=== PATIENT | female | born 1940 | race Caucasian/White ===

== ENCOUNTER 2016-12-08 20:41 | Inpatient (IN) | payer OTHER ==
[~2016-12-08] VITALS: Ht 144.8 cm; Wt 112.5 kg
[~2016-12-08 20:41] MED LIST: ADALAT CC60 MG PO; AMOXICILLIN500 MG PO; BIAXIN500 MG PO; CATAPRES0.1 MG PO; DEXILANT60 MG PO; DIOVAN HCT 25 M1 TA1 PO; DOC-Q-LACE100 M1 PO; ECOTRIN81 MG PO; FENTANYL TP; GLUCOPHAGE500 MG PO; IMDUR30 MG PO; IMDUR60 M1 PO; K-DUR10 MEQ PO; LASIX20 MG PO; LYRICA150 MG PO; LYRICA50 MG PO; LYRICA75 MG PO; NITROSTAT0.4 M1 SL; NORCO 10/325 MG1 TAB PO; NORCO 325 MG-7.1 TAB PO; NUVIGIL150 MG PO; PROTONIX40 MG PO; RANEXA500 MG PO; ULTRAM50 MG PO; VALSARTAN AND H1 TA3 PO; ZANTAC150 MG PO; ZOCOR20 MG PO
--- NOTE | 2016-12-08 20:53 | NUR ---
PT AMBULATED TO BED 1 WITH A CANE
[2016-12-08] MEDS ORDERED: NITROGLYCERIN 2% 1 GM PKT TP ONE (20:55)
[2016-12-08] MEDS ORDERED: ASPIRIN 325 MG TAB PO ONE (20:55)
[2016-12-08] MEDS ORDERED: MORPHINE SULFATE 4 MG/ML SYR IVP ONE (20:55)
[2016-12-08 21:00] VITALS: BP 133/41
--- NOTE | 2016-12-08 21:05 | NUR ---
76Y F BIB SPOUSE C/O CHEST PAIN W/ SOB AND NAUSEA, DENIES VOMITTING AND DIARRHEA. PAIN DESCRIBED PRESSSURE 8/10 IN SCALE. HX OF DM, HTN, HEART MURMUR. ARTHRITIS. SKIN IS PINK/WARM/DRY; AAOX4 WITH EVEN AND STEADY GAIT; LUNGS CLEAR BL; HR EVEN AND REGULAR; PT DENIES ANY FEVER, CP, SOB, OR COUGH AT THIS TIME; PATIENT STATES PAIN OF /10 AT THIS TIME; VSS; PATIENT POSITIONED FOR COMFORT; HOB ELEVATED; BEDRAILS UP X2; BED DOWN. ER MD MADE AWARE OF PT STATUS.
--- NOTE | 2016-12-08 21:16 | NUR ---
Dr. Bee evaluating patient at bedside.
[2016-12-08] MEDS ORDERED: diphenhydrAMINE 50 MG/ML VIAL IVP ONE (21:20)
--- NOTE | 2016-12-08 21:21 | NUR ---
X-Ray at bedside.
--- NOTE | 2016-12-08 21:25 | NUR ---
PT STATES CHEST PAIN 5/10
--- NOTE | 2016-12-08 22:59 | NUR ---
PT STATES CHEST PAIN 0/10
--- NOTE | 2016-12-08 23:10 | NUR ---
ALL VITAL SIGNS ENTERED FROM MONITOR
[2016-12-08] MEDS ORDERED: NITROGLYCERIN 0.4 MG TAB SL PRN (23:40)
[2016-12-08] MEDS ORDERED: MORPHINE SULFATE 2 MG/ML SYR IVP PRN (23:45)
[2016-12-08] MEDS ORDERED: ALUMINUM HYD/MAG/SIMETHICONE 30 ML UDC PO PRN (23:45)
[2016-12-08] MEDS ORDERED: DEXTROSE 50% 50 ML SYR IVP PRN (23:45)
[2016-12-08] MEDS ORDERED: ZOLPIDEM 5 MG TAB PO PRN (23:45)
[2016-12-08] MEDS ORDERED: ACETAMINOPHEN 325 MG TAB PO PRN ×2 (23:45)
[2016-12-08] MEDS ORDERED: LORazepam 1 MG TAB PO PRN (23:45)
[2016-12-08] MEDS ORDERED: INSULIN LISPRO SLIDING SCALE 100 UNITS/ML VIAL SUBQ PRN (23:45)
[2016-12-08] MEDS ORDERED: RANITIDINE HYD150 M2 PO (23:52)
[2016-12-08] MEDS ORDERED: RANEXA500 M1 PO (23:52)
[2016-12-08] MEDS ORDERED: DIOVAN320 MG PO (23:52)
[2016-12-08] MEDS ORDERED: TOPCARE ASPIRIN81 MG PO (23:52)
[2016-12-08] MEDS ORDERED: SIMVASTATIN20 M1 PO (23:52)
[2016-12-08] MEDS ORDERED: CLONIDINE HCL0.2 M1 PO (23:52)
[2016-12-08] MEDS ORDERED: ONDANSETRON4 MG PO (23:52)
[2016-12-08] MEDS ORDERED: NUVIGIL150 MG PO (23:52)
[2016-12-08] MEDS ORDERED: ISOSORBIDE MONO60 M1 PO (23:52)
[2016-12-08] MEDS ORDERED: FUROSEMIDE20 M1 PO (23:52)
--- NOTE | 2016-12-09 00:15 | NUR ---
REPORT CALLED TO AZAEL DILL ON TELE UNIT
--- NOTE | 2016-12-09 00:19 | NUR ---
PT C/O CP 03/09. DR CORRAL NOTIFIED. NITRO PASTE REMOVED PER DR CORRAL.
[2016-12-09] MEDS ORDERED: MORPHINE SULFATE 4 MG/ML SYR IVP ONE (00:20)
--- NOTE | 2016-12-09 00:31 | NUR ---
MORPHINE GIVEN. PT STATES PAIN 12/07. NITRO PASTE REMOVED, BP IMPROVED. PT SLEEPING, NO DISTRESS NOTED AT THIS TIME.
[2016-12-09] MEDS ORDERED: METFORMIN HYDR500 MG PO (00:45)
[2016-12-09] MEDS ORDERED: LYRICA75 MG PO ×2 (00:45)
[2016-12-09] MEDS ORDERED: LORAZEPAM0.5 M1 PO (00:45)
[2016-12-09] MEDS ORDERED: HYDROCODONE BIT1 T45 PO (00:45)
[2016-12-09] MEDS: CLOPIDOGREL 75 MG TAB PO SCH (00:50)
[2016-12-09] MEDS ORDERED: CLOPIDOGREL 75 MG TAB ONE (00:50)
--- NOTE | 2016-12-09 00:51 | NUR ---
Patient will be admitted to care of DR GIRON. Admited to TELE. Will go to 122B. Belongings list completed. Report to AZAEL MATHUR.
--- NOTE | 2016-12-09 00:55 | NUR ---
PT ARRIVED ON UNIT IN STABLE CONDITION. NO SOB, NO SIGNS OF DISTRESS. PT IS AOX4, THAI SPEAKING AND AMBULATES WITH CANE ASSIST. PLACED PT ON FALL PRECAUTIONS. VS STABLE ON ROOM AIR. PT PROVIDED WITH 2L O2 NC FOR C/O SOB. IV TO LT WRIST 22G PATENT, ASYMPTOMATIC, INTACT, SALINE LOCKED. SKIN IS INTACT. ORIENTED PT TO ROOM AND UNIT. PLAN OF CARE DISCUSSED WITH PT. SAFETY MEASURES IN PLACE. CALL LIGHT WITHIN REACH. WILL CONTINUE TO MONITOR.
[2016-12-09 01:33] VITALS: BP 157/54
--- NOTE | 2016-12-09 03:40 | NUR ---
CALL FROM LAB, ULYSSES UNABLE TO DRAW PTS BLOOD, STATED MIMI WILL COME AND TRY WHEN SHE ARRIVES IN 2 HRS.
[2016-12-09 04:00] VITALS: BP 99/46
--- NOTE | 2016-12-09 04:16 | NUR ---
VS STABLE. PT ON 2L O2 NC. NO SOB, NO SIGNS OF DISTRESS. IV SITE ASYMPTOMATIC, INTACT, SALINE LOCKED. PT DENIES PAIN AT THIS TIME. PLAN OF CARE DISCUSSED WITH PT. SAFETY MEASURES IN PLACE. CALL LIGHT WITHIN REACH. WILL CONTINUE TO MONITOR.
[2016-12-09] MEDS: BLOOD GLUCOSE MONITORING 1 DEV DEV FS SCH ×4 (06:33→20:27)
--- NOTE | 2016-12-09 07:14 | NUR ---
ENDORSED PT IN STABLE CONDITION TO AZAEL LEW. ALL NEEDS HAVE BEEN MET AT THIS TIME.
--- NOTE | 2016-12-09 07:15 | NUR ---
RECEIVED REPORT FROM THE FINANCIAL FOUNDATIONS ASSOCIATE NURSE AT BEDSIDE. PT IS ALERT AND ORIENTED. I INTRODUCED MYSELF AND UPDATED THE BOARD. PT IS MAORI SPEAKING, VERY LITTLE KHMER. NO COMPLAINTS OF CHEST PAIN. NO SOB. NO NAUSEA. PT'S SKIN IS INTACT. SOME EDEMA IN BLE, PITTING +1. SHE IS WEARING HER NC O2 AT 2L. NOTED IV ON L WRIST 22G SL. INTACT AND DRY. ALL SAFETY MEASURES IN PLACE. WILL CONTINUE TO MONITOR PT.
[2016-12-09 08:00] VITALS: BP 102/43
[2016-12-09] MEDS: PREGABALIN 25 MG CAP PO SCH (08:57)
[2016-12-09] MEDS: ISOSORBIDE MONONITRATE 30 MG TABER PO SCH ×2 (08:57→20:27)
[2016-12-09] MEDS: metFORMIN 500 MG TAB PO SCH (08:57)
[2016-12-09] MEDS: POTASSIUM CHLORIDE 10 MEQ TABER PO SCH (08:57)
[2016-12-09] MEDS: HYDROCHLOROTHIAZIDE 25 MG TAB PO SCH (08:58)
[2016-12-09] MEDS: FAMOTIDINE 20 MG TAB PO SCH (08:59)
[2016-12-09] MEDS: ECOTRIN 81 MG TABEC PO SCH (08:59)
[2016-12-09] MEDS: DOCUSATE SODIUM 100 MG GELCAP PO SCH (08:59)
[2016-12-09] MEDS ORDERED: HYDROCHLOROTHIAZIDE PO SCH (09:00)
[2016-12-09] MEDS ORDERED: VALSARTAN PO SCH (09:00)
[2016-12-09] MEDS ORDERED: cloNIDine 0.1 MG TAB PO SCH (09:00)
[2016-12-09] MEDS: SIMVASTATIN 20 MG TAB PO SCH (09:00)
[2016-12-09] MEDS ORDERED: VALSARTAN 80 MG TAB PO SCH (09:00)
[2016-12-09] MEDS ORDERED: ARMODAFINIL 150 MG PO SCH (09:00)
[2016-12-09] MEDS ORDERED: NON-FORMULARY ITEM (Ranitidine Hcl* (Zantac*) 150 MG) PO SCH (09:00)
[2016-12-09] MEDS: FUROSEMIDE 20 MG TAB PO SCH (09:00)
--- NOTE | 2016-12-09 09:10 | NUR ---
ADMINISTERED MORNING MEDS. BP DECREASED SO, HELD BP MEDS. PT TOLERATED WELL. ATE MOST OF HER BREAKFAST. C/O OF FATIGUE, BEING VERY SLEEPY. NO THER COMPLAINTS OF PAIN OR DISCOMFORT. WILL CONTINUE TO MONITOR PT.
--- NOTE | 2016-12-09 11:00 | NUR ---
PT SLEEPING SOUNDLY. NO SIGNS OF DISTRESS WILL CONTINUE TO MONITOR PT.
[2016-12-09 12:00] VITALS: BP 149/66
--- NOTE | 2016-12-09 12:40 | NUR ---
PT C/O OF PRESSURE ON CHEST AND L ARM NUMBNESS. DR. JORDAN WAS JUST IN THE NURSING STATION SO I SPOKE TO HIM ABOUT HER SX. WANTED A STAT VS CHECK, AND STAT EKG. ORDERED. V/S WITHIN NORMAL RANGE. EKG NORMAL. MINISTERED MORPHINE 2MG ORDERED AND NITRO. WILL REASSESS PT IN 5 MIN.
--- NOTE | 2016-12-09 12:44 | NUR ---
PT NO LONGER HAS NUMBNESS OR CHEST PRESSURE. PT IS DOING BETTER. NO COMPLAINTS. WILL CONTINUE TO MONITOR PT.
[2016-12-09] MEDS ORDERED: METOCLOPRAMIDE 10 MG TAB PO PRN (12:55)
[2016-12-09] MEDS ORDERED: hydrALAZINE 20 MG/ML VIAL IVP PRN (12:55)
--- NOTE | 2016-12-09 12:55 | NUR ---
DR. JORDAN GAVE VERBAL ORDERS: D/C CATAPRES. IMDUR HOLD IS BP BELOW 110 DIOVAN CHANGE TO 80MG. HOLD IF SYSTOLIC BELOW 110 HYDRALAZINE 5MG IVP Q6H IF BP ABOVE 170 PROTONIX 40MG QD REGLAN 5MG TID TROPONIN 1 NOW AND 8 HRS LATER TSH AND LIPID PANEL FOR AM TOMORROW EKG TOMORROW AM ECHO TOMORROW AM LEXISCAN 2PM TOMORROW. NPO EXCEPT MEDS AFTER CLEAR LIQ BREAKFAST (AFTER 7AM). NO METFORMIN IN THE MORNING. ALL ORDERS INPUTTED.
--- NOTE | 2016-12-09 14:20 | NUR ---
PT VISITING WITH FAMILY. NO COMPLAINTS AT THIS TIME. NO SIGNS OF DISTRESS. WILL CONTINUE TO MONITOR PT.
[2016-12-09 16:00] VITALS: BP 114/50
[2016-12-09] MEDS: ONDANSETRON 4 MG/2 ML VIAL IVP PRN (16:43)
--- NOTE | 2016-12-09 16:45 | NUR ---
PT WAS VISITING WITH FAMILY. SHE WAS FEELING NAUSEATED. ADMINISTERED SOME ZOFRAN. PT TOLERATED WELL. NO SIGNS OF DISCOMFORT OR DISTRESS. DENIED CHEST PAINS. DENIED NUMBNESS IN THE ARM. WILL CONTINUE TO MONITOR.
--- NOTE | 2016-12-09 18:00 | NUR ---
RADIOLOGY IS THERE FOR US OF ABDOMEN.
--- NOTE | 2016-12-09 19:05 | NUR ---
RECEIVED PT IN STABLE CONDITION FROM AZAEL LEW. NO SOB, NO SIGNS OF DISTRESS. PT IS AOX4, NAURUAN SPEAKING AND AMBULATES WITH CANE ASSIST. VS STABLE. PT WITH 2L O2 NC. IV TO LT WRIST 22G PATENT, ASYMPTOMATIC, INTACT, SALINE LOCKED. SKIN IS INTACT. PT DENIES PAIN AT THIS TIME. PLAN OF CARE DISCUSSED WITH PT. SAFETY MEASURES IN PLACE. CALL LIGHT WITHIN REACH. WILL CONTINUE TO MONITOR
--- NOTE | 2016-12-09 19:12 | NUR ---
ENDORSED PT TO THE NURSE AIDE NURSE AT BEDSIDE FOR CONTINUITY OF CARE. PT IS IN STABLE CONDITION.
[2016-12-09 20:00] VITALS: BP 113/40
[2016-12-09] MEDS: PREGABALIN 50 MG CAP PO SCH (20:27)
[2016-12-09] MEDS: HYDROcodone/APAP 7.5/325 MG 1 TAB PO PRN (20:33)
--- NOTE | 2016-12-09 20:33 | NUR ---
PT TOLERATED DUE MEDS WELL. PT C/O GENERALIZED BODY ACHE. MEDICATED PT FOR PAIN PER MD ORDER. NO SOB, NO SIGNS OF DISTRESS. PT ON 2L O2 NC. IV SITE ASYMPTOMATIC, INTACT, SALINE LOCKED. PLAN OF CARE DISCUSSED WITH PT. SAFETY MEASURES IN PLACE. CALL LIGHT WITHIN REACH. WILL CONTINUE TO MONITOR.
--- NOTE | 2016-12-09 22:33 | NUR ---
PT ASLEEP IN BED. NO SOB, NO SIGNS OF DISTRESS. PT ON 2L O2 NC. IV SITE ASYMPTOMATIC, INTACT, SALINE LOCKED. SAFETY MEASURES IN PLACE. CALL LIGHT WITHIN REACH. WILL CONTINUE TO MONITOR.
[2016-12-10] VITALS (7 sets, daily range): BP systolic 128–150; BP diastolic 38–65
--- NOTE | 2016-12-10 04:32 | NUR ---
ENDORSED PT IN STABLE CONDITION TO RITA, PERSONAL INJURY LITIGATION PAR[place]GAL. ALL NEEDS HAVE BEEN MET AT THIS TIME.
--- NOTE | 2016-12-10 04:33 | NUR ---
PATIENT STABLE WANTS TO USE THE BATHROOM TO VOID SO I ASSISTED TO THE PATIENT TO THE BATHROOM AND THEN BACK TO BED,PT DENIES PAIN AND DISCOMFORT AT THIS TIME.NEEDS CONTINUE TO BE MET.CALL LIGHT WITHIN REACH WILL CONTINUE TO MONITOR.
--- NOTE | 2016-12-10 04:33 | NUR ---
VITAL SIGNS TAKEN, AND NEW BLOOD PRESSURE CUFF GIVEN TO THE PATIENT, PT TOLD ME THAT SHE FEELS UNCOMFORTABLE WHEN IT INFLATES PREVIOUS CUFF DISCARDED.
--- NOTE | 2016-12-10 06:29 | NUR ---
PATIENT IS CURRENTLY RESTING IN BED SLEEPING CONTINUES TO HAVE OXYGEN AT 2L VIA NASAL CANNULA.NO PAIN OR DISCOMFORT NOTED AT THIS TIME.NO COMPLAINS OF CHEST PAIN SINCE I HAVE RECEIVED THE PATIENT.PATIENT NEEDS CONTINUE TO BE MET.FALL PRECAUTIONS IMPLEMENTED CALL LIGHT WITHIN REACH.
[2016-12-10] MEDS: BLOOD GLUCOSE MONITORING 1 DEV DEV FS SCH ×4 (06:47→20:10)
--- NOTE | 2016-12-10 07:23 | NUR ---
PATIENT STABLE REPORT ENDORSED TO IZABELLA AT BEDSIDE SHE WILL RESUME CARE OF THE PATIENT.
--- NOTE | 2016-12-10 07:30 | NUR ---
RECEIVED PT FROM RITA . PT IS AWAKE, ALERT, AND ORIENTED. UGANDAN SPEAKING ONLY. NO S/S OF RESPIRATORY DISTRESS NOTED. PT ON O2 NC 2L/MIN, LUNG SOUNDS CLEAR. ABDOMEN SOFT, NONTENDER WITH ACTIVE BOWEL SOUND. SKIN INTACT, WARM AND DRY. +1 EDEMA TO BLE. IV #22 TO LEFT HAND , SALINE LOCKED. FREELY FLUSHED. PT DENIES PAIN AT THIS TIME. POC DISCUSSED WITH PT. SAFETY MEASURES IN PLACE, CALL LIGHT IN REACH, WILL CONTINUE TO MONITOR.
[2016-12-10] MEDS: SIMVASTATIN 20 MG TAB PO SCH (08:26)
[2016-12-10] MEDS: FAMOTIDINE 20 MG TAB PO SCH (08:26)
[2016-12-10] MEDS: PREGABALIN 25 MG CAP PO SCH (08:27)
[2016-12-10] MEDS: POTASSIUM CHLORIDE 10 MEQ TABER PO SCH (08:27)
[2016-12-10] MEDS: HYDROCHLOROTHIAZIDE 25 MG TAB PO SCH (08:28)
[2016-12-10] MEDS: CLOPIDOGREL 75 MG TAB PO SCH (08:28)
[2016-12-10] MEDS: ISOSORBIDE MONONITRATE 30 MG TABER PO SCH ×2 (08:28→20:27)
[2016-12-10] MEDS: DOCUSATE SODIUM 100 MG GELCAP PO SCH (08:30)
[2016-12-10] MEDS: ECOTRIN 81 MG TABEC PO SCH (08:31)
[2016-12-10] MEDS: FUROSEMIDE 20 MG TAB PO SCH (08:31)
[2016-12-10] MEDS ORDERED: DOBUTamine 250 MG/D5W PREMIX 250 ML IV SCH (08:49)
[2016-12-10] MEDS ORDERED: PANTOPRAZOLE 40 MG INJ VIAL IVP SCH (09:00)
[2016-12-10] MEDS ORDERED: ARMODAFINIL 150 MG TAB PO SCH (09:00)
[2016-12-10] MEDS ORDERED: REGADENOSON 0.4 MG/5 ML SYR IV SCH (09:00)
[2016-12-10] MEDS ORDERED: VALSARTAN 80 MG TAB PO SCH (09:00)
[2016-12-10] MEDS: metFORMIN 500 MG TAB PO SCH (09:00)
--- NOTE | 2016-12-10 09:16 | NUR ---
PATIENT HAS BEEN SCREENED AND CATEGORIZED MODERATE NUTRITION RISK. PATIENT WILL BE SEEN WITHIN 3-5 DAYS OF ADMISSION. 12/11/16-12/13/[address]
[2016-12-10] MEDS ORDERED: ATROPINE 1 MG/10 ML SYR IVP SCH (15:45)
--- NOTE | 2016-12-10 16:34 | NUR ---
PT BACK TO UNIT AFTER STRESS TEST. NO S/S OF RESPIRATORY DISTRESS NOTED AT THIS TIME.
[2016-12-10] MEDS: HYDROcodone/APAP 7.5/325 MG 1 TAB PO PRN (17:00)
--- NOTE | 2016-12-10 18:01 | NUR ---
PT COMPLAINED HEADACHE, CHECKED BP129/55. HR 74. O2 SAT 100%, ORAL TEMP 98.3. NOTIFIED DR. BURNHAM.Guy WHO IS IN THE UNIT AT THIS TIME, WILL FOLLOW UP.
[2016-12-10] MEDS ORDERED: LORATADINE 10 MG TAB PO SCH (18:30)
[2016-12-10] MEDS ORDERED: PLAVIX75 M1 PO (18:38)
[2016-12-10] MEDS ORDERED: CLARITIN10 M1 PO (18:38)
[2016-12-10] MEDS ORDERED: COLACE100 M1 PO (18:38)
[2016-12-10] MEDS ORDERED: SUDAFED30 M1 PO (18:38)
--- NOTE | 2016-12-10 19:15 | NUR ---
RECEIVED PT IN STABLE CONDITION FROM AZAEL PAREKH. NO SOB, NO SIGNS OF DISTRESS. PT IS AOX4, HUNGARIAN SPEAKING AND AMBULATES WITH CANE ASSIST. VS STABLE. PT WITH 2L O2 NC. IV TO RT HAND 22G PATENT, ASYMPTOMATIC, INTACT, SALINE LOCKED. SKIN IS INTACT. PT C/O HEADACHE, WILL MEDICATE PER MD ORDER. PLAN OF CARE DISCUSSED WITH PT. SAFETY MEASURES IN PLACE. CALL LIGHT WITHIN REACH. WILL CONTINUE TO MONITOR.
--- NOTE | 2016-12-10 19:42 | NUR ---
LETHA JORDAN TO MAKE AWARE OF STRESS TEST RESULTS AND TO OK DC BY CONSULT. WAITING FOR CALL BACK.
[2016-12-10] MEDS: PREGABALIN 50 MG CAP PO SCH (20:26)
--- NOTE | 2016-12-10 20:29 | NUR ---
PT TOLERATED DUE MEDS WELL. PT C/O HEADACHE. MEDICATED PT FOR PAIN PER MD ORDER. NO SOB, NO SIGNS OF DISTRESS. PT ON 2L O2 NC. IV SITE ASYMPTOMATIC, INTACT, SALINE LOCKED. PLAN OF CARE DISCUSSED WITH PT. SAFETY MEASURES IN PLACE. CALL LIGHT WITHIN REACH. WILL CONTINUE TO MONITOR.
--- NOTE | 2016-12-10 20:33 | NUR ---
LETHA HUTCHINSON JULIAN
--- NOTE | 2016-12-10 20:36 | NUR ---
SPOKE WITH MD JORDAN, MADE AWARE OF STRESS TEST RESULTS. STATED PT CAN BE DC AND TO F/U IN HIS OFFICE IN ONE WEEK AND TO BRING STRESS TEST RESULTS WITH HER TO APPOINTMENT.
[2016-12-10] MEDS ORDERED: PSEUDOEPHEDRINE 30 MG TAB PO SCH ×2 (21:00)
--- NOTE | 2016-12-10 21:00 | NUR ---
PT MADE AWARE THAT SHE WILL BE DC AT 0600 IN AM, PT STATED HER FAMILY WILL PICK HER UP AT THAT TIME.
[2016-12-11] VITALS: BP 126/47
[2016-12-11 02:54] VITALS: BP 151/57
--- NOTE | 2016-12-11 03:55 | NUR ---
VS STABLE. PT ON 2L O2 NC. NO SOB, NO SIGNS OF DISTRESS. IV SITE ASYMPTOMATIC, INTACT, SALINE LOCKED. PT DENIES PAIN AT THIS TIME, PT C/O NAUSEA. WILL MEDICATE PER MD ORDER. SAFETY MEASURES IN PLACE. CALL LIGHT WITHIN REACH. WILL CONTINUE TO MONITOR.
[2016-12-11 04:00] VITALS: BP 151/57
[2016-12-11] MEDS: ONDANSETRON 4 MG/2 ML VIAL IVP PRN (04:10)
[2016-12-11] MEDS: BLOOD GLUCOSE MONITORING 1 DEV DEV FS SCH (05:55)
--- NOTE | 2016-12-11 06:05 | NUR ---
PT DC IN STABLE CONDITION UNDER CARE OF SON. PATIENT TEACHING AND DISCHARGE INSTRUCTIONS GIVEN. PT ADVISED TO F/U WITH MD Claudia BURNHAM AND MD Igor JORDAN IN ONE WEEK. AL QUESTIONS ANSWERED.
[2016-12-11] MEDS ORDERED: PSEUDOEPHEDRINE 30 MG TAB PO SCH ×2 (09:00)
[2017-03-25] MEDS ORDERED: OMEPRAZOLE20 M3 PO (11:52)
[2017-04-23] MEDS ORDERED: CATAPRES0.2 MG PO (20:55)
[2017-04-23] MEDS ORDERED: APAP/HYDROCODON1 T30 PO (20:55)
== END 2016-12-11 06:05 | disposition home or self-care (01) | DRG 206 ==
LOC: MED 20:41 → MTU 22:56
PROVIDERS: ADMIT Preventive Medicine Preventive Medicine/Occupational Environmental Medicine; ATTEND Preventive Medicine Preventive Medicine/Occupational Environmental Medicine
DX: M94.0 Chondrocostal junction syndrome [Tietze] (principal); E87.0 Hyperosmolality and hypernatremia; Z68.43 Body mass index [BMI] 50.0-59.9, adult; D64.9 Anemia, unspecified; I50.9 Heart failure, unspecified; E11.65 Type 2 diabetes mellitus with hyperglycemia; K21.9 Gastro-esophageal reflux disease without esophagitis; K29.70 Gastritis, unspecified, without bleeding; E78.5 Hyperlipidemia, unspecified; E66.9 Obesity, unspecified; E83.52 Hypercalcemia; I11.0 Hypertensive heart disease with heart failure; I25.119 Atherosclerotic heart disease of native coronary artery with unspecified angina pectoris; Z79.899 Other long term (current) drug therapy; Z86.73 Personal history of transient ischemic attack (TIA), and cerebral infarction without residual deficits

== ENCOUNTER 2017-02-27 10:29 | Inpatient (IN) | payer OTHER ==
[~2017-02-27] VITALS: Ht 121.9 cm; Wt 117.9 kg
[~2017-02-27 10:29] MED LIST changes: +ACET-2863 PO; -ADALAT CC60 MG PO; -AMOXICILLIN500 MG PO; +ASPI-1081 PO; +ASPI-1093 PO; -BIAXIN500 MG PO; -CATAPRES0.1 MG PO; +CLON0.1T42 PO; +CLON0.2T15 PO; +CLOP75TA5 PO; -DEXILANT60 MG PO; -DIOVAN HCT 25 M1 TA1 PO; -DOC-Q-LACE100 M1 PO; +DOCU-67 PO; -ECOTRIN81 MG PO; -FENTANYL TP; +FURO-572 PO; +FURO20TA8 PO; -GLUCOPHAGE500 MG PO; +HYDR-318 PO; -IMDUR30 MG PO; -IMDUR60 M1 PO; +ISOS60TE PO; +ISOS60TE3 PO; -K-DUR10 MEQ PO; -LASIX20 MG PO; +LORA0.5T6 PO; +LORA10TA19 PO; +LYR75 PO; -LYRICA150 MG PO; -LYRICA50 MG PO; -LYRICA75 MG PO; +METF-335 PO; +METF500T PO; +NITR0.4T2 SL; -NITROSTAT0.4 M1 SL; -NORCO 10/325 MG1 TAB PO; -NORCO 325 MG-7.1 TAB PO; -NUVIGIL150 MG PO; +ONDA4TAB PO; +POTA10TA10 PO; +PREG150C PO; -PROTONIX40 MG PO; +RANEX500 PO; -RANEXA500 MG PO; +RANI-287 PO; +RANI150C PO; +SIMV20TA1 PO; +SIMV20TA6 PO; +SUD30 PO; -ULTRAM50 MG PO; +VALS320T2 PO; -VALSARTAN AND H1 TA3 PO; -ZANTAC150 MG PO; -ZOCOR20 MG PO; +[UNRECOGNIZED DRUG - CODE] PO; +[UNRECOGNIZED DRUG - CODE] PO
[2017-02-27 10:59] VITALS: BP 108/41
--- NOTE | 2017-02-27 11:06 | NUR ---
PT HR 48, SYMPTOMATIC. ER MD MADE AWARE.
--- NOTE | 2017-02-27 11:08 | NUR ---
Patient ambulated to bed 7. RN evaluating patient at bedside.
--- NOTE | 2017-02-27 11:09 | NUR ---
Note undone in EDM - 02/27/17 at 1349 by [email or web address] 76/F HERE FOR ABD PAIN X4 DAYS. C/O NAUSEA AND DIZZINESS WITH DECREASED PO. HX ASTHMA, HTN, RA, GASTRITIS. PT HR 48.NOTIFIED ER MD DR PAN. SKIN IS PINK/WARM/DRY; AAOX4 WITH EVEN AND STEADY GAIT; LUNGS CLEAR BL; HR EVEN AND REGULAR; PT DENIES ANY FEVER, CP, SOB, OR COUGH AT THIS TIME; PATIENT STATES PAIN OF 9/10 AT THIS TIME; VSS; PATIENT POSITIONED FOR COMFORT; HOB ELEVATED; BEDRAILS UP X2; BED DOWN. ER MD MADE AWARE OF PT STATUS.
--- NOTE | 2017-02-27 11:09 | NUR ---
76/F HERE FOR ABD PAIN X4 DAYS. C/O NAUSEA AND DIZZINESS WITH DECREASED PO. HX ASTHMA, HTN, RA, GASTRITIS. PT HR 48.NOTIFIED ER MD DR PAN. SKIN IS PINK/WARM/DRY; AAOX4 WITH EVEN AND UNSTEADY GAIT, AMBULATES W/ CANE; LUNGS CLEAR BL; HR EVEN AND REGULAR; PT DENIES ANY FEVER, CP, SOB, OR COUGH AT THIS TIME; PATIENT STATES PAIN OF 9/10 AT THIS TIME; VSS; PATIENT POSITIONED FOR COMFORT; HOB ELEVATED; BEDRAILS UP X2; BED DOWN. ER MD MADE AWARE OF PT STATUS.
[2017-02-27] MEDS ORDERED: ATROPINE 1 MG/10 ML SYR IVP ONE ×3 (11:10→11:40)
[2017-02-27 11:22] LABS: BASOPHILS # (AUTO) 0.5 K/uL (0.00-0.22); BASOPHILS % (AUTO) 4.4 % (0.0-2.0); EOSINOPHILS # (AUTO) 0.2 K/uL (0-0.4); HEMATOCRIT 37.2 % (36-48); HEMOGLOBIN 12.4 g/dL (12.0-16.0); LYMPHOCYTES # (AUTO) 2.2 K/uL (2.5-16.5); LYMPHOCYTES % (AUTO) 18.5 % (20.5-51.1); MEAN CORPUSCULAR HEMOGLOBIN 28 pg (27-31); MEAN CORPUSCULAR HGB CONC 33 g/dL (33-37); MEAN CORPUSCULAR VOLUME 85 fL (80-94); MONOCYTES # (AUTO) 0.8 K/uL (0.8-1.0); MONOCYTES % (AUTO) 6.3 % (1.7-9.3); NEUTROPHILS # (AUTO) 8.3 K/uL (1.8-7.7); NEUTROPHILS % (AUTO) 68.8 % (42.2-75.2); PLATELET COUNT (AUTO) 294 K/uL (140-450); RED BLOOD CELL COUNT(AUTO) 4.37 MIL/uL (4.20-5.40); RED CELL DISTRIBUTION WIDTH 13.7 % (11.6-13.7)
[2017-02-27 11:36] LABS: PARTIAL THROMBOPLASTIN TIME 27.2 secs (22-35.6); PROTHROMBIN TIME 9.8 secs (10.8-13.4)
[2017-02-27 11:38] LABS: ALANINE AMINOTRANSFERASE 14 U/L (12-78); ALBUMIN 3.6 g/dL (3.4-5.0); ALKALINE PHOSPHATASE 131 U/L (46-116); ANION GAP 11.9 (8-16); ASPARTATE AMINOTRANSFERASE 13 U/L (15-37); CALCIUM 9.4 mg/dL (8.5-10.1); CARBON DIOXIDE 31.8 mmol/L (21-32); CHLORIDE 100 mmol/L (98-107); CREATININE 0.9 mg/dL (0.6-1.3); GLUCOSE 114 mg/dL (74-106); POTASSIUM 4.7 mmol/L (3.5-5.1); SODIUM SERUM 139 mmol/L (136-145); TOTAL BILIRUBIN 0.3 mg/dL (0.0-1.0); TOTAL PROTEIN, SERUM 7.6 g/dL (6.4-8.2); UREA NITROGEN, BLOOD 13 mg/dL (7-18)
[2017-02-27] MEDS ORDERED: ALUMINUM HYD/MAG/SIMETHICONE 30 ML, DICYCLOMINE HCL LIQUID 20 MG, LIDOCAINE VISCOUS 2% ... PO ONE ×3 (12:35)
[2017-02-27] MEDS ORDERED: NITROGLYCERIN 0.4 MG TAB SL PRN (13:05)
[2017-02-27] MEDS ORDERED: ONDANSETRON 4 MG/2 ML VIAL IVP PRN (13:05)
[2017-02-27] MEDS ORDERED: HYDROCODONE PO SCH (13:05)
[2017-02-27] MEDS ORDERED: IBUPROFEN PO SCH (13:05)
[2017-02-27] MEDS ORDERED: ATROPINE 0.5 MG/5 ML SYR IVP ONE (13:15)
--- NOTE | 2017-02-27 13:25 | NUR ---
Patient will be admitted to care of DR Guy ROLAND. Admited to TELE . Will go to room 121 A . Belongings list completed. Report to AZAEL ROSE.
--- NOTE | 2017-02-27 14:30 | NUR ---
PT BROUGHT IN FROM ER IN [facility], PT AMBULATES FROM HALLWAY TO BED WITH STEADY GAIT, PT AWAKE ALERT, OX4, RESP LEONEL UNLABORED ON 2L NC, VITALS STABLE, HR 48-50, BP 121/48, O2SAT 100%, INITIAL ASSESSMENT COMPLETED, PLAN OF CARE DISCUSSED, PT HERE WITH DAUGHTER IN LAW WHO PT ALLOWS TO TRANSLATE, PT ORIENTED TO ROOM AND FLOOR, CALL GARCIA WITHIN REACH, SIDE RAILS UP X2, BED LOCKED IN LOW POSITION, WILL CONTINUE TO MONITOR.
[2017-02-27 14:45] VITALS: BP 121/48
[2017-02-27 16:00] VITALS: BP 106/49
[2017-02-27] MEDS: ONDANSETRON 4 MG TAB PO SCH (17:00)
[2017-02-27] MEDS: LORazepam 0.5 MG TAB PO SCH (17:00)
[2017-02-27] MEDS: metFORMIN 500 MG TAB PO SCH (17:58)
--- NOTE | 2017-02-27 18:15 | NUR ---
PT C/O CHEST DISCOMFORT/TIGHTNESS WITH DEEP BREATH, PT DENIES "CHEST PAIN", PT AAOX4, RESP EVEN UNLABORED SPEAKS CLEARLY WITHOUT PROBLEM, Guy LUND NOTIFIED ON THE PHONE, STAT EKG, IBUPROFEN 400MG X1 ORDERED AT THIS TIME, RT NOTIFIED OF STAT EKG.
[2017-02-27] MEDS ORDERED: IBUPROFEN 400 MG TAB PO SCH (18:20)
[2017-02-27] MEDS ORDERED: INSULIN LISPRO SLIDING SCALE 100 UNITS/ML VIAL SUBQ PRN (18:20)
[2017-02-27] MEDS ORDERED: DEXTROSE 50% 50 ML SYR IVP PRN (18:25)
--- NOTE | 2017-02-27 19:20 | NUR ---
RECD. RESTING IN BED, AWAKE, A/OX4. RESPIRATION EVEN AND UNLABORED. IV SALINE LOCK AT THE RIGHT FOREARM G 22, PATENT AND INTACT. CONVERSING WITH VISITOR AT THE BEDSIDE. DENIES CHEST PAIN 0/10 BUT STATED WITH HEAVINESS IN THE CHEST. PLAN OF CARE FOR THE SHIFT DISCUSSED. INSTRUCTED TO CALL NURSE WHENEVER GETTING OUT OF BED FOR ASSISTANCE. VERBALIZED UNDERSTANDING.
--- NOTE | 2017-02-27 19:31 | NUR ---
Patient's Plan of Care was discussed and reviewed with CHIEF HYDROELECTRIC STATION OPERATOR: ALYSHA Taylor
[2017-02-27 20:00] VITALS: BP 125/60
[2017-02-27 20:19] LABS: CREATINE KINASE MB 0.1 ng/mL (0-3.6)
[2017-02-27] MEDS: PSEUDOEPHEDRINE 30 MG TAB PO SCH (20:55)
[2017-02-27] MEDS: RANOLAZINE 500 MG TER PO SCH (20:55)
[2017-02-27] MEDS: PREGABALIN 50 MG CAP PO SCH (20:56)
[2017-02-27] MEDS: ISOSORBIDE MONONITRATE 30 MG TABER PO SCH (20:56)
--- NOTE | 2017-02-27 20:56 | NUR ---
DUE PO MEDICATIONS GIVEN, TOLERATED WELL.
[2017-02-27] MEDS ORDERED: NON-FORMULARY ITEM (Ranitidine HCl (Ranitidine Hydrochloride) 150 MG) PO SCH (21:00)
[2017-02-27] MEDS ORDERED: cloNIDine 0.1 MG TAB PO SCH (21:00)
[2017-02-27] MEDS: BLOOD GLUCOSE MONITORING 1 DEV DEV FS SCH (21:31)
[2017-02-28] VITALS: BP 118/60
--- NOTE | 2017-02-28 02:00 | NUR ---
SLEEPING COMFORTABLY IN BED.
--- NOTE | 2017-02-28 02:00 | NUR ---
TRANSFERRED TO ROOM 108-B.
[2017-02-28 04:00] VITALS: BP 102/63
--- NOTE | 2017-02-28 04:00 | NUR ---
STILL SB ON TELE MONITORING, HR - 52, ASYMPTOMATIC.
[2017-02-28] MEDS: BLOOD GLUCOSE MONITORING 1 DEV DEV FS SCH ×4 (05:51→21:28)
[2017-02-28 06:29] LABS: BASOPHILS # (AUTO) 0.1 K/uL (0.00-0.22); BASOPHILS % (AUTO) 1.2 % (0.0-2.0); EOSINOPHILS # (AUTO) 0.2 K/uL (0-0.4); EOSINOPHILS % (AUTO) 2.4 % (0.0-4.0); HEMATOCRIT 33.8 % (36-48); HEMOGLOBIN 10.9 g/dL (12.0-16.0); LYMPHOCYTES # (AUTO) 2.7 K/uL (2.5-16.5); LYMPHOCYTES % (AUTO) 30.6 % (20.5-51.1); MEAN CORPUSCULAR HEMOGLOBIN 28 pg (27-31); MEAN CORPUSCULAR HGB CONC 32 g/dL (33-37); MEAN CORPUSCULAR VOLUME 87 fL (80-94); MONOCYTES # (AUTO) 0.7 K/uL (0.8-1.0); MONOCYTES % (AUTO) 7.9 % (1.7-9.3); NEUTROPHILS # (AUTO) 5.3 K/uL (1.8-7.7); NEUTROPHILS % (AUTO) 57.9 % (42.2-75.2); PLATELET COUNT (AUTO) 267 K/uL (140-450); RED BLOOD CELL COUNT(AUTO) 3.87 MIL/uL (4.20-5.40); RED CELL DISTRIBUTION WIDTH 13.8 % (11.6-13.7)
--- NOTE | 2017-02-28 06:41 | NUR ---
CONDITION REMAIN STABLE. NO COMPLAINT OF CHEST PAIN DURING SHIFT. WILL ENDORSE TO AM NURSE FOR CONTINUITY OF CARE.
[2017-02-28 06:49] LABS: ANION GAP 11.1 (8-16); CARBON DIOXIDE 33.6 mmol/L (21-32); CHLORIDE 99 mmol/L (98-107); CREATININE 1.4 mg/dL (0.6-1.3); GLUCOSE 105 mg/dL (74-106); MAGNESIUM 2.3 mg/dL (1.8-2.4); PHOSPHORUS 5.4 mg/dL (2.5-4.9); POTASSIUM 4.7 mmol/L (3.5-5.1); SODIUM SERUM 139 mmol/L (136-145); UREA NITROGEN, BLOOD 24 mg/dL (7-18)
--- NOTE | 2017-02-28 07:15 | NUR ---
ENDORSED TO AZAEL KUMAR FOR CONTINUITY OF CARE.
--- NOTE | 2017-02-28 07:20 | NUR ---
REPORT RECEIVED FROM CONDITIONING ROOM WORKER, PT RESTING QUIETLY, RESP EVEN UNLABORED ON 2L NC, SPEAKING CLEARLY IN NAD, PT DENIES PAIN OR DISCOMFORT, PLAN OF CARE DISCUSSED, PT DENIES ANY IMMEDIATE NEEDS, CALL GARCIA WITHIN REACH, SIDE RAILS UP, BED LOCKED IN LOW POSITION, WILL CONTINUE TO MONITOR.
[2017-02-28 08:00] VITALS: BP 132/60
[2017-02-28] MEDS ORDERED: FAMOTIDINE 20 MG TAB PO SCH (08:00)
[2017-02-28] MEDS ORDERED: ARMODAFINIL PO SCH (09:00)
[2017-02-28] MEDS: LORazepam 0.5 MG TAB PO SCH ×4 (09:00→22:59)
[2017-02-28] MEDS: PSEUDOEPHEDRINE 30 MG TAB PO SCH ×2 (09:00→21:28)
[2017-02-28] MEDS: FUROSEMIDE 20 MG TAB PO SCH (09:01)
[2017-02-28] MEDS: ECOTRIN 81 MG TABEC PO SCH (09:01)
[2017-02-28] MEDS: DOCUSATE SODIUM 100 MG GELCAP PO SCH (09:01)
[2017-02-28] MEDS: metFORMIN 500 MG TAB PO SCH ×3 (09:01→17:54)
[2017-02-28] MEDS: CLOPIDOGREL 75 MG TAB PO SCH (09:02)
[2017-02-28] MEDS: LORATADINE 10 MG TAB PO SCH (09:02)
[2017-02-28] MEDS: RANOLAZINE 500 MG TER PO SCH ×2 (09:04→21:17)
[2017-02-28] MEDS: ISOSORBIDE MONONITRATE 30 MG TABER PO SCH ×2 (09:06→21:18)
--- NOTE | 2017-02-28 09:13 | NUR ---
PATIENT HAS BEEN SCREENED AND CATEGORIZED HIGH NUTRITION RISK. PATIENT WILL BE SEEN WITHIN 1-2 DAYS OF ADMISSION. 02/27/17-02/28/[address]
[2017-02-28] MEDS: PANTOPRAZOLE 40 MG TABEC PO SCH (09:14)
[2017-02-28] MEDS: PREGABALIN 25 MG CAP PO SCH (09:14)
[2017-02-28] MEDS: POTASSIUM CHLORIDE 10 MEQ TABER PO SCH (09:15)
[2017-02-28] MEDS: VALSARTAN 80 MG TAB PO SCH (09:15)
[2017-02-28] MEDS: ONDANSETRON 4 MG TAB PO SCH ×3 (09:15→17:55)
[2017-02-28] MEDS: SIMVASTATIN 20 MG TAB PO SCH (09:15)
[2017-02-28] MEDS: ACETAMINOPHEN 325 MG TAB PO PRN ×2 (11:40→21:37)
--- NOTE | 2017-02-28 11:40 | NUR ---
PT C/O BILAT KNEE PAIN AFTER PHYSICAL THERAPY, RATES 5/10, TYLENOL GIVEN PER PRN ORDER, PT WITH UNLABORED RESP, SKIN WARM DRY COLOR WNL, DENIES SOB OR DIFF BREATHING, CALL GARCIA WITHIN REACH, WILL CONTINUE TO MONITOR.
[2017-02-28 12:00] VITALS: BP 119/45
--- NOTE | 2017-02-28 13:46 | NUR ---
PT SITTING UP IN BED CHATTING SMILING WITH VISITOR, REP EVEN UNLABORED, SKIN WARM DRY COLOR WNL, PT DENIES SOB OR DIFFICULTY BREATHING, DENIES CHEST PAIN OR DISCOMFORT, DENIES ANY IMMEDIATE NEEDS, CALL GARCIA WITHIN REACH, SIDE RAILS UP, BED LOCKED IN LOW POSITION, WILL CONTINUE TO MONITOR.
--- NOTE | 2017-02-28 14:09 | NUR ---
02/28/17 RD INITIAL ASSESSMENT COMPLETED PLEASE REFER TO NUTRITION ASSESSMENT UNDER CARE ACTIVITY FOR ESTIMATED NUTRITIONAL NEEDS. 1. CONTINUE CARDIAC DIET 2. RD TO FOLLOW-UP 2-3 DAYS; HIGH RISK ION R[address]LAND RD
[2017-02-28 15:11] LABS: CREATINE KINASE MB 0.8 ng/mL (0-3.6)
[2017-02-28 16:00] VITALS: BP 130/59
--- NOTE | 2017-02-28 17:54 | NUR ---
DUE MEDS GIVEN, PT SITTING UP WATCHING TV, DENIES CHEST PAIN OR DISCOMFORT, DENIES SOB, PT DENIES ANY IMMEDIATE NEEDS, NO INSULIN COVERAGE FOR BLOOD GLUCOSE 93, PT REMAINS ON TAKE AWAY MAN, CALL GARCIA WITHIN REACH, SIDE RAILS UP, BED LOCKED IN LOW POSITION, WILL CONTINUE TO MONITOR
--- NOTE | 2017-02-28 19:34 | NUR ---
REPORT GIVEN TO BANKING MANAGER, PT IN STABLE CONDITION.
--- NOTE | 2017-02-28 19:35 | NUR ---
RECD. RESTING IN BED, AWAKE, A/OX4. RESPIRATION EVEN AND UNLABORED. IV SALINE LOCK AT THE RIGHT FOREARM G22, PATENT AND INTACT. WATCHING TV. PLAN OF CARE FOR THE SHIFT DISCUSSED. VERBALIZED UNDERSTANDING. DENIES PAIN 0/10.
[2017-02-28 20:00] VITALS: BP 108/50
--- NOTE | 2017-02-28 20:00 | NUR ---
Patient's Plan of Care was discussed and reviewed with OPTIONS ADVISOR: ALYSHA WHEATLEY
[2017-02-28] MEDS: PREGABALIN 50 MG CAP PO SCH (21:17)
--- NOTE | 2017-02-28 21:18 | NUR ---
DUE PO MEDICATIONS GIVEN. ATE 100% OF SNACK.
--- NOTE | 2017-02-28 22:59 | NUR ---
WITH ANXIETY, MEDICATED WITH ATIVAN 0.5 MG PO ORDERED.
--- NOTE | 2017-02-28 23:59 | NUR ---
NO ANXIETY NOTED, RESTING IN BED.
[2017-03-01] VITALS: BP 114/61
--- NOTE | 2017-03-01 | NUR ---
SLEEPING COMFORTABLY IN BED.
[2017-03-01 04:00] VITALS: BP 109/63
--- NOTE | 2017-03-01 04:00 | NUR ---
RESTING IN BED, NO COMPLAINT OF PAIN 0/10.
[2017-03-01] MEDS: BLOOD GLUCOSE MONITORING 1 DEV DEV FS SCH ×3 (06:17→11:59)
--- NOTE | 2017-03-01 06:38 | NUR ---
CONDITION REMAIN STABLE. WILL ENDORSED TO AM NURSE FOR CONTINUITY OF CARE.
[2017-03-01 06:50] LABS: BASOPHILS # (AUTO) 0.3 K/uL (0.00-0.22); BASOPHILS % (AUTO) 4.1 % (0.0-2.0); EOSINOPHILS # (AUTO) 0.3 K/uL (0-0.4); EOSINOPHILS % (AUTO) 3.4 % (0.0-4.0); HEMATOCRIT 34.9 % (36-48); HEMOGLOBIN 11.3 g/dL (12.0-16.0); LYMPHOCYTES # (AUTO) 2.2 K/uL (2.5-16.5); LYMPHOCYTES % (AUTO) 28.2 % (20.5-51.1); MEAN CORPUSCULAR HEMOGLOBIN 28 pg (27-31); MEAN CORPUSCULAR HGB CONC 32 g/dL (33-37); MEAN CORPUSCULAR VOLUME 86 fL (80-94); MONOCYTES # (AUTO) 0.6 K/uL (0.8-1.0); MONOCYTES % (AUTO) 7.2 % (1.7-9.3); NEUTROPHILS # (AUTO) 4.6 K/uL (1.8-7.7); NEUTROPHILS % (AUTO) 57.1 % (42.2-75.2); PLATELET COUNT (AUTO) 267 K/uL (140-450); RED BLOOD CELL COUNT(AUTO) 4.08 MIL/uL (4.20-5.40); RED CELL DISTRIBUTION WIDTH 13.6 % (11.6-13.7)
[2017-03-01 07:06] LABS: ANION GAP 9.7 (8-16); CALCIUM 8.7 mg/dL (8.5-10.1); CARBON DIOXIDE 33.4 mmol/L (21-32); CHLORIDE 98 mmol/L (98-107); CREATININE 1.3 mg/dL (0.6-1.3); GLUCOSE 94 mg/dL (74-106); POTASSIUM 5.1 mmol/L (3.5-5.1); SODIUM SERUM 136 mmol/L (136-145); UREA NITROGEN, BLOOD 26 mg/dL (7-18)
[2017-03-01 07:16] LABS: MAGNESIUM 2.3 mg/dL (1.8-2.4)
--- NOTE | 2017-03-01 07:40 | NUR ---
RECEIVED REPORT FROM AZAEL ENCARNACION. PT IS SLEEPING IN BED BUT EASILY AWAKEN, A/OX4, AMBULATES WITH A CAN, IV IS ON THE LT FA, SALINE LOCK, PATENT, INTACT, FLUSHING WELL, SKIN IS INTACT, NO S/S OF RESPIRATORY DISTRESS OR DISCOMFORT NOTED, SAFETY/FALL PRECAUTIONS ARE IN PLACE, DISCUSSED PLAN OF CARE WITH PT, PT VERBALIZED UNDERSTANDING, CALL LIGHT IS WITHIN REACH, WILL CONTINUE TO MONITOR.
[2017-03-01 08:00] VITALS: BP 111/50
[2017-03-01] MEDS: metFORMIN 500 MG TAB PO SCH (08:51)
[2017-03-01] MEDS: ONDANSETRON 4 MG TAB PO SCH (08:52)
[2017-03-01] MEDS: CLOPIDOGREL 75 MG TAB PO SCH (08:52)
[2017-03-01] MEDS: ECOTRIN 81 MG TABEC PO SCH (08:52)
[2017-03-01] MEDS: ISOSORBIDE MONONITRATE 30 MG TABER PO SCH (08:53)
[2017-03-01] MEDS: VALSARTAN 80 MG TAB PO SCH (08:53)
[2017-03-01] MEDS: PANTOPRAZOLE 40 MG TABEC PO SCH (08:54)
[2017-03-01] MEDS: PREGABALIN 25 MG CAP PO SCH (08:54)
[2017-03-01] MEDS: POTASSIUM CHLORIDE 10 MEQ TABER PO SCH (08:54)
[2017-03-01] MEDS: LORATADINE 10 MG TAB PO SCH (08:54)
[2017-03-01] MEDS: SIMVASTATIN 20 MG TAB PO SCH (08:54)
[2017-03-01] MEDS: FUROSEMIDE 20 MG TAB PO SCH (09:00)
--- NOTE | 2017-03-01 09:00 | NUR ---
DUE MEDICATIONS WERE GIVEN, PT TOLERATED WELL, WILL CONTINUE TO MONITOR.
--- NOTE | 2017-03-01 09:30 | NUR ---
CALLED TO [place] DR. GARSIA, I WAS TOLD DR. OROZCO WAS COVERING FOR HIM AND WOULD GO AHEAD AND NOTIFY DR. OROZCO.
[2017-03-01] MEDS: PSEUDOEPHEDRINE 30 MG TAB PO SCH (09:54)
[2017-03-01] MEDS: DOCUSATE SODIUM 100 MG GELCAP PO SCH (09:54)
[2017-03-01] MEDS: RANOLAZINE 500 MG TER PO SCH (10:01)
--- NOTE | 2017-03-01 11:00 | NUR ---
PT IS RESTING IN BED, FAMILY IS AT BEDSIDE.
[2017-03-01 12:00] VITALS: BP 116/42
[2017-03-01] MEDS ORDERED: hydrALAZINE 25 MG TAB PO PRN (12:00)
--- NOTE | 2017-03-01 13:15 | NUR ---
DISCHARGE INSTRUCTIONS GIVEN, ID WRIST BAND REMOVED, IV REMOVED CATHETER TIP INTACT, PT STABLE UPON DISCHARGE.
--- NOTE | 2017-03-01 14:00 | NUR ---
PT NOTES MEDICAL CHART REVIEWED AND ATTEMPT MADE AROUND 1350 FOR PHYSICAL THERAPY, BUT UNABLE TO SEE PATIENT D/T BEING D/C FROM [facility]. PVEx1 Addendum: 03/01/17 at 1611 by Sonja Gonzalez PT PHYSICAL THERAPY CO-SIGN The Physical Therapy Progress Notes documented by Foreign Languages Professor have been reviewed. Reviewed/Co-Signed by: Sonja Gonzalez PT Documentation Done by:GODWIN STILL PTA
== END 2017-03-01 13:15 | disposition home or self-care (01) | DRG 682 ==
LOC: MED 10:29 → MTU 13:06
PROVIDERS: ADMIT Preventive Medicine Preventive Medicine/Occupational Environmental Medicine; ATTEND Preventive Medicine Preventive Medicine/Occupational Environmental Medicine
DX: N17.9 Acute kidney failure, unspecified (principal); I50.33 Acute on chronic diastolic (congestive) heart failure; R00.1 Bradycardia, unspecified; I11.0 Hypertensive heart disease with heart failure; I25.10 Atherosclerotic heart disease of native coronary artery without angina pectoris; E11.21 Type 2 diabetes mellitus with diabetic nephropathy; E11.40 Type 2 diabetes mellitus with diabetic neuropathy, unspecified; K21.9 Gastro-esophageal reflux disease without esophagitis; E78.5 Hyperlipidemia, unspecified; D64.9 Anemia, unspecified; F41.9 Anxiety disorder, unspecified; E83.39 Other disorders of phosphorus metabolism; I27.2 Other secondary pulmonary hypertension; I08.0 Rheumatic disorders of both mitral and aortic valves; K29.70 Gastritis, unspecified, without bleeding; T46.5X5A Adverse effect of other antihypertensive drugs, initial encounter; Z96.653 Presence of artificial knee joint, bilateral; Z79.899 Other long term (current) drug therapy; Z86.73 Personal history of transient ischemic attack (TIA), and cerebral infarction without residual deficits; Y92.89 Other specified places as the place of occurrence of the external cause
CPT/HCPCS: 36415; 71010; 76770; 80048; 80053; 82550; 82553; 82948; 83735; 83880; 84100; 84484; 85025; 85610; 85730; 87081; 93005; 96374; 97110; 99291; J0461; J2405; Q0092; Q0162

== ENCOUNTER 2017-04-06 12:02 | Emergency (ER) | payer OTHER ==
[~2017-04-06] VITALS: Ht 144.8 cm; Wt 108.0 kg
[~2017-04-06 12:02] MED LIST changes: -ACET-2863 PO; +ALUMINUM HYD/MAG/SIMETHICONE 30 ML UDC PO ONE; -ASPI-1081 PO; -CLON0.1T42 PO; -CLON0.2T15 PO; -FURO20TA8 PO; -ISOS60TE3 PO; +LIDOCAINE VISCOUS 2% 20 ML UDC PO ONE; -METF500T PO; +OMEP20TC10 PO; -RANI-287 PO; -SIMV20TA6 PO; -[UNRECOGNIZED DRUG - CODE] PO
--- NOTE | 2017-04-06 12:13 | NUR ---
Patient taken from ED lobby to XRAY via wheelchair by tech.
[2017-04-06 12:28] VITALS: BP 149/59
--- NOTE | 2017-04-06 12:32 | NUR ---
LABS DRAWN IN TRIAGE
[2017-04-06 12:34] LABS: BASOPHILS # (AUTO) 0.2 K/uL (0.00-0.22); BASOPHILS % (AUTO) 2.7 % (0.0-2.0); EOSINOPHILS # (AUTO) 0.2 K/uL (0-0.4); EOSINOPHILS % (AUTO) 1.9 % (0.0-4.0); HEMATOCRIT 35.1 % (36-48); HEMOGLOBIN 11.3 g/dL (12.0-16.0); LYMPHOCYTES # (AUTO) 1.9 K/uL (2.5-16.5); LYMPHOCYTES % (AUTO) 21.8 % (20.5-51.1); MEAN CORPUSCULAR HEMOGLOBIN 27 pg (27-31); MEAN CORPUSCULAR HGB CONC 32 g/dL (33-37); MEAN CORPUSCULAR VOLUME 85 fL (80-94); MONOCYTES # (AUTO) 0.3 K/uL (0.8-1.0); MONOCYTES % (AUTO) 3.9 % (1.7-9.3); NEUTROPHILS % (AUTO) 69.7 % (42.2-75.2); PLATELET COUNT (AUTO) 292 K/uL (140-450); RED BLOOD CELL COUNT(AUTO) 4.14 MIL/uL (4.20-5.40); RED CELL DISTRIBUTION WIDTH 13.3 % (11.6-13.7); WHITE BLOOD COUNT (AUTO) 8.6 K/uL (4.8-10.8)
[2017-04-06] MEDS ORDERED: ASPIRIN 81 MG TAB.CHEW PO ONE (12:35)
--- NOTE | 2017-04-06 12:40 | NUR ---
PATIENT PRESENTS TO ED WITH C/O HEADACHE X 3 DAYS--CHEST PAIN LEFT SIDED RADIATING LEFT SHOULDER AND EPIGASTRIC PAIN X YESTERDAY WITH MILD SOB---NO PEDAL EDEMA NOTED HX----HTN, DM, CAD RX---- DENIES N/V/D; SKIN IS PINK/WARM/DRY; AAOX4 WITH EVEN AND STEADY GAIT; LUNGS CLEAR BL; HR EVEN AND REGULAR; PT DENIES ANY FEVER, CP, SOB, OR COUGH AT THIS TIME; PATIENT STATES PAIN OF 8/10 AT THIS TIME; VSS; PATIENT POSITIONED FOR COMFORT; HOB ELEVATED; BEDRAILS UP X2; BED DOWN. ER MD MADE AWARE OF PT STATUS.
[2017-04-06 12:56] LABS: ANION GAP 10.6 (8-16); CALCIUM 8.3 mg/dL (8.5-10.1); CARBON DIOXIDE 28.8 mmol/L (21-32); CHLORIDE 96 mmol/L (98-107); CREATININE 0.9 mg/dL (0.6-1.3); GLUCOSE 139 mg/dL (74-106); POTASSIUM 4.4 mmol/L (3.5-5.1); SODIUM SERUM 131 mmol/L (136-145); UREA NITROGEN, BLOOD 15 mg/dL (7-18)
[2017-04-06 12:59] LABS: PARTIAL THROMBOPLASTIN TIME 28.2 secs (22-35.6); PROTHROMBIN TIME 9.8 secs (10.8-13.4)
[2017-04-06 13:28] LABS: ALANINE AMINOTRANSFERASE 11 U/L (14-59); ALBUMIN 3.3 g/dL (3.4-5.0); ALKALINE PHOSPHATASE 122 U/L (46-116); ASPARTATE AMINOTRANSFERASE 14 U/L (15-37); TOTAL BILIRUBIN 0.3 mg/dL (0.0-1.0)
[2017-04-06 13:30] LABS: AMYLASE 26 U/L (25-115); LIPASE 73 U/L (73-393)
[2017-04-06] MEDS ORDERED: MORPHINE SULFATE 4 MG/ML SYR IVP ONE (13:30)
[2017-04-06 14:12] LABS: APPEARANCE,URINE CLEAR (CLEAR); BILIRUBIN,URINE NEGATIVE (NEGATIVE); BLOOD, URINE NEGATIVE (NEGATIVE); COLOR,URINE YELLOW (YELLOW); LEUKOCYTE ESTERASE ,URINE TRACE (NEGATIVE); NITRITE, URINE NEGATIVE (NEGATIVE); PROTEIN,URINE NEGATIVE (NEGATIVE); UGLUCOSE NEGATIVE (NEGATIVE); UROBILINOGEN,URINE 0.2 EU/dL (0.2 - 1)
[2017-04-06 14:25] LABS: BACTERIA,URINE 1-9 (FEW) /HPF (None Seen); SQUAMOUS EPITHELIAL CELL,UR FEW /LPF (0-3 (FEW))
--- NOTE | 2017-04-06 14:58 | NUR ---
PT RESTING COMFORTABLY, STILL C/O ABDOMINAL PAIN, DAUGHTER CASSANDRA AND DR ROSARIO NOTIFIED AT BEDSIDE, AWAITING ORDERS, WILL CONTINUE TO MONITOR
[2017-04-06] MEDS ORDERED: FAMOTIDINE 20 MG/2 ML VIAL IVP ONE (15:05)
[2017-04-06] MEDS ORDERED: DICYCLOMINE HCL LIQUID 10 MG/5 ML UDC PO ONE (16:45)
[2017-04-06] MEDS ORDERED: ALUMINUM HYD/MAG/SIMETHICONE 30 ML UDC ONE (16:55)
[2017-04-06 17:10] VITALS: BP 121/51
--- NOTE | 2017-04-06 17:10 | NUR ---
Patient discharged with v/s stable. Written and verbal after care instructions given and explained. Patient alert, oriented and verbalized understanding of instructions. Ambulatory with steady gait. All questions addressed prior to discharge. ID band removed. Patient advised to follow up with PMD. Rx of RANITIDINE, BENTYL given. Patient educated on indication of medication including possible reaction and side effects. Opportunity to ask questions provided and answered.
== END 2017-04-06 17:10 | disposition home or self-care (01) ==
LOC: MED 12:02
DX: K21.9 Gastro-esophageal reflux disease without esophagitis (principal); R51 Headache; I25.10 Atherosclerotic heart disease of native coronary artery without angina pectoris; M19.90 Unspecified osteoarthritis, unspecified site; I50.9 Heart failure, unspecified; E11.9 Type 2 diabetes mellitus without complications
CPT/HCPCS: 36415; 71010; 80053; 81001; 82150; 82553; 83690; 83880; 84484; 85025; 85610; 85730; 93005; 96374; 96375; 99285; J2270; J3490

== ENCOUNTER 2017-07-07 13:30 | Emergency (ER) | payer OTHER ==
[~2017-07-07] VITALS: Ht 143.5 cm; Wt 107.5 kg
[~2017-07-07 13:30] MED LIST changes: +ACET-9529 PO; -ALUMINUM HYD/MAG/SIMETHICONE 30 ML UDC PO ONE; +ARMO150T2 PO; +CLON0.2T43 PO; +CLOP75TA26 PO; -CLOP75TA5 PO; +DOCU-299 PO; -DOCU-67 PO; -LIDOCAINE VISCOUS 2% 20 ML UDC PO ONE; -ONDA4TAB PO; +ONDA4TAB40 PO; -POTA10TA10 PO; +POTA10TE30 PO; -[UNRECOGNIZED DRUG - CODE] PO
[2017-07-07 13:36] VITALS: BP 153/71
--- NOTE | 2017-07-07 14:31 | NUR ---
Patient ambulated to bed 5. RN evaluating patient at bedside.
--- NOTE | 2017-07-07 14:34 | NUR ---
76F BIB FAMILY C/O EPIGASTRIC PAIN YESTERDAY WITH HEADACHE X 1 WEEK. PAIN 8/10 ACHING NON-RADIATING. PT STATES SHE HAS HX: GASTRITIS, HTN, DM. AAOx4, PERRLA, BREATHING EVEN AND UNLABORED. ERMD NOTIFIED OF PATIENT STATUS.
--- NOTE | 2017-07-07 15:26 | NUR ---
Patient returned from CT scan. RN re-evaluating patient at bedside.
[2017-07-07] MEDS ORDERED: ALUMINUM HYD/MAG/SIMETHICONE 30 ML UDC PO ONE (15:50)
[2017-07-07] MEDS ORDERED: LIDOCAINE VISCOUS 2% 20 ML UDC PO ONE (15:50)
[2017-07-07] MEDS ORDERED: DICYCLOMINE HCL LIQUID 10 MG/5 ML UDC PO ONE (15:50)
[2017-07-07 15:53] LABS: BASOPHILS # (AUTO) 0.3 K/uL (0.00-0.22); BASOPHILS % (AUTO) 3.2 % (0.0-2.0); EOSINOPHILS # (AUTO) 0.1 K/uL (0-0.4); EOSINOPHILS % (AUTO) 0.6 % (0.0-4.0); HEMATOCRIT 36.2 % (36-48); HEMOGLOBIN 11.7 g/dL (12.0-16.0); LYMPHOCYTES % (AUTO) 9.8 % (20.5-51.1); MEAN CORPUSCULAR HEMOGLOBIN 27 pg (27-31); MEAN CORPUSCULAR HGB CONC 32 g/dL (33-37); MEAN CORPUSCULAR VOLUME 83 fL (80-94); MONOCYTES # (AUTO) 0.2 K/uL (0.8-1.0); MONOCYTES % (AUTO) 1.8 % (1.7-9.3); NEUTROPHILS # (AUTO) 8.8 K/uL (1.8-7.7); NEUTROPHILS % (AUTO) 84.6 % (42.2-75.2); PLATELET COUNT (AUTO) 331 K/uL (140-450); RED BLOOD CELL COUNT(AUTO) 4.35 MIL/uL (4.20-5.40); RED CELL DISTRIBUTION WIDTH 14.6 % (11.6-13.7); WHITE BLOOD COUNT (AUTO) 10.4 K/uL (4.8-10.8)
[2017-07-07 16:05] LABS: ANION GAP 10.8 (8-16); CHLORIDE 100 mmol/L (98-107); CREATININE 0.7 mg/dL (0.6-1.3); GLUCOSE 132 mg/dL (74-106); POTASSIUM 4.8 mmol/L (3.5-5.1); SODIUM SERUM 139 mmol/L (136-145); UREA NITROGEN, BLOOD 10 mg/dL (7-18)
[2017-07-07 16:12] LABS: ALBUMIN 3.5 g/dL (3.4-5.0); ASPARTATE AMINOTRANSFERASE 15 U/L (15-37); LIPASE 68 U/L (73-393); TOTAL BILIRUBIN 0.4 mg/dL (0.0-1.0)
--- NOTE | 2017-07-07 16:39 | NUR ---
PT RESTING; FAMILY AT BEDSIDE; VSS; PATIENT POSITIONED FOR COMFORT; HOB ELEVATED; BEDRAILS UP X2; BED DOWN. ER MD MADE AWARE OF PT STATUS.
[2017-07-07 17:06] VITALS: BP 132/78
--- NOTE | 2017-07-07 17:06 | NUR ---
Patient discharged with v/s stable. Written and verbal after care instructions given and explained. Patient alert, oriented and verbalized understanding of instructions. Ambulatory with steady gait. All questions addressed prior to discharge. ID band removed. Patient advised to follow up with PMD. Rx of ZOFRAN ODT 4MG given. Patient educated on indication of medication including possible reaction and side effects. Opportunity to ask questions provided and answered.
== END 2017-07-07 17:06 | disposition home or self-care (01) ==
LOC: MED 13:30
DX: K29.70 Gastritis, unspecified, without bleeding (principal); I11.0 Hypertensive heart disease with heart failure; I50.9 Heart failure, unspecified; E11.9 Type 2 diabetes mellitus without complications; K21.9 Gastro-esophageal reflux disease without esophagitis
CPT/HCPCS: 36415; 80053; 81002; 81025; 82948; 83690; 85025; 99285

== ENCOUNTER 2017-08-26 17:17 | Emergency (ER) | payer OTHER ==
[~2017-08-26] VITALS: Ht 147.3 cm; Wt 107.6 kg
[2017-08-26 17:56] VITALS: BP 156/71
--- NOTE | 2017-08-26 19:35 | NUR ---
PT TAKEN TO BED 2
--- NOTE | 2017-08-26 19:40 | NUR ---
PATIENT PRESENTS TO ED WITH C/O NAUSEA AND HEADACHE . PT STATES SKIN IS PINK/WARM/DRY; AAOX4 WITH EVEN AND STEADY GAIT; LUNGS CLEAR BL; HR EVEN AND REGULAR; PT DENIES ANY FEVER, CP, SOB, OR COUGH AT THIS TIME; PATIENT STATES PAIN OF 9/10 AT THIS TIME; VSS; PATIENT POSITIONED FOR COMFORT; HOB ELEVATED; BEDRAILS UP X2; BED DOWN. ER MD MADE AWARE OF PT STATUS.
[2017-08-26] MEDS: NACL 0.9% 1,000 ML IV ONE (20:08)
[2017-08-26] MEDS: KETOROLAC 30 MG/ML VIAL IVP ONE (20:09)
[2017-08-26] MEDS: PANTOPRAZOLE 40 MG INJ VIAL IVP ONE (20:09)
[2017-08-26] MEDS: ONDANSETRON 4 MG/2 ML VIAL IVP ONE (20:10)
[2017-08-26 20:20] LABS: BASOPHILS # (AUTO) 0.5 K/uL (0.00-0.22); EOSINOPHILS # (AUTO) 0.1 K/uL (0-0.4); HEMATOCRIT 35.5 % (36-48); HEMOGLOBIN 11.5 g/dL (12.0-16.0); LYMPHOCYTES # (AUTO) 2.4 K/uL (2.5-16.5); MEAN CORPUSCULAR HEMOGLOBIN 27 pg (27-31); MEAN CORPUSCULAR HGB CONC 32 g/dL (33-37); MEAN CORPUSCULAR VOLUME 83 fL (80-94); MONOCYTES # (AUTO) 0.7 K/uL (0.8-1.0); NEUTROPHILS # (AUTO) 8.2 K/uL (1.8-7.7); PLATELET COUNT (AUTO) 323 K/uL (140-450); RED CELL DISTRIBUTION WIDTH 14.6 % (11.6-13.7); WHITE BLOOD COUNT (AUTO) 11.9 K/uL (4.8-10.8)
[2017-08-26 20:39] LABS: PROTHROMBIN TIME 10.2 secs (10.8-13.4)
[2017-08-26 20:52] LABS: ANION GAP 10.2 (8-16); CHLORIDE 102 mmol/L (98-107); CREATININE 0.7 mg/dL (0.6-1.3); GLUCOSE 109 mg/dL (74-106); POTASSIUM 4.2 mmol/L (3.5-5.1); SODIUM SERUM 139 mmol/L (136-145); TOTAL BILIRUBIN 0.4 mg/dL (0.0-1.0); UREA NITROGEN, BLOOD 10 mg/dL (7-18)
[2017-08-26 20:53] LABS: ALBUMIN 3.2 g/dL (3.4-5.0); ASPARTATE AMINOTRANSFERASE 14 U/L (15-37)
[2017-08-26] MEDS: DICYCLOMINE HCL LIQUID 10 MG/5 ML UDC PO ONE (22:04)
[2017-08-26] MEDS: ALUMINUM HYD/MAG/SIMETHICONE 30 ML UDC PO ONE (22:04)
[2017-08-26] MEDS: LIDOCAINE VISCOUS 2% 20 ML UDC PO ONE (22:05)
[2017-08-26 22:15] VITALS: BP 152/71
--- NOTE | 2017-08-26 22:16 | NUR ---
Patient discharged with v/s stable. Written and verbal after care instructions given and explained. Patient verbalized understanding. Ambulatory with steady gait. All questions addressed prior to discharge. Advised to follow up with PMD.
== END 2017-08-26 22:16 | disposition home or self-care (01) ==
LOC: MED 17:17
DX: K29.70 Gastritis, unspecified, without bleeding (principal); K21.9 Gastro-esophageal reflux disease without esophagitis; I11.0 Hypertensive heart disease with heart failure
CPT/HCPCS: 36415; 71010; 80053; 84484; 85025; 85610; 85730; 93005; 96361; 96374; 96375; 99285; C9113; J1885; J2405; J7030; Q0092

== ENCOUNTER 2017-11-12 12:29 | Inpatient (IN) | payer OTHER ==
[~2017-11-12] VITALS: Ht 147.3 cm; Wt 110.3 kg
[2017-11-12 12:30] VITALS: BP 154/65
[2017-11-12] MEDS ORDERED: NITROGLYCERIN 2% 1 GM PKT TP ONE (13:15)
[2017-11-12] MEDS ORDERED: MORPHINE SULFATE 4 MG/ML SYR IVP ONE (13:15)
[2017-11-12] MEDS ORDERED: ASPIRIN 81 MG TAB.CHEW PO ONE (13:15)
[2017-11-12 13:55] LABS: HEMATOCRIT 31.1 % (36-48); HEMOGLOBIN 10.2 g/dL (12.0-16.0); MEAN CORPUSCULAR HEMOGLOBIN 27 pg (27-31); MEAN CORPUSCULAR HGB CONC 33 g/dL (33-37); MEAN CORPUSCULAR VOLUME 81 fL (80-94); PLATELET COUNT (AUTO) 295 K/uL (140-450); RED BLOOD CELL COUNT(AUTO) 3.84 MIL/uL (4.20-5.40); WHITE BLOOD COUNT (AUTO) 9.8 K/uL (4.8-10.8)
[2017-11-12 14:09] LABS: ANION GAP 11.5 (8-16); CARBON DIOXIDE 30.1 mmol/L (21-32); CHLORIDE 99 mmol/L (98-107); CREATININE 0.7 mg/dL (0.6-1.3); GLUCOSE 129 mg/dL (74-106); POTASSIUM 4.6 mmol/L (3.5-5.1); SODIUM SERUM 136 mmol/L (136-145); UREA NITROGEN, BLOOD 13 mg/dL (7-18)
[2017-11-12 14:16] LABS: ALBUMIN 3.2 g/dL (3.4-5.0); ASPARTATE AMINOTRANSFERASE 12 U/L (15-37); CHOL/HDL RATIO 1.8 (1-4.5); TOTAL BILIRUBIN 0.4 mg/dL (0.0-1.0)
[2017-11-12 14:17] LABS: LYMPHOCYTES % (MANUAL) 13 % (20-46); MONOCYTES % (MANUAL) 4 % (5-12)
[2017-11-12 14:32] LABS: CREATINE KINASE MB 0.6 ng/mL (0-3.6)
[2017-11-12] MEDS ORDERED: HYDROcodone/APAP 7.5/325 MG 1 TAB PO PRN (15:50)
[2017-11-12] MEDS ORDERED: ACETAMINOPHEN 325 MG TAB PO PRN (15:50)
[2017-11-12 16:40] LABS: CHOL/HDL RATIO 1.8 (1-4.5); FREE T4 (FREE THYROXINE) 1.06 ng/dL (0.76-1.46); MAGNESIUM 2.1 mg/dL (1.8-2.4); PHOSPHORUS 2.9 mg/dL (2.5-4.9); THYROID STIMULATING HORMONE 0.52 uIU/mL (0.34-3.74)
[2017-11-12 17:29] VITALS: BP 147/47
[2017-11-12] MEDS ORDERED: DOL10 PO (18:18)
[2017-11-12] MEDS ORDERED: ATOR40TA40 PO (18:18)
[2017-11-12] MEDS ORDERED: ACET-787 PO (18:18)
[2017-11-12] MEDS ORDERED: PAX20 PO (18:18)
[2017-11-12] MEDS ORDERED: AMLO10TA2 PO (18:18)
[2017-11-12] MEDS ORDERED: OMEP20TC12 PO (18:18)
[2017-11-12] MEDS ORDERED: PREG100C PO ×2 (18:28)
[2017-11-12] MEDS ORDERED: ISOS20TA13 PO (18:28)
[2017-11-12] MEDS ORDERED: NITROGLYCERIN 0.4 MG TAB SL PRN (18:30)
[2017-11-12] MEDS: NACL 0.9% 1,000 ML IV SCH (18:59)
[2017-11-12 20:00] VITALS: BP 151/48
[2017-11-12] MEDS ORDERED: NON-FORMULARY ITEM (Omeprazole (Omeprazole) 40 MG) PO SCH (21:00)
[2017-11-12 21:41] LABS: PROTHROMBIN TIME 9.7 secs (10.8-13.4)
[2017-11-12] MEDS: DOCUSATE SODIUM 100 MG GELCAP PO SCH (21:41)
[2017-11-12] MEDS: METHADONE 10 MG TAB PO SCH (21:42)
[2017-11-12] MEDS: METOPROLOL 25 MG TAB PO SCH (21:43)
[2017-11-12] MEDS: ISOSORBIDE DINITRATE 20 MG TAB PO SCH (21:43)
[2017-11-12] MEDS ORDERED: INSULIN LISPRO SLIDING SCALE 100 UNITS/ML VIAL SUBQ PRN (22:00)
[2017-11-12] MEDS ORDERED: DEXTROSE 50% 50 ML SYR IVP PRN (22:00)
[2017-11-12] MEDS: HYDROcodone/APAP 10/325 MG 1 TAB TAB PO PRN (22:48)
[2017-11-13] VITALS: BP 108/45
[2017-11-13 04:00] VITALS: BP 147/54
[2017-11-13] MEDS: ONDANSETRON 4 MG/2 ML VIAL IVP PRN ×2 (05:03→09:16)
[2017-11-13 06:30] LABS: WHITE BLOOD COUNT (AUTO) 7.8 K/uL (4.8-10.8)
[2017-11-13] MEDS: BLOOD GLUCOSE MONITORING 1 DEV DEV FS SCH ×4 (06:30→21:09)
[2017-11-13 06:31] LABS: HEMATOCRIT 29.8 % (36-48); HEMOGLOBIN 9.5 g/dL (12.0-16.0); MEAN CORPUSCULAR HEMOGLOBIN 26 pg (27-31); MEAN CORPUSCULAR HGB CONC 32 g/dL (33-37); MEAN CORPUSCULAR VOLUME 81 fL (80-94); PLATELET COUNT (AUTO) 271 K/uL (140-450); RED BLOOD CELL COUNT(AUTO) 3.68 MIL/uL (4.20-5.40); RED CELL DISTRIBUTION WIDTH 15.5 % (11.6-13.7)
[2017-11-13] MEDS: PANTOPRAZOLE 40 MG TABEC PO SCH (06:31)
[2017-11-13 06:32] LABS: BASOPHILS % (AUTO) 0.5 % (0.0-2.0); EOSINOPHILS # (AUTO) 0.1 K/uL (0-0.4); EOSINOPHILS % (AUTO) 1.8 % (0.0-4.0); LYMPHOCYTES # (AUTO) 2.3 K/uL (2.5-16.5); LYMPHOCYTES % (AUTO) 28.7 % (20.5-51.1); MONOCYTES # (AUTO) 0.7 K/uL (0.8-1.0); MONOCYTES % (AUTO) 8.4 % (1.7-9.3); NEUTROPHILS # (AUTO) 4.8 K/uL (1.8-7.7); NEUTROPHILS % (AUTO) 60.6 % (42.2-75.2)
[2017-11-13 06:50] LABS: MAGNESIUM 2.1 mg/dL (1.8-2.4); PHOSPHORUS 3.2 mg/dL (2.5-4.9)
[2017-11-13 07:23] LABS: ANION GAP 11.8 (8-16); CARBON DIOXIDE 29.2 mmol/L (21-32); CHLORIDE 103 mmol/L (98-107); CREATININE 0.7 mg/dL (0.6-1.3); GLUCOSE 120 mg/dL (74-106); SODIUM SERUM 140 mmol/L (136-145); UREA NITROGEN, BLOOD 10 mg/dL (7-18)
[2017-11-13 08:00] VITALS: BP 163/56
[2017-11-13] MEDS: metFORMIN 500 MG TAB PO SCH ×3 (08:00→17:00)
[2017-11-13] MEDS ORDERED: NON-FORMULARY ITEM (Amlodipine Besylate 10 MG) PO SCH (09:00)
[2017-11-13] MEDS ORDERED: NON-FORMULARY ITEM (Atorvastatin Calcium 40 MG) PO SCH (09:00)
[2017-11-13] MEDS: METHADONE 10 MG TAB PO SCH ×2 (09:19→21:11)
[2017-11-13] MEDS: LORazepam 0.5 MG TAB PO SCH ×3 (09:19→17:54)
[2017-11-13] MEDS: LISINOPRIL 5 MG TAB PO SCH (09:19)
[2017-11-13] MEDS: PREGABALIN 50 MG CAP PO SCH (09:20)
[2017-11-13] MEDS: ATORVASTATIN 20 MG TAB PO SCH (09:20)
[2017-11-13] MEDS: ECOTRIN 81 MG TABEC PO SCH (09:20)
[2017-11-13] MEDS: DOCUSATE SODIUM 100 MG GELCAP PO SCH ×2 (09:20→21:10)
[2017-11-13] MEDS: PARoxetine 20 MG TAB PO SCH (09:20)
[2017-11-13] MEDS: amLODIPine 5 MG TAB PO SCH (09:21)
[2017-11-13] MEDS: FUROSEMIDE 20 MG TAB PO SCH (09:21)
[2017-11-13] MEDS: POTASSIUM CHLORIDE 10 MEQ TABER PO SCH (09:21)
[2017-11-13] MEDS: ISOSORBIDE DINITRATE 20 MG TAB PO SCH ×2 (09:22→21:11)
[2017-11-13] MEDS: METOPROLOL 25 MG TAB PO SCH ×3 (09:22→21:10)
[2017-11-13] MEDS: VALSARTAN 80 MG TAB PO SCH (09:25)
[2017-11-13] MEDS ORDERED: DICYCLOMINE HCL LIQUID 10 MG/5 ML UDC PO SCH (09:30)
[2017-11-13] MEDS ORDERED: ALUMINUM HYD/MAG/SIMETHICONE 30 ML UDC PO SCH (09:30)
[2017-11-13] MEDS ORDERED: LIDOCAINE VISCOUS 2% 20 ML UDC PO SCH (09:30)
[2017-11-13] MEDS: HYDROcodone/APAP 10/325 MG 1 TAB TAB PO PRN (10:08)
[2017-11-13 12:00] VITALS: BP 134/48
[2017-11-13] MEDS ORDERED: METHOCARBAMOL 500 MG TAB PO SCH (15:00)
[2017-11-13 16:00] VITALS: BP 130/42
[2017-11-13] MEDS ORDERED: PREGABALIN 50 MG CAP PO SCH (17:00)
[2017-11-13] MEDS: NACL 0.9% 1,000 ML IV SCH (17:02)
[2017-11-13] MEDS: METHOCARBAMOL 500 MG TAB PO SCH ×2 (17:54→21:10)
[2017-11-13 20:00] VITALS: BP 132/84
[2017-11-14] VITALS: BP 134/45
[2017-11-14 04:00] VITALS: BP 141/53
[2017-11-14] MEDS: PANTOPRAZOLE 40 MG TABEC PO SCH (05:39)
[2017-11-14 06:16] LABS: BASOPHILS # (AUTO) 0.3 K/uL (0.00-0.22); BASOPHILS % (AUTO) 3.1 % (0.0-2.0); EOSINOPHILS # (AUTO) 0.3 K/uL (0-0.4); EOSINOPHILS % (AUTO) 3.7 % (0.0-4.0); HEMATOCRIT 29.5 % (36-48); HEMOGLOBIN 9.3 g/dL (12.0-16.0); LYMPHOCYTES # (AUTO) 3.1 K/uL (2.5-16.5); LYMPHOCYTES % (AUTO) 37.2 % (20.5-51.1); MEAN CORPUSCULAR HEMOGLOBIN 26 pg (27-31); MEAN CORPUSCULAR HGB CONC 32 g/dL (33-37); MEAN CORPUSCULAR VOLUME 82 fL (80-94); MONOCYTES # (AUTO) 0.7 K/uL (0.8-1.0); MONOCYTES % (AUTO) 8.6 % (1.7-9.3); NEUTROPHILS % (AUTO) 47.4 % (42.2-75.2); PLATELET COUNT (AUTO) 291 K/uL (140-450); RED CELL DISTRIBUTION WIDTH 14.6 % (11.6-13.7); WHITE BLOOD COUNT (AUTO) 8.4 K/uL (4.8-10.8)
[2017-11-14 06:30] LABS: ANION GAP 10.2 (8-16); CHLORIDE 102 mmol/L (98-107); CREATININE 0.8 mg/dL (0.6-1.3); GLUCOSE 89 mg/dL (74-106); POTASSIUM 4.2 mmol/L (3.5-5.1); SODIUM SERUM 137 mmol/L (136-145); UREA NITROGEN, BLOOD 13 mg/dL (7-18)
[2017-11-14] MEDS: BLOOD GLUCOSE MONITORING 1 DEV DEV FS SCH ×2 (06:30→11:30)
[2017-11-14 06:35] LABS: MAGNESIUM 2.1 mg/dL (1.8-2.4); PHOSPHORUS 4.1 mg/dL (2.5-4.9)
[2017-11-14] MEDS: NACL 0.9% 1,000 ML IV SCH (07:15)
[2017-11-14 08:00] VITALS: BP 159/56
[2017-11-14] MEDS: metFORMIN 500 MG TAB PO SCH ×2 (08:00→12:00)
[2017-11-14] MEDS ORDERED: PANT40EC28 PO (08:44)
[2017-11-14] MEDS: METOPROLOL 25 MG TAB PO SCH (09:00)
[2017-11-14] MEDS: ISOSORBIDE DINITRATE 20 MG TAB PO SCH (09:00)
[2017-11-14] MEDS: DOCUSATE SODIUM 100 MG GELCAP PO SCH (09:25)
[2017-11-14] MEDS: PARoxetine 20 MG TAB PO SCH (09:26)
[2017-11-14] MEDS: amLODIPine 5 MG TAB PO SCH (09:27)
[2017-11-14] MEDS: ATORVASTATIN 20 MG TAB PO SCH (09:28)
[2017-11-14] MEDS: ECOTRIN 81 MG TABEC PO SCH (09:28)
[2017-11-14] MEDS: LISINOPRIL 5 MG TAB PO SCH (09:28)
[2017-11-14] MEDS: POTASSIUM CHLORIDE 10 MEQ TABER PO SCH (09:29)
[2017-11-14] MEDS: PREGABALIN 50 MG CAP PO SCH (09:29)
[2017-11-14] MEDS: METHADONE 10 MG TAB PO SCH (09:30)
[2017-11-14] MEDS: METHOCARBAMOL 500 MG TAB PO SCH ×2 (09:31→12:54)
[2017-11-14] MEDS: LORazepam 0.5 MG TAB PO SCH ×2 (09:31→12:54)
[2017-11-14] MEDS: VALSARTAN 80 MG TAB PO SCH (09:31)
[2017-11-14] MEDS: FUROSEMIDE 20 MG TAB PO SCH (09:32)
[2017-11-14] MEDS: HYDROcodone/APAP 10/325 MG 1 TAB TAB PO PRN (09:38)
[2017-11-14 12:00] VITALS: BP 155/45
[2017-11-14] MEDS ORDERED: METH500T18 PO (14:07)
== END 2017-11-14 16:15 | disposition home or self-care (01) | DRG 391 ==
LOC: MED 12:29 → MTU 15:51
PROVIDERS: ADMIT Family Medicine; ATTEND Family Medicine
DX: K21.9 Gastro-esophageal reflux disease without esophagitis (principal); E43 Unspecified severe protein-calorie malnutrition; D68.59 Other primary thrombophilia; E11.51 Type 2 diabetes mellitus with diabetic peripheral angiopathy without gangrene; I24.9 Acute ischemic heart disease, unspecified; E66.01 Morbid (severe) obesity due to excess calories; I50.9 Heart failure, unspecified; I11.0 Hypertensive heart disease with heart failure; Z68.41 Body mass index [BMI] 40.0-44.9, adult; Z99.81 Dependence on supplemental oxygen; F32.9 Major depressive disorder, single episode, unspecified; I25.10 Atherosclerotic heart disease of native coronary artery without angina pectoris; M19.90 Unspecified osteoarthritis, unspecified site; Z98.84 Bariatric surgery status; Z89.512 Acquired absence of left leg below knee; Z84.89 Family history of other specified conditions; Z89.511 Acquired absence of right leg below knee; Z90.49 Acquired absence of other specified parts of digestive tract; Z90.710 Acquired absence of both cervix and uterus; Z82.49 Family history of ischemic heart disease and other diseases of the circulatory system; Z95.5 Presence of coronary angioplasty implant and graft
CPT/HCPCS: 36415; 71045; 80048; 80053; 82150; 82550; 82553; 82948; 83036; 83690; 83735; 83880; 84100; 84439; 84443; 84484; 85025; 85610; 85730; 87081; 93005; 93925; 93970; 96374; 99285; J1815; J2270; J2405; J7030; Q0092

== ENCOUNTER 2017-12-05 10:13 | Emergency (ER) | payer OTHER ==
[~2017-12-05] VITALS: Ht 144.8 cm; Wt 108.5 kg
[~2017-12-05 10:13] MED LIST changes: +ACET-787 PO; -ACET-9529 PO; +AMLO10TA2 PO; -ARMO150T2 PO; +ATOR40TA40 PO; -CLON0.2T43 PO; -CLOP75TA26 PO; -DOCU-299 PO; +DOL10 PO; -HYDR-318 PO; +ISOS20TA13 PO; -ISOS60TE PO; -LORA10TA19 PO; -LYR75 PO; +METH500T18 PO; -OMEP20TC10 PO; -ONDA4TAB40 PO; +PANT40EC28 PO; +PAX20 PO; +PREG100C PO; -PREG150C PO; -RANEX500 PO; -RANI150C PO; -SIMV20TA1 PO; -SUD30 PO
[2017-12-05 10:17] VITALS: BP 149/66
--- NOTE | 2017-12-05 10:27 | NUR ---
PT AMBULATED TO BED 3
--- NOTE | 2017-12-05 10:39 | NUR ---
DR LEY EVALUATING AT BEDSIDE
[2017-12-05] MEDS ORDERED: DICYCLOMINE HCL LIQUID 20 MG, ALUMINUM HYD/MAG/SIMETHICONE 30 ML, LIDOCAINE VISCOUS 2% ... PO ONE ×3 (10:45)
[2017-12-05] MEDS ORDERED: ONDANSETRON 4 MG ODT PO ONE (10:45)
[2017-12-05] MEDS ORDERED: PANTOPRAZOLE 40 MG TABEC PO ONE (10:45)
--- NOTE | 2017-12-05 10:53 | NUR ---
77F BIB FAMILY C/O EPIGASTRIC PAIN X 3 DAYS. PT SITTING UP IN BED, REPORTS BURNING SENSATION TO EPIGATRIC AREA AND GERD AFTER EATING SPICY FOOD. DENIES ANY NEW MEDS/RXS. ABD LARGE, SOFT. VERBALIZES NAUSEA AND VOMITTING X2 LAST NIGHT. PT DENIES SOB OR CP. DEBIES FEVERS/DYSURIA/DIARRHEA. HX: GASTRITIS, HTN, DM, ARTHRITIS
[2017-12-05 11:13] LABS: HEMATOCRIT 33.3 % (36-48); HEMOGLOBIN 10.7 g/dL (12.0-16.0); MEAN CORPUSCULAR HEMOGLOBIN 26 pg (27-31); MEAN CORPUSCULAR HGB CONC 32 g/dL (33-37); MEAN CORPUSCULAR VOLUME 80 fL (80-94); PLATELET COUNT (AUTO) 307 K/uL (140-450); RED BLOOD CELL COUNT(AUTO) 4.15 MIL/uL (4.20-5.40); RED CELL DISTRIBUTION WIDTH 15.8 % (11.6-13.7); WHITE BLOOD COUNT (AUTO) 8.2 K/uL (4.8-10.8)
[2017-12-05 11:23] LABS: LYMPHOCYTES % (MANUAL) 20 % (20-46); MONOCYTES % (MANUAL) 5 % (5-12)
[2017-12-05 11:25] LABS: ANION GAP 10.7 (8-16); CARBON DIOXIDE 30.6 mmol/L (21-32); CHLORIDE 102 mmol/L (98-107); CREATININE 0.7 mg/dL (0.6-1.3); GLUCOSE 147 mg/dL (74-106); POTASSIUM 4.3 mmol/L (3.5-5.1); SODIUM SERUM 139 mmol/L (136-145); UREA NITROGEN, BLOOD 9 mg/dL (7-18)
[2017-12-05 11:30] LABS: ALBUMIN 3.3 g/dL (3.4-5.0); ASPARTATE AMINOTRANSFERASE 13 U/L (15-37); LIPASE 59 U/L (73-393); TOTAL BILIRUBIN 0.3 mg/dL (0.0-1.0)
--- NOTE | 2017-12-05 11:59 | NUR ---
Patient discharged with v/s stable. Written and verbal after care instructions given and explained. Patient verbalized understanding. Ambulatory with by caregiver. All questions addressed prior to discharge. Advised to follow up with PMD.
--- NOTE | 2017-12-05 12:15 | NUR ---
LATE ENTRY PER DR LEY , OK TO DISCHARGE WITH BP 148/50.PT ASYMPTOMATIC, DENIES DIZZINESS. STABLE GAIT NOTED WITH CANE, LEFT WITH DTR.
[2017-12-05 12:28] VITALS: BP 148/50
== END 2017-12-05 11:59 | disposition home or self-care (01) ==
LOC: MED 10:13
DX: K21.9 Gastro-esophageal reflux disease without esophagitis (principal); E11.9 Type 2 diabetes mellitus without complications; I10 Essential (primary) hypertension; Z90.49 Acquired absence of other specified parts of digestive tract
CPT/HCPCS: 36415; 80053; 82948; 83690; 84484; 85025; 99284; S0119

== ENCOUNTER 2017-12-06 09:43 | Emergency (ER) | payer OTHER ==
[~2017-12-06] VITALS: Ht 147.3 cm; Wt 108.6 kg
[2017-12-06 09:48] VITALS: BP 147/61
--- NOTE | 2017-12-06 09:54 | NUR ---
PT AMBULATED TO BED 10
--- NOTE | 2017-12-06 10:00 | NUR ---
C/O EPIGASTRIC BURNING PAIN RADIATING UP ESOPHAGUS X 4 DAYS---WORSE AT NIGHT WORSE WITH PO INTAKE---SEVERE NAUSEA W EMESIS 2 DAYS AGO ---WAS SEEN YESTERDAY IN OUR ER HX---CHF, HTN, ARTHRITIS, DM, CAD. SKIN IS PINK/WARM/DRY; AAOX4 WITH EVEN AND STEADY GAIT; LUNGS CLEAR BL; HR EVEN AND REGULAR; PT DENIES ANY FEVER, CP, SOB, OR COUGH AT THIS TIME; PATIENT STATES PAIN OF 10/10 AT THIS TIME; VSS; PATIENT POSITIONED FOR COMFORT; HOB ELEVATED; BEDRAILS UP X2; BED DOWN. ER MD MADE AWARE OF PT STATUS.
--- NOTE | 2017-12-06 10:08 | NUR ---
BEDSIDE MONITOR SHOWS SB 53, BP 151/47, ON ROOM AIR, O2 SAT 98%, RR 15.
[2017-12-06] MEDS ORDERED: LIDOCAINE VISCOUS 2% 20 ML UDC PO ONE (10:25)
[2017-12-06] MEDS ORDERED: DICYCLOMINE HCL LIQUID 10 MG/5 ML UDC PO ONE (10:25)
[2017-12-06] MEDS ORDERED: ALUMINUM HYD/MAG/SIMETHICONE 30 ML UDC PO ONE (10:25)
--- NOTE | 2017-12-06 10:27 | NUR ---
requested gi cocktail from ---verbal order given
[2017-12-06] MEDS ORDERED: NACL 0.9% 1,000 ML IV SCH (10:47)
[2017-12-06] MEDS ORDERED: PANTOPRAZOLE 40 MG INJ VIAL IVP ONE (10:50)
[2017-12-06] MEDS ORDERED: MORPHINE SULFATE 4 MG/ML SYR IVP ONE (10:50)
[2017-12-06] MEDS ORDERED: ONDANSETRON 4 MG/2 ML VIAL IVP ONE (10:50)
[2017-12-06 11:30] LABS: WHITE BLOOD COUNT (AUTO) 8.6 K/uL (4.8-10.8)
[2017-12-06 11:31] LABS: EOSINOPHILS % (AUTO) 1.5 % (0.0-4.0); HEMATOCRIT 32.8 % (36-48); HEMOGLOBIN 10.6 g/dL (12.0-16.0); LYMPHOCYTES % (AUTO) 22.3 % (20.5-51.1); MEAN CORPUSCULAR HEMOGLOBIN 26 pg (27-31); MEAN CORPUSCULAR HGB CONC 32 g/dL (33-37); MEAN CORPUSCULAR VOLUME 80 fL (80-94); MONOCYTES % (AUTO) 7.9 % (1.7-9.3); NEUTROPHILS % (AUTO) 67.7 % (42.2-75.2); PLATELET COUNT (AUTO) 295 K/uL (140-450); RED BLOOD CELL COUNT(AUTO) 4.12 MIL/uL (4.20-5.40); RED CELL DISTRIBUTION WIDTH 16.5 % (11.6-13.7)
[2017-12-06 11:32] LABS: BASOPHILS % (AUTO) 0.6 % (0.0-2.0); EOSINOPHILS # (AUTO) 0.1 K/uL (0-0.4); LYMPHOCYTES # (AUTO) 1.9 K/uL (2.5-16.5); MONOCYTES # (AUTO) 0.7 K/uL (0.8-1.0); NEUTROPHILS # (AUTO) 5.9 K/uL (1.8-7.7)
[2017-12-06 11:35] LABS: ANION GAP 14.1 (8-16); CARBON DIOXIDE 29.5 mmol/L (21-32); CHLORIDE 102 mmol/L (98-107); CREATININE 0.8 mg/dL (0.6-1.3); GLUCOSE 136 mg/dL (74-106); POTASSIUM 4.6 mmol/L (3.5-5.1); SODIUM SERUM 141 mmol/L (136-145); UREA NITROGEN, BLOOD 11 mg/dL (7-18)
[2017-12-06 11:40] LABS: ALBUMIN 3.1 g/dL (3.4-5.0); ASPARTATE AMINOTRANSFERASE 22 U/L (15-37); LIPASE 61 U/L (73-393); TOTAL BILIRUBIN 0.3 mg/dL (0.0-1.0)
--- NOTE | 2017-12-06 12:00 | NUR ---
PT STARTED TO DRINK ORAL CONTRAST FOR CT.
[2017-12-06] MEDS ORDERED: MORPHINE SULFATE 2 MG/ML SYR IVP ONE (13:20)
--- NOTE | 2017-12-06 13:30 | NUR ---
RUSTY ARIAS DONE, NOTIFIED CT DEPARTMENT. Addendum: 12/06/17 at 1330 by RODNEY ORAL CONTRAST
[2017-12-06] MEDS ORDERED: diphenhydrAMINE 50 MG/ML VIAL IVP ONE (13:35)
[2017-12-06 13:46] LABS: APPEARANCE,URINE CLEAR (CLEAR); BILIRUBIN,URINE NEGATIVE (NEGATIVE); BLOOD, URINE NEGATIVE (NEGATIVE); COLOR,URINE YELLOW (YELLOW); LEUKOCYTE ESTERASE ,URINE NEGATIVE (NEGATIVE); NITRITE, URINE NEGATIVE (NEGATIVE); PH,URINE 7.5 (5.0-9.0); UGLUCOSE NEGATIVE (NEGATIVE)
--- NOTE | 2017-12-06 14:13 | NUR ---
PT LEFT FOR CT VIA WHEELCHAIR PER TECH.
--- NOTE | 2017-12-06 15:15 | NUR ---
PT STAYING IN BED, NO S/S OF RESPIRATORY OR DISCOMFORT NOTED. SON AT BEDSIDE. PT STATED NO PAIN AT THIS TIME.
[2017-12-06 16:35] VITALS: BP 157/45
--- NOTE | 2017-12-06 16:35 | NUR ---
Patient discharged with v/s stable. Written and verbal after care instructions given and explained. Patient alert, oriented and verbalized understanding of instructions. Ambulatory with steady gait. All questions addressed prior to discharge. ID band removed. Patient advised to follow up with PMD. Rx of REGLAN, NEXIUM, AND PEPCID given. Patient educated on indication of medication including possible reaction and side effects. Opportunity to ask questions provided and answered. PT SON AT BEDSIDE, VERBALIZED UNDERSTANDING.
== END 2017-12-06 16:35 | disposition home or self-care (01) ==
LOC: MED 09:43
DX: R10.13 Epigastric pain (principal); R11.0 Nausea; I11.0 Hypertensive heart disease with heart failure; I50.9 Heart failure, unspecified; E11.9 Type 2 diabetes mellitus without complications; K21.9 Gastro-esophageal reflux disease without esophagitis; Z90.49 Acquired absence of other specified parts of digestive tract
CPT/HCPCS: 36415; 74177; 80053; 81003; 83690; 85025; 93005; 96361; 96374; 96375; 99285; C9113; J1200; J2270; J2405; Q9967

== ENCOUNTER 2017-12-19 23:48 | Inpatient (IN) | payer OTHER ==
[~2017-12-19] VITALS: Ht 144.8 cm; Wt 107.5 kg
[2017-12-19 23:54] VITALS: BP 152/76
--- NOTE | 2017-12-19 23:54 | NUR ---
PT.AMBULATED TO ER BED 2
--- NOTE | 2017-12-20 00:11 | NUR ---
77Y/F PT. BIB FAMILY TO ED WITH C/O UPPER ABSDOMINAL PAIN X3 DAYS. HX. GASTRITIS, ON OMEPRAZOLE. AAO X4, AMBULATORY WITH STEDAY GAIT. RESPIRATIONS ROOM AIR, EVEN AND UNLABORED. ABDOMEN, SOFT, NON TENDER, ACTIVE BS X4. C/O PAIN 9/, VSS, ER MD MADE AWARE OF PT. STATUS.
[2017-12-20] MEDS ORDERED: MORPHINE SULFATE 4 MG/ML SYR IVP ONE (00:15)
[2017-12-20 00:34] LABS: BASOPHILS # (AUTO) 1.7 K/uL (0.00-0.22); EOSINOPHILS # (AUTO) 0.2 K/uL (0-0.4); EOSINOPHILS % (AUTO) 1.8 % (0.0-4.0); LYMPHOCYTES # (AUTO) 2.4 K/uL (2.5-16.5); LYMPHOCYTES % (AUTO) 17.7 % (20.5-51.1); MEAN CORPUSCULAR HEMOGLOBIN 25 pg (27-31); MEAN CORPUSCULAR HGB CONC 31 g/dL (33-37); MEAN CORPUSCULAR VOLUME 79.8 fL (80-94); MONOCYTES # (AUTO) 0.7 K/uL (0.8-1.0); MONOCYTES % (AUTO) 5.2 % (1.7-9.3); NEUTROPHILS # (AUTO) 8.8 K/uL (1.8-7.7); PLATELET COUNT (AUTO) 275 K/uL (140-450); RED BLOOD CELL COUNT(AUTO) 4.39 MIL/uL (4.20-5.40); RED CELL DISTRIBUTION WIDTH 15.5 % (11.6-13.7); WHITE BLOOD COUNT (AUTO) 13.8 K/uL (4.8-10.8)
[2017-12-20 00:40] LABS: NEUTROPHILS % (AUTO) 75.6 % (42.2-75.2)
[2017-12-20 00:43] LABS: ANION GAP 11.9 (8-16); CARBON DIOXIDE 29.3 mmol/L (21-32); CHLORIDE 100 mmol/L (98-107); CREATININE 0.8 mg/dL (0.6-1.3); GLUCOSE 121 mg/dL (74-106); POTASSIUM 5.2 mmol/L (3.5-5.1); SODIUM SERUM 136 mmol/L (136-145); UREA NITROGEN, BLOOD 14 mg/dL (7-18)
[2017-12-20] MEDS ORDERED: diphenhydrAMINE 50 MG/ML VIAL IVP ONE (00:45)
--- NOTE | 2017-12-20 00:45 | NUR ---
LT.ARM RASH AND ITCHING AFTER GIVEN MORPHINE, NOTIFIED . NEW ORDER RECIEVED, WILL CONTINUE TO MONITOR
--- NOTE | 2017-12-20 00:46 | NUR ---
PT.TAKEN TO CT
[2017-12-20 00:49] LABS: APPEARANCE,URINE CLEAR (CLEAR); BILIRUBIN,URINE NEGATIVE (NEGATIVE); BLOOD, URINE TRACE-L (NEGATIVE); COLOR,URINE YELLOW (YELLOW); LEUKOCYTE ESTERASE ,URINE TRACE (NEGATIVE); NITRITE, URINE NEGATIVE (NEGATIVE); UGLUCOSE NEGATIVE (NEGATIVE)
[2017-12-20 00:50] LABS: ALBUMIN 3.1 g/dL (3.4-5.0); ASPARTATE AMINOTRANSFERASE 27 U/L (15-37); TOTAL BILIRUBIN 0.4 mg/dL (0.0-1.0)
[2017-12-20 00:56] LABS: RBC,URINE 0-5 (RARE) /HPF (0-5); WBC,URINE 0-5 (RARE) /HPF (0-5)
--- NOTE | 2017-12-20 01:00 | NUR ---
PT.BACK FROM CT
--- NOTE | 2017-12-20 02:18 | NUR ---
Patient appears to be resting comfortably in bed. Vital Signs within normal limits. Respirations even and unlabored.
[2017-12-20] MEDS ORDERED: PIPERACILLIN/TAZOBACTAM 3.375 GM in DEXTROSE 5% 50 ML IV ONE (02:35)
[2017-12-20] MEDS ORDERED: PIPERACILLIN/TAZOBACTAM 3.375 GM VIAL IV ONE (02:38)
[2017-12-20] MEDS ORDERED: DOCUSATE SODIUM 100 MG GELCAP PO PRN (02:55)
[2017-12-20] MEDS ORDERED: MORPHINE SULFATE 4 MG/ML SYR IVP PRN (02:55)
[2017-12-20] MEDS ORDERED: KETOROLAC 15 MG/ML VIAL IVP PRN (02:55)
[2017-12-20] MEDS ORDERED: HYDROcodone/APAP 7.5/325 MG 1 TAB PO PRN (02:55)
--- NOTE | 2017-12-20 03:15 | NUR ---
Patient will be admitted to care of . Admited to TELEMETRY. Will go to room 121B. Belongings list completed. Report to AZAEL KUMAR.
[2017-12-20] MEDS ORDERED: DEXTROSE 50% 50 ML SYR IVP PRN (03:20)
[2017-12-20] MEDS ORDERED: INSULIN LISPRO SLIDING SCALE 100 UNITS/ML VIAL SUBQ PRN (03:20)
[2017-12-20] MEDS ORDERED: ALUMINUM HYD/MAG/SIMETHICONE 30 ML UDC PO PRN ×2 (03:30→03:50)
--- NOTE | 2017-12-20 03:45 | NUR ---
Admitted from ER , with chief complaint of ABDOMINAL PAIN , 77 y/o ,Female, Appropriate, AAOX4, NO S/S OF ACUTE DISTRESS. PT STATES 8/10 PAIN TO ABDOMEN. IV SITE PATENT AND INTACT. DAUGHTER IN LAW AT BEDSIDE. PT oriented to call light, bed, phone,television, bathroom, smoking policy,visiting hours, procedures, ID bracelet on. Belongings list checked. CALL LIGHT WITHIN REACH. SAFETY MEASURES ENSURED. WILL CONTINUE TO MONITOR.
[2017-12-20 03:57] LABS: PROTHROMBIN TIME 10.9 secs (10.8-13.4)
[2017-12-20 03:59] VITALS: BP 167/39
[2017-12-20] MEDS ORDERED: LIDOCAINE VISCOUS 2% 20 ML UDC PO SCH (04:00)
[2017-12-20] MEDS ORDERED: DICYCLOMINE HCL LIQUID 10 MG/5 ML UDC PO SCH (04:00)
[2017-12-20] MEDS ORDERED: SODIUM POLYSTYRENE 15 GM/60 ML UDBTL PO SCH (04:00)
[2017-12-20 04:15] LABS: CHOL/HDL RATIO 3.3 (1-4.5); MAGNESIUM 1.8 mg/dL (1.8-2.4); PHOSPHORUS 4.4 mg/dL (2.5-4.9); THYROID STIMULATING HORMONE 1.6 uIU/mL (0.34-3.74)
--- NOTE | 2017-12-20 04:30 | NUR ---
PER DR. LOIS LUCAS TO HOLD 0400 AM MEDS UNTIL PT WAKES UP.
[2017-12-20] MEDS: NACL 0.9% 1,000 ML IV SCH ×2 (05:57→10:36)
[2017-12-20] MEDS: BLOOD GLUCOSE MONITORING 1 DEV DEV FS SCH ×4 (06:29→20:05)
[2017-12-20] MEDS ORDERED: PANTOPRAZOLE 40 MG TABEC PO SCH (06:30)
[2017-12-20] MEDS: metFORMIN 500 MG TAB PO SCH ×2 (06:33→11:30)
--- NOTE | 2017-12-20 07:18 | NUR ---
ENDORSED PLAN OF CARE TO DAY RN. PT REMAINS STABLE
--- NOTE | 2017-12-20 07:19 | NUR ---
RECEIVED REPORT FROM CRUDE OIL TREATER NURSE AT BEDSIDE FOR CONTINUITY OF CARE. PATEINT RESTING IN BED WITH EYES CLOSED. RESP EVEN AND UNLABORED.PT WITH RAC 20G WITH NS RUNNING @130ML/HR.
[2017-12-20 08:00] VITALS: BP 137/47
--- NOTE | 2017-12-20 08:05 | NUR ---
INITIAL ASSESSMENT PERFORMED. VSS.PT IN BED WITH EYES CLOSED EASILY WOKEN. RESPONDS TO QUESTIONS APPROPRIATELY. NO ACUTE DISTRESS NOTED. LUNG SOUNDS CLEAR X ALL LOBES. NO SOB NOTED. BOWEL SOUNDS ACTIVE X4 LOBES. IV SITE TO RAC 20G. PATENT AND INTACT. NS @60ML/HR. SKIN INTACT. PATIENT VERBALIZED MUSCULAR PAIN WELL ABDOMINAL PAIN 03/09. WILL MEDICATE PATIENT. PATIENT VERBALIZED LBM 12/19/17 DISCUSSED PLAN OF CARE WITH PT, STATED UNDERSTANDING AND AGREEMENT. BED IN LOW POSITION. CALL LIGHT WITHIN REACH. WILL CONT TO MONITOR.
[2017-12-20] MEDS: LACTOBACILLUS RHAMNOSUS GG 1 EACH CAP PO SCH (08:51)
[2017-12-20] MEDS: PREGABALIN 50 MG CAP PO SCH (08:51)
[2017-12-20] MEDS: VALSARTAN 80 MG TAB PO SCH (08:58)
[2017-12-20] MEDS ORDERED: FLUoxetine 20 MG CAP PO SCH (09:00)
[2017-12-20] MEDS: ISOSORBIDE DINITRATE 20 MG TAB PO SCH ×2 (09:00→20:13)
[2017-12-20] MEDS ORDERED: METHOCARBAMOL 500 MG TAB PO SCH (09:00)
[2017-12-20] MEDS ORDERED: PARoxetine 20 MG TAB PO SCH (09:00)
[2017-12-20] MEDS ORDERED: amLODIPine 5 MG TAB PO SCH (09:00)
[2017-12-20] MEDS ORDERED: FUROSEMIDE 20 MG TAB PO SCH (09:00)
[2017-12-20] MEDS: DOCUSATE SODIUM 250 MG GELCAP PO SCH ×2 (09:00→20:05)
[2017-12-20] MEDS ORDERED: ASPIRIN 81 MG TAB.CHEW PO SCH (09:00)
[2017-12-20] MEDS ORDERED: METHADONE 10 MG TAB PO SCH (09:00)
--- NOTE | 2017-12-20 09:00 | NUR ---
ADMINISTERED SCHEDULED MEDICATIONS ORDERED WITH TORADOL PATIENT C/O MUSCULAR AND ABD PAIN 03/09 .CALL LIGHT WITHIN REACH. WILL CONT TO MONITOR PT.
--- NOTE | 2017-12-20 10:27 | NUR ---
PATIENT HAS BEEN SCREENED AND CATEGORIZED HIGH NUTRITION RISK. PATIENT WILL BE SEEN WITHIN 1-2 DAYS OF ADMISSION. 12/20/17-12/21/[address]
[2017-12-20] MEDS: ALUMINUM HYD/MAG/SIMETHICONE 30 ML UDC PO PRN (10:39)
--- NOTE | 2017-12-20 10:40 | NUR ---
ADMINISTERED MAALOX AND MORPHINE ORDERED. PATIENT CONT TO C/O 05/09 PAIN ABDOMINALLY. HR 55, PER PT BASELINE HR BELOW 60. CALL LIGHT WITHIN REACH. WILL CONT TO MONITOR PT.
[2017-12-20] MEDS ORDERED: NITROGLYCERIN 0.4 MG TAB SL PRN (10:50)
[2017-12-20] MEDS ORDERED: ATORVASTATIN 20 MG TAB PO SCH (11:09)
[2017-12-20 12:00] VITALS: BP 149/43
[2017-12-20] MEDS ORDERED: PIPER/TAZO 2.25GM/D5W PREMIX 50 ML IV SCH (12:00)
[2017-12-20] MEDS ORDERED: LISINOPRIL 5 MG TAB PO SCH (12:00)
[2017-12-20] MEDS ORDERED: METOPROLOL 25 MG TAB PO SCH ×2 (12:00→21:00)
[2017-12-20] MEDS ORDERED: PANTOPRAZOLE 40 MG INJ VIAL IVP SCH ×2 (13:00)
[2017-12-20] MEDS ORDERED: SUCRALFATE 1 GM TAB PO SCH (13:00)
--- NOTE | 2017-12-20 13:37 | NUR ---
PATIENT RECEIVED SCHEDULED MEDS ORDERED. TOLERATED WELL. PATIENT RESTING COMFORTABLY.
--- NOTE | 2017-12-20 15:00 | NUR ---
WITNESSED CONSENT BEING SIGN FOR CT SCAN OF ABD AND PELVIS WITH CONTRAST. PATIENT VERBALIZED UNDERSTANDING AND AGREEMENT TO PROCEDURE. PATIENT ALERT AND ABLE TO VERBALIZE NEEDS. NO ACUTE DISTRESS NOTED. PATIENT VERBALIZED PAIN 4/10 AND TOLERABLE. RESTING COMFORTABLY.WILL CONT TO MONITOR PT.
[2017-12-20 16:00] VITALS: BP 126/26
--- NOTE | 2017-12-20 17:00 | NUR ---
REPORTED TO DR DRAKE PATIENT WITH BP126/26 AND RECHECKED BP WITH BP 117/35. DR DRAKE IN TO ASSESS PT. RECHECKED BP 150/38. MD TO FOLLOW UP WITH ORDERS IF NEEDED.
--- NOTE | 2017-12-20 19:20 | NUR ---
ENDORSED REPORT TO DB2 SYSTEMS PROGRAMMER NURSE AT BEDSIDE FOR CONTINUITY OF CARE. PATIENT STABLE
--- NOTE | 2017-12-20 19:21 | NUR ---
PATIENT REPORT RECEIVED FROM MORNING NURSE AT BEDSIDE. PATIENT IS AWAKE AND ALERT. NO SIGNS AND SYMPTOMS OF DISTRESS NOTED. NO COMPLAINTS OF PAIN AT THIS TIME. PLAN OF CARE DISCUSSED WITH PATIENT. PATIENT VERBALIZED UNDERSTANDING. BED IN LOWEST POSITION, SIDE RAILS UP AND CALL LIGHT WITHIN REACH. WILL CONTINUE TO MONITOR.
--- NOTE | 2017-12-20 19:31 | NUR ---
PATIENT PICKED UP PY RADIOLOGY TO GET CT DONE.
[2017-12-20 20:00] VITALS: BP 150/44
[2017-12-20] MEDS: SUCRALFATE 1 GM TAB PO SCH (20:17)
--- NOTE | 2017-12-20 21:00 | NUR ---
ISORDIL AND METOPROLOL HELD DUE TO DECREASED HEAR RATE OF 50. DR. ABREU NOTIFIED.
--- NOTE | 2017-12-20 21:00 | NUR ---
COLACE HELD DUE TO PATIENT HAVING SEVERAL BOWEL MOVEMENTS DURING PREVIOUS SHIFT
--- NOTE | 2017-12-20 22:59 | NUR ---
CHECKED ON PATIENT. PATIENT IS ASLEEP. NO SIGNS AND SYMPTOMS OF DISTRESS NOTED. BREATHING EVEN AND UNLABORED. WILL CONTINUE TO MONITOR.
[2017-12-20] MEDS: ACETAMINOPHEN 325 MG TAB PO PRN (23:34)
[2017-12-21] VITALS: BP 153/43
--- NOTE | 2017-12-21 02:00 | NUR ---
CHECKED ON PATIENT. PATIENT IS ASLEEP. NO SIGNS AND SYMPTOMS OF DISTRESS NOTED. BREATHING EVEN AND UNLABORED. WILL CONTINUE TO MONITOR.
[2017-12-21] MEDS ORDERED: NACL 0.9% 1,000 ML IV SCH (02:54)
[2017-12-21 04:00] VITALS: BP 148/40
--- NOTE | 2017-12-21 05:30 | NUR ---
PATIENT COMPLAINED OF NAUSEA. WILL MEDICATE ORDERED.
[2017-12-21] MEDS: ACETAMINOPHEN 325 MG TAB PO PRN ×4 (05:50→20:17)
[2017-12-21] MEDS: ONDANSETRON 4 MG/2 ML VIAL IM/IVP PRN ×2 (05:52→12:20)
[2017-12-21] MEDS: BLOOD GLUCOSE MONITORING 1 DEV DEV FS SCH ×4 (06:33→21:01)
--- NOTE | 2017-12-21 07:18 | NUR ---
PATIENT REPORT GIVEN TO MORNING NURSE AT BEDSIDE FOR CONTINUITY OF CARE. PATIENT IS IN STABLE CONDITION.
--- NOTE | 2017-12-21 07:19 | NUR ---
RECEIVED REPORT FROM NETWORK SECURITY ANALYST NURSE CARLOS AT BEDSIDE FOR CONTINUITY OF CARE. PT IS AWAKE AND ORIENTED. INTRODUCED SELF AND UPDATED BOARD. PT WAS COMPLAINING OF HEADACHE. WILL RETURN WITH PAIN MEDS. PT GOT UP TO USE RESTROOM. UP WITH STEADY GAIT. SITTING UP IN BED. NO SOB. ON RA O2 SAT 98%. SITTING UP IN BED NOW EATING BREAKFAST. CALL LIGHT WITHIN REACH. WILL CONTINUE TO MONITOR.
[2017-12-21 07:25] LABS: ANION GAP 10.4 (8-16); CARBON DIOXIDE 30.5 mmol/L (21-32); CHLORIDE 103 mmol/L (98-107); CREATININE 0.8 mg/dL (0.6-1.3); GLUCOSE 105 mg/dL (74-106); POTASSIUM 3.9 mmol/L (3.5-5.1); SODIUM SERUM 140 mmol/L (136-145); UREA NITROGEN, BLOOD 12 mg/dL (7-18)
[2017-12-21 07:31] LABS: BASOPHILS # (AUTO) 0.3 K/uL (0.00-0.22); BASOPHILS % (AUTO) 3.9 % (0.0-2.0); EOSINOPHILS # (AUTO) 0.3 K/uL (0-0.4); EOSINOPHILS % (AUTO) 3.7 % (0.0-4.0); HEMATOCRIT 31.6 % (36-48); HEMOGLOBIN 10.5 g/dL (12.0-16.0); LYMPHOCYTES # (AUTO) 2.6 K/uL (2.5-16.5); LYMPHOCYTES % (AUTO) 31.3 % (20.5-51.1); MEAN CORPUSCULAR HEMOGLOBIN 26 pg (27-31); MEAN CORPUSCULAR HGB CONC 33 g/dL (33-37); MEAN CORPUSCULAR VOLUME 79.2 fL (80-94); MONOCYTES # (AUTO) 0.7 K/uL (0.8-1.0); MONOCYTES % (AUTO) 7.9 % (1.7-9.3); NEUTROPHILS # (AUTO) 4.5 K/uL (1.8-7.7); NEUTROPHILS % (AUTO) 53.2 % (42.2-75.2); PLATELET COUNT (AUTO) 268 K/uL (140-450); RED BLOOD CELL COUNT(AUTO) 3.99 MIL/uL (4.20-5.40); RED CELL DISTRIBUTION WIDTH 15.9 % (11.6-13.7); WHITE BLOOD COUNT (AUTO) 8.4 K/uL (4.8-10.8)
[2017-12-21 08:00] VITALS: BP 151/46
[2017-12-21] MEDS: VALSARTAN 80 MG TAB PO SCH (08:53)
[2017-12-21] MEDS: LACTOBACILLUS RHAMNOSUS GG 1 EACH CAP PO SCH (08:54)
[2017-12-21] MEDS: SUCRALFATE 1 GM TAB PO SCH ×2 (08:54→20:17)
[2017-12-21] MEDS: ISOSORBIDE DINITRATE 20 MG TAB PO SCH ×2 (08:54→20:17)
[2017-12-21] MEDS: PREGABALIN 50 MG CAP PO SCH (08:55)
[2017-12-21] MEDS: amLODIPine 5 MG TAB PO SCH (08:55)
[2017-12-21] MEDS: PANTOPRAZOLE 40 MG INJ VIAL IVP SCH (08:55)
[2017-12-21] MEDS: DOCUSATE SODIUM 250 MG GELCAP PO SCH ×2 (08:56→20:16)
[2017-12-21] MEDS ORDERED: ATORVASTATIN 20 MG TAB PO SCH (09:00)
[2017-12-21] MEDS ORDERED: LISINOPRIL 5 MG TAB PO SCH (09:00)
[2017-12-21] MEDS ORDERED: PANTOPRAZOLE 40 MG INJ VIAL IVP SCH (09:00)
[2017-12-21 09:12] LABS: T4 (THYROXINE) 7.9 ug/dL (4.5-12.0)
--- NOTE | 2017-12-21 11:29 | NUR ---
STARTED IV TO R AC 20G. PT TOLERATED WELL. D/C OTHER IV TO R AC 20G. IV CATHETER TIP INTACT. APPLIED DRESSING AND PRESSURE TO SITE. NO BLEEDING NOTED. PT HAS FAMILY MEMBERS AT BEDSIDE. NO SIGNS OF DISTRESS. CALL LIGHT WITHIN REACH. WILL CONTINUE TO MONITOR.
[2017-12-21 12:00] VITALS: BP 158/45
--- NOTE | 2017-12-21 12:20 | NUR ---
PT WAS COMPLAINING OF NAUSEA AND HEADACHE. ADMINISTERED ZOFRAN IVP. PT TOLERATED WELL. EXPLAINED TO PT THAT IT IS TOO SOON TO GIVE TYLENOL. PT VERBALIZED UNDERSTANDING. FAMILY AT BEDSIDE. PT SITTING UP IN BED. NO OTHER COMPLAINTS AT THIS TIME. WILL CONTINUE TO MONITOR.
--- NOTE | 2017-12-21 12:31 | NUR ---
12/21/17 RD INITIAL ASSESSMENT COMPLETED PLEASE REFER TO NUTRITION ASSESSMENT UNDER CARE ACTIVITY FOR ESTIMATED NEEDS. RECOMMENDATIONS: 1. Continue current diet as tolerated. 2. Encourage PO intakes. 3. Appreciate food preferences. 3. RD will follow up in 3-5 days; Moderate risk. Omaira Colung[address] RD, [facility]
[2017-12-21 16:00] VITALS: BP 152/47
[2017-12-21] MEDS ORDERED: hydrALAZINE 10 MG TAB PO SCH (17:20)
[2017-12-21] MEDS ORDERED: MAGNESIUM CITRATE 300 ML BTL PO SCH (18:00)
[2017-12-21] MEDS ORDERED: BISACODYL 5 MG TABEC PO SCH (18:00)
--- NOTE | 2017-12-21 18:26 | NUR ---
ADMINISTERED DULCOLAX 20MG PO AND MAG CITRATE FOLLOWED BY 1L WATER ORDERED BY DR JOLLEY
--- NOTE | 2017-12-21 19:20 | NUR ---
ENDORSED PT TO PAPER GOODS MACHINE OPERATOR NURSE KELLY AT BEDSIDE FOR CONTINUITY OF CARE. PT IN STABLE CONDITION.
--- NOTE | 2017-12-21 19:21 | NUR ---
RECEIVED BEDSIDE REPORT FROM DAY SHIFT NURSE JAYNA RN, PT STABLE, NO DISTRESS NOTED, IV TO R AC 20G SL, PATENT, INTACT, INITIAL ASSESSMENT DONE, ALL SAFETY PRECAUTION MET, WILL CONTINUE TO MONITOR.
[2017-12-21 20:00] VITALS: BP 175/49
--- NOTE | 2017-12-21 20:17 | NUR ---
CHECKED ON PT, PT BP: 175/49, HR 60, INFORMED DR. FORREST DR. STATED TO JUST GIVE PT THE ISODRIL SCHEDULED, MEDICATION SCHEDULED ADMINISTERED, PT TOLERATED WELL, NO DISTRESS NOTED, CALL LIGHT WITHIN REACH, WILL CONTINUE TO MONITOR.
--- NOTE | 2017-12-21 21:11 | NUR ---
FLEET ENEMA GIVEN, PT TOLERATED WELL, STABLE, NO DISTRESS NOTED, CALL LIGHT WITHIN REACH, WILL CONTINUE TO MONITOR.
--- NOTE | 2017-12-21 21:17 | NUR ---
RECHECKED PT BP, 149/48, HR 62 PT STABLE, NO DISTRESS NOTED, PT STATED HEADACHE STILL NOT SUBSIDE CURRENTLY AT 04/08, NOTIFIED DR. FORREST DR STATED UNDERSTANDING AND WILL ORDER PAIN MEDICATION. WILL CONTINUE WITH ORDERS.
[2017-12-21] MEDS ORDERED: SODIUM PHOSPHATE 118 ML ENEM RC SCH (22:00)
[2017-12-21] MEDS: HYDROcodone/APAP 5/325 MG 1 TAB TAB PO PRN (22:35)
--- NOTE | 2017-12-21 22:35 | NUR ---
PT STILL C/O PAIN 7/10 ON THE HEAD THAT RADIATES BACK TO HER NECK, PAIN MEDICATION GIVEN, PT TOLERATED WELL, NO DISTRESS NOTED, CALL LIGHT WITHIN REACH, WILL CONTINUE TO MONITOR.
--- NOTE | 2017-12-21 23:51 | NUR ---
CHECKED ON PT, PT STABLE, NO DISTRESS NOTED, CALL LIGHT WITHIN REACH, WILL CONTINUE TO MONITOR.
[2017-12-22] VITALS: BP 151/49
[2017-12-22] MEDS ORDERED: BISACODYL 5 MG TABEC PO SCH
[2017-12-22] MEDS ORDERED: MAGNESIUM CITRATE 300 ML BTL PO SCH
[2017-12-22] MEDS ORDERED: BISACODYL 5 MG TABEC ONE (01:27)
--- NOTE | 2017-12-22 01:36 | NUR ---
ORDERED MEDICATION GIVEN, PT TOLERATED WELL, PT STABLE, NO DISTRESS NOTED, CALL LIGHT WITHIN REACH, WILL CONTINUE TO MONITOR.
[2017-12-22 04:00] VITALS: BP 144/39
--- NOTE | 2017-12-22 04:11 | NUR ---
CHECKED ON PT, PT SLEEPING, NO DISTRESS NOTED, CALL LIGHT WITHIN REACH, WILL CONTINUE TO MONITOR
--- NOTE | 2017-12-22 06:27 | NUR ---
FLEET ENEMA ADMINISTERED, PT TOLERATED WELL, NO DISTRESS NOTED, CALL LIGHT WITHIN REACH, WILL CONTINUE TO MONITOR.
[2017-12-22] MEDS: BLOOD GLUCOSE MONITORING 1 DEV DEV FS SCH ×4 (06:28→20:51)
[2017-12-22] MEDS ORDERED: SODIUM PHOSPHATE 118 ML ENEM RC SCH (07:00)
--- NOTE | 2017-12-22 07:25 | NUR ---
ENDORSED PLAN OF CARE TO DAY SHIFT NURSE JAYNA ADDISON, FOR CONTINUOUS OF CARE, PT STABLE, NO DISTRESS NOTED, CALL LIGHT WITHIN REACH.
--- NOTE | 2017-12-22 07:26 | NUR ---
RECEIVED REPORT FROM BSW NURSE KELLY AT BEDSIDE FOR CONTINUITY OF CARE. PT IS AWAKE AND ORIENTED. INTRODUCED SELF AND UPDATED BOARD. PT WAS COMPLAINING OF ABD PAIN AND NAUSEA. WILL RETURN WITH MEDICATIONS FOR PAIN AND NAUSEA. PT GOT UP TO USE RESTROOM WITH STEADY GAIT. STATED SHE HAD ANOTHER BM POST BOWEL PREP. AWARE FOR EGD AND COLONOSCOPY TODAY. NO SOB. ON RA O2 SAT 99%. IV TO L AC 20G INTACT. SL. NO OTHER SIGNS OF DISTRESS. BED IN LOW POSITION, WHEELS LOCKED, CALL LIGHT WITHIN REACH. WILL CONTINUE TO MONITOR.
[2017-12-22 07:29] LABS: CARBON DIOXIDE 29.8 mmol/L (21-32); CHLORIDE 105 mmol/L (98-107); CREATININE 0.8 mg/dL (0.6-1.3); GLUCOSE 116 mg/dL (74-106); POTASSIUM 3.8 mmol/L (3.5-5.1); SODIUM SERUM 142 mmol/L (136-145); UREA NITROGEN, BLOOD 7 mg/dL (7-18)
[2017-12-22] MEDS: HYDROcodone/APAP 5/325 MG 1 TAB TAB PO PRN ×3 (07:35→21:01)
[2017-12-22] MEDS: ONDANSETRON 4 MG/2 ML VIAL IM/IVP PRN ×2 (07:35→19:20)
[2017-12-22 07:57] LABS: HEMATOCRIT 32.2 % (36-48); MEAN CORPUSCULAR HEMOGLOBIN 25 pg (27-31); MEAN CORPUSCULAR HGB CONC 31 g/dL (33-37); MEAN CORPUSCULAR VOLUME 80.7 fL (80-94); PLATELET COUNT (AUTO) 260 K/uL (140-450); RED BLOOD CELL COUNT(AUTO) 3.99 MIL/uL (4.20-5.40); RED CELL DISTRIBUTION WIDTH 15.8 % (11.6-13.7); WHITE BLOOD COUNT (AUTO) 9.6 K/uL (4.8-10.8)
[2017-12-22 08:00] VITALS: BP 126/63
[2017-12-22] MEDS: amLODIPine 5 MG TAB PO SCH (09:00)
[2017-12-22] MEDS: SUCRALFATE 1 GM TAB PO SCH ×2 (09:00→20:48)
[2017-12-22] MEDS: VALSARTAN 80 MG TAB PO SCH (09:00)
[2017-12-22] MEDS: LACTOBACILLUS RHAMNOSUS GG 1 EACH CAP PO SCH (09:00)
[2017-12-22] MEDS: hydrALAZINE 10 MG TAB PO SCH ×3 (09:00→16:40)
[2017-12-22] MEDS: PANTOPRAZOLE 40 MG INJ VIAL IVP SCH (09:00)
[2017-12-22] MEDS: PREGABALIN 50 MG CAP PO SCH (09:00)
[2017-12-22] MEDS: DOCUSATE SODIUM 250 MG GELCAP PO SCH ×2 (09:00→20:48)
[2017-12-22] MEDS: ISOSORBIDE DINITRATE 20 MG TAB PO SCH ×2 (09:00→20:48)
--- NOTE | 2017-12-22 10:00 | NUR ---
PT INFORMED OF CHANGED DIRECTOR NEW PRODUCT TIME TO 1100, PT VERBALIZE UNDERSTANDING, FAMILY AT BEDSIDE.
[2017-12-22] MEDS ORDERED: diphenhydrAMINE 50 MG/ML VIAL ONE (11:05)
[2017-12-22] MEDS ORDERED: MIDAZOLAM 2 MG/2 ML VIAL ONE (11:05)
[2017-12-22] MEDS ORDERED: fentaNYL 0.05 MG/ML VIAL ONE (11:05)
--- NOTE | 2017-12-22 11:07 | NUR ---
PT LEFT OFF THE FLOOR FOR EGD AND COLONOSCOPY.
[2017-12-22] MEDS: MIDAZOLAM 2 MG/2 ML VIAL IV SCH ×2 (11:30→12:49)
[2017-12-22] MEDS: fentaNYL 0.05 MG/ML VIAL IVP ONE ×2 (11:31→12:15)
--- NOTE | 2017-12-22 12:23 | NUR ---
PT RETURNED FROM OR, REPORT RECEIVED FROM OR NURSE. VITAL SIGNS CHECKED. T: 98.0 P:76 RR:16 BP: 129/50 O2 SAT: 93% PAIN 0/10.
[2017-12-22 12:25] VITALS: BP 129/50
[2017-12-22 12:52] LABS: EOSINOPHILS % (MANUAL) 3 % (0-4); LYMPHOCYTES % (MANUAL) 43 % (20-46); MONOCYTES % (MANUAL) 7 % (5-12)
[2017-12-22 16:00] VITALS: BP 162/68
--- NOTE | 2017-12-22 16:30 | NUR ---
PT STATED PAIN LOWER AND UPPER ABD QUADRANTS 7/10 MEDICATED WITH NORCO
--- NOTE | 2017-12-22 19:06 | NUR ---
GAVE REPORT TO NIGHTSHIFT NURSE TO KELLY AT BEDSIDE FOR CONTINUITY OF CARE PT IN STABLE CONDITION.
--- NOTE | 2017-12-22 19:07 | NUR ---
RECEIVED BEDSIDE REPORT FROM DAY SHIFT NURSE JAYNA RN, PT STABLE, NO DISTRESS NOTED, IV TO R AC 20G SL, INTACT AND PATENT, PT ON ROOM AIR NO SOB, INITIAL ASSESSMENT DONE, ALL SAFETY PRECAUTION MET, WILL CONTINUE TO MONITOR.
--- NOTE | 2017-12-22 19:20 | NUR ---
PT STATED THAT SHE IS FEELING NAUSEOUS, ZOFRAN GIVEN, PT TOLERATED WELL, NO DISTRESS NOTED, CALL LIGHT WITHIN REACH, WILL CONTINUE TO MONITOR.
[2017-12-22 20:00] VITALS: BP 140/46
--- NOTE | 2017-12-22 21:01 | NUR ---
PT C/O PAIN 04/08, GENERALIZED THROUGHOUT THE BODY, STATED THAT HER PAIN IS ARTHRITIC PAIN,PAIN MEDICATION IS NOT DUE,LAST PAIN MEDICATION WAS GIVEN AT 1630, DR. CLAYTON NOTIFIED, DRKermit STATED TO GIVE THE PRESCRIBED NORCO NOW, GAVE PT NORCO NOW, PT TOLERATED WELL, NO DISTRESS NOTED, CALL LIGHT WITHIN REACH, WILL CONTINUE TO MONITOR.
--- NOTE | 2017-12-22 22:30 | NUR ---
IV LEAKING, NEW IV 24G ON THE R HAND INSERTED, PT TOLERATED WELL, OLD IV TAKEN OUT CATH INTACT, WILL CONTINUE TO MONITOR.
[2017-12-22] MEDS: ALUMINUM HYD/MAG/SIMETHICONE 30 ML UDC PO PRN (22:54)
--- NOTE | 2017-12-22 22:54 | NUR ---
PT STATED HAVING BURNING SENSATION ON THE STOMACH, PRESCRIBED MEDICATION MAALOX GIVEN, PT TOLERATED WELL, NO DISTRESS NOTED, CALL LIGHT WITHIN REACH, WILL CONTINUE TO MONITOR.
--- NOTE | 2017-12-22 23:54 | NUR ---
CHECKED ON PT, PT SLEEPING, NO DISTRESS NOTED, CALL LIGHT WITHIN REACH, WILL CONTINUE TO MONITOR.
[2017-12-23] VITALS: BP 127/49
--- NOTE | 2017-12-23 02:18 | NUR ---
CHECKED ON PT, PT SLEEPING, NO DISTRESS NOTED, CALL LIGHT WITHIN REACH, WILL CONTINUE TO MONITOR.
[2017-12-23] MEDS: HYDROcodone/APAP 5/325 MG 1 TAB TAB PO PRN ×2 (02:52→08:56)
--- NOTE | 2017-12-23 02:52 | NUR ---
PT C/O HEADACHE 05/09, STATED THAT SHE FEELS THAT HER BP IS HIGH, CHECKED ON BP, BP OF 156/49 HR 62, PT STABLE, NO DISTRESS NOTED, PAIN MEDICATION PRESCRIBED GIVEN, PT TOLERATED WELL, CALL LIGHT WITHIN REACH, WILL CONTINUE TO MONITOR.
[2017-12-23 04:00] VITALS: BP 158/60
--- NOTE | 2017-12-23 05:21 | NUR ---
PT SLEEPING, NO DISTRESS NOTED, CALL LIGHT WITHIN REACH, WILL CONTINUE TO MONITOR.
[2017-12-23] MEDS: BLOOD GLUCOSE MONITORING 1 DEV DEV FS SCH ×2 (06:35→11:26)
--- NOTE | 2017-12-23 07:30 | NUR ---
ENDORSED PLAN OF CARE TO DAY SHIFT NURSE, PT STABLE, NO DISTRESS NOTED, CALL LIGHT WITHIN REACH, WILL CONTINUE TO MONITOR.
[2017-12-23 08:00] VITALS: BP 157/55
[2017-12-23] MEDS: ISOSORBIDE DINITRATE 20 MG TAB PO SCH (08:47)
[2017-12-23] MEDS: SUCRALFATE 1 GM TAB PO SCH (08:47)
[2017-12-23] MEDS: LACTOBACILLUS RHAMNOSUS GG 1 EACH CAP PO SCH (08:47)
[2017-12-23] MEDS: PANTOPRAZOLE 40 MG INJ VIAL IVP SCH (08:47)
[2017-12-23] MEDS: PREGABALIN 50 MG CAP PO SCH (08:48)
[2017-12-23] MEDS: amLODIPine 5 MG TAB PO SCH (08:48)
[2017-12-23] MEDS: VALSARTAN 80 MG TAB PO SCH (08:48)
[2017-12-23] MEDS: hydrALAZINE 10 MG TAB PO SCH (08:49)
[2017-12-23] MEDS: DOCUSATE SODIUM 250 MG GELCAP PO SCH (08:49)
--- NOTE | 2017-12-23 08:50 | NUR ---
ADMINISTERED SCHEDULED MEDICATIONS. PATIENT TOLERATED WELL, NO DIFFICULTY SWALLOWING. PATIENT DID C/O JOINT PAIN AND WAS GIVEN PRN PAIN MEDICATION, ALL NEEDS MET AT THIS TIME.
--- NOTE | 2017-12-23 11:27 | NUR ---
PATIENT BS IS 114. NO INSULIN COVERAGE INDICATED. PATIENT SHOWS NO S/S OF ACUTE DISTRESS, ALL NEEDS MET AT THIS TIME.
[2017-12-23] MEDS ORDERED: NITR100C7 PO (12:04)
[2017-12-23] MEDS ORDERED: LACT10CA PO (12:04)
[2017-12-23] MEDS ORDERED: APR10 PO (12:04)
[2017-12-23] MEDS ORDERED: PANT40EC PO (12:04)
[2017-12-23] MEDS ORDERED: DOCU-463 PO (12:04)
[2017-12-23] MEDS ORDERED: SUCR1TAB56 PO (12:04)
[2017-12-23 12:14] VITALS: BP 161/50
--- NOTE | 2017-12-23 13:10 | NUR ---
PATIENT HAS BEEN DISCHARGED, ALL PAPERWORK SIGNED, ALL QUESTIONS ANSWERED, PATIENT VERBALIZED UNDERSTANDING OF CONTINUITY OF CARE. ALL BELONGINGS AND PRESCRIPTIONS IN PATIENT'S POSSESSION, IV DISCONTINUED WITH CANNULA INTACT, TELE BOX REMOVED, WRISTBANDS REMOVED. PATIENT LEFT UNIT IN WHEELCHAIR, PATIENT IN STABLE CONDITION.
== END 2017-12-23 13:10 | disposition home or self-care (01) | DRG 392 ==
LOC: MED 23:48 → MTU 12-20 02:58
PROVIDERS: ADMIT Student in an Organized Health Care Education/Training Program; ATTEND Student in an Organized Health Care Education/Training Program
PROC: 0DB68ZX Excision of Stomach, Via Natural or Artificial Opening Endoscopic, Diagnostic (ICD-10-PCS; principal; 2017-12-20)
PROC: 0DBM8ZZ Excision of Descending Colon, Via Natural or Artificial Opening Endoscopic (ICD-10-PCS; 2017-12-20)
PROC: 0DB78ZX Excision of Stomach, Pylorus, Via Natural or Artificial Opening Endoscopic, Diagnostic (ICD-10-PCS; 2017-12-20)
PROC: 0DDK8ZX Extraction of Ascending Colon, Via Natural or Artificial Opening Endoscopic, Diagnostic (ICD-10-PCS; 2017-12-20)
PROC: 0DBK8ZX Excision of Ascending Colon, Via Natural or Artificial Opening Endoscopic, Diagnostic (ICD-10-PCS; 2017-12-22 09:15)
DX: K29.70 Gastritis, unspecified, without bleeding (principal); E44.0 Moderate protein-calorie malnutrition; D68.59 Other primary thrombophilia; E66.01 Morbid (severe) obesity due to excess calories; E87.5 Hyperkalemia; E11.51 Type 2 diabetes mellitus with diabetic peripheral angiopathy without gangrene; Z68.43 Body mass index [BMI] 50.0-59.9, adult; N39.0 Urinary tract infection, site not specified; K21.0 Gastro-esophageal reflux disease with esophagitis; F32.9 Major depressive disorder, single episode, unspecified; D12.4 Benign neoplasm of descending colon; I25.10 Atherosclerotic heart disease of native coronary artery without angina pectoris; I11.0 Hypertensive heart disease with heart failure; I50.9 Heart failure, unspecified; K52.9 Noninfective gastroenteritis and colitis, unspecified; I70.209 Unspecified atherosclerosis of native arteries of extremities, unspecified extremity; K57.30 Diverticulosis of large intestine without perforation or abscess without bleeding; M19.90 Unspecified osteoarthritis, unspecified site; Z96.653 Presence of artificial knee joint, bilateral; D50.9 Iron deficiency anemia, unspecified; G47.30 Sleep apnea, unspecified; K63.5 Polyp of colon; Z90.710 Acquired absence of both cervix and uterus; Z90.49 Acquired absence of other specified parts of digestive tract; Z95.5 Presence of coronary angioplasty implant and graft; Z82.61 Family history of arthritis; Z82.49 Family history of ischemic heart disease and other diseases of the circulatory system
CPT/HCPCS: 36415; 71045; 80048; 80053; 81001; 82948; 83036; 83605; 83690; 83735; 83880; 84100; 84436; 84443; 84479; 84484; 85025; 85610; 85730; 87081; 93005; 93970; 96365; 96375; 99285; C9113; J0696; J1200; J1815; J1885; J2250; J2270; J2405; J2543; J3010; J7030; J7060; Q0092; Q9967

== ENCOUNTER 2018-03-08 16:16 | Emergency (ER) | payer OTHER ==
[~2018-03-08] VITALS: Ht 142.2 cm; Wt 108.9 kg
[~2018-03-08 16:16] MED LIST changes: -ACET-787 PO; +APR10 PO; -ASPI-1093 PO; +LACT10CA PO; -LORA0.5T6 PO; +NITR100C7 PO; +SUCR1TAB56 PO
[2018-03-08 16:21] VITALS: BP 154/62
[2018-03-08] MEDS ORDERED: CLON0.2T43 PO (16:34)
[2018-03-08] MEDS ORDERED: OMEP20TC12 PO (16:34)
[2018-03-08] MEDS ORDERED: FAMO-90 PO (16:34)
[2018-03-08] MEDS ORDERED: ATI.5 PO (16:34)
[2018-03-08] MEDS ORDERED: SUCR1SUS7 PO (16:34)
[2018-03-08] MEDS ORDERED: ACET-787 PO (16:34)
[2018-03-08] MEDS ORDERED: METO5SOL19 PO (16:34)
--- NOTE | 2018-03-08 16:37 | NUR ---
PT PLACED IN W/C AND PLACED IN LOBBY TO WAIT FOR NEXT AVAILABLE BED.
--- NOTE | 2018-03-08 16:54 | NUR ---
Patient transferred to bed 1 via wheelchair by tech. RN evaluating patient at bedside.
--- NOTE | 2018-03-08 16:55 | NUR ---
PT W/C ASSISTED TO BED 1.
--- NOTE | 2018-03-08 17:00 | NUR ---
PATIENT PRESENTS TO ED WITH COMPLAINTS OF EPIGASTRIC PAIN. PATIENT STATES IT STARTED 1 WEEK AGO WORSENING TODAY. DENIES V/D; SKIN IS PINK/WARM/DRY; AAOX4 WITH EVEN AND STEADY GAIT; LUNGS CLEAR BL; HR EVEN AND REGULAR; PT DENIES ANY FEVER, CP, SOB, OR COUGH AT THIS TIME; PATIENT STATES PAIN OF 7/10 AT THIS TIME; VSS; PATIENT POSITIONED FOR COMFORT; HOB ELEVATED; BEDRAILS UP X2; BED DOWN. ER MD MADE AWARE OF PT STATUS.
[2018-03-08] MEDS ORDERED: NACL 0.9% 1,000 ML IV ONE (17:52)
[2018-03-08] MEDS ORDERED: ONDANSETRON 4 MG/2 ML VIAL IVP ONE (17:55)
[2018-03-08] MEDS ORDERED: FAMOTIDINE 20 MG/2 ML VIAL IVP ONE (17:55)
[2018-03-08] MEDS ORDERED: MORPHINE SULFATE 2 MG/ML SYR IVP ONE (17:55)
[2018-03-08] MEDS ORDERED: ALUMINUM HYD/MAG/SIMETHICONE 30 ML, DICYCLOMINE HCL LIQUID 20 MG, LIDOCAINE VISCOUS 2% ... PO ONE ×3 (17:55)
[2018-03-08] MEDS ORDERED: METOCLOPRAMIDE 10 MG/2 ML INJ VIAL IVP ONE (17:55)
[2018-03-08 18:37] LABS: BASOPHILS % (AUTO) 0.5 % (0.0-2.0); EOSINOPHILS # (AUTO) 0.2 K/uL (0-0.4); EOSINOPHILS % (AUTO) 2.4 % (0.0-4.0); HEMATOCRIT 31.9 % (36-48); HEMOGLOBIN 10.1 g/dL (12.0-16.0); LYMPHOCYTES # (AUTO) 2.3 K/uL (2.5-16.5); LYMPHOCYTES % (AUTO) 31.4 % (20.5-51.1); MEAN CORPUSCULAR HEMOGLOBIN 25 pg (27-31); MEAN CORPUSCULAR HGB CONC 32 g/dL (33-37); MEAN CORPUSCULAR VOLUME 79.9 fL (80-94); MONOCYTES # (AUTO) 0.7 K/uL (0.8-1.0); MONOCYTES % (AUTO) 9.2 % (1.7-9.3); NEUTROPHILS # (AUTO) 4.2 K/uL (1.8-7.7); NEUTROPHILS % (AUTO) 56.5 % (42.2-75.2); PLATELET COUNT (AUTO) 234 K/uL (140-450); RED BLOOD CELL COUNT(AUTO) 3.99 MIL/uL (4.20-5.40); RED CELL DISTRIBUTION WIDTH 18.2 % (11.6-13.7); WHITE BLOOD COUNT (AUTO) 7.4 K/uL (4.8-10.8)
[2018-03-08 18:43] LABS: APPEARANCE,URINE CLEAR (CLEAR); BILIRUBIN,URINE NEGATIVE (NEGATIVE); BLOOD, URINE NEGATIVE (NEGATIVE); COLOR,URINE YELLOW (YELLOW); LEUKOCYTE ESTERASE ,URINE NEGATIVE (NEGATIVE); NITRITE, URINE NEGATIVE (NEGATIVE); UGLUCOSE NEGATIVE (NEGATIVE)
[2018-03-08 18:51] LABS: ANION GAP 7.7 (8-16); CARBON DIOXIDE 31.9 mmol/L (21-32); CHLORIDE 104 mmol/L (98-107); CREATININE 0.7 mg/dL (0.6-1.3); GLUCOSE 114 mg/dL (74-106); POTASSIUM 4.6 mmol/L (3.5-5.1); SODIUM SERUM 139 mmol/L (136-145); UREA NITROGEN, BLOOD 15 mg/dL (7-18)
[2018-03-08 18:57] LABS: AMYLASE 16 U/L (25-115); ASPARTATE AMINOTRANSFERASE 8 U/L (15-37); LIPASE 58 U/L (73-393); TOTAL BILIRUBIN 0.3 mg/dL (0.0-1.0)
--- NOTE | 2018-03-08 19:10 | NUR ---
Patient discharged with v/s stable. Written and verbal after care instructions given and explained. Patient alert, oriented and verbalized understanding of instructions. Ambulatory with steady gait. All questions addressed prior to discharge. ID band removed. Patient advised to follow up with PMD. Rx of REGLAN given. Patient educated on indication of medication including possible reaction and side effects. Opportunity to ask questions provided and answered.
[2018-03-08 19:23] VITALS: BP 170/49
== END 2018-03-08 19:10 | disposition home or self-care (01) ==
LOC: MED 16:16
DX: K21.9 Gastro-esophageal reflux disease without esophagitis (principal); K31.84 Gastroparesis; I50.9 Heart failure, unspecified; E11.9 Type 2 diabetes mellitus without complications; I10 Essential (primary) hypertension; Z79.899 Other long term (current) drug therapy
CPT/HCPCS: 36415; 80053; 81003; 82150; 83690; 85025; 93005; 96361; 96374; 96375; 99285; J2270; J2405; J2765; J3490; J7030

== ENCOUNTER 2018-05-04 07:20 | Emergency (ER) | payer OTHER ==
[~2018-05-04] VITALS: Ht 144.8 cm; Wt 113.4 kg
[~2018-05-04 07:20] MED LIST changes: +ACET-787 PO; -APR10 PO; +ATI.5 PO; -ATOR40TA40 PO; +CLON0.2T43 PO; +FAMO-90 PO; -FURO-572 PO; -ISOS20TA13 PO; -LACT10CA PO; -METH500T18 PO; +METO5SOL19 PO; -NITR100C7 PO; +OMEP20TC12 PO; -PANT40EC28 PO; -PREG100C PO; +SUCR1SUS7 PO; -SUCR1TAB56 PO
--- NOTE | 2018-05-04 07:29 | NUR ---
PT AMBULATES TO BED 11
--- NOTE | 2018-05-04 07:30 | NUR ---
PT PRESENTS TO ED WITH COMPLAINTS OF GASTRITIS AND DIARRHEA X 3 DAYS. PT HAS HX OF GASTRITIS AND STATES THIS IS A FLARE UP OF THAT. PATIENT REPORTS V/N/D, DENIES FEVER. PATIENT ASSISTED TO A BED, INTO A GOWN, AND PLACED ON THE MONITOR. SKIN IS PINK/WARM/DRY; AAOX4 WITH EVEN AND STEADY GAIT; PATIENT STATES PAIN OF 9/10 AT THIS TIME; VSS; PATIENT POSITIONED FOR COMFORT; HOB ELEVATED; BEDRAILS UP X1; BED DOWN. ER MD MADE AWARE OF PT STATUS.
[2018-05-04 07:34] VITALS: BP 169/66
[2018-05-04] MEDS ORDERED: LOPERAMIDE 2 MG CAP PO ONE (08:10)
[2018-05-04] MEDS ORDERED: MORPHINE SULFATE 4 MG/ML SYR IVP ONE (08:10)
[2018-05-04] MEDS ORDERED: ONDANSETRON 4 MG/2 ML VIAL IVP ONE (08:10)
[2018-05-04] MEDS ORDERED: NACL 0.9% 500 ML IV ONE (08:10)
--- NOTE | 2018-05-04 08:10 | NUR ---
Patient being evaluated by physician at bedside.
[2018-05-04 09:10] LABS: BASOPHILS % (AUTO) 0.1 % (0.0-2.0); EOSINOPHILS % (AUTO) 0.6 % (0.0-4.0); HEMATOCRIT 33.5 % (36-48); HEMOGLOBIN 10.7 g/dL (12.0-16.0); LYMPHOCYTES # (AUTO) 1.1 K/uL (2.5-16.5); LYMPHOCYTES % (AUTO) 14.3 % (20.5-51.1); MEAN CORPUSCULAR HEMOGLOBIN 26 pg (27-31); MEAN CORPUSCULAR HGB CONC 32 g/dL (33-37); MEAN CORPUSCULAR VOLUME 80.1 fL (80-94); MONOCYTES # (AUTO) 0.3 K/uL (0.8-1.0); MONOCYTES % (AUTO) 4.2 % (1.7-9.3); NEUTROPHILS # (AUTO) 6.4 K/uL (1.8-7.7); NEUTROPHILS % (AUTO) 80.8 % (42.2-75.2); PLATELET COUNT (AUTO) 244 K/uL (140-450); RED BLOOD CELL COUNT(AUTO) 4.18 MIL/uL (4.20-5.40); RED CELL DISTRIBUTION WIDTH 16.3 % (11.6-13.7)
[2018-05-04 09:53] LABS: BILIRUBIN,URINE NEGATIVE (NEGATIVE); BLOOD, URINE TRACE-L (NEGATIVE); COLOR,URINE YELLOW (YELLOW); LEUKOCYTE ESTERASE ,URINE NEGATIVE (NEGATIVE); NITRITE, URINE NEGATIVE (NEGATIVE); PH,URINE 6.5 (5.0-9.0); UGLUCOSE NEGATIVE (NEGATIVE)
[2018-05-04 09:54] LABS: APPEARANCE,URINE SLIGHTLY HAZY (CLEAR)
[2018-05-04 10:03] LABS: ANION GAP 11.6 (8-16); CARBON DIOXIDE 29.6 mmol/L (21-32); CHLORIDE 105 mmol/L (98-107); CREATININE 0.7 mg/dL (0.6-1.3); GLUCOSE 139 mg/dL (74-106); POTASSIUM 4.2 mmol/L (3.5-5.1); SODIUM SERUM 142 mmol/L (136-145); UREA NITROGEN, BLOOD 12 mg/dL (7-18)
[2018-05-04 10:07] LABS: RBC,URINE 0-5 (RARE) /HPF (0-5); WBC,URINE NONE SEEN /HPF (0-5)
[2018-05-04 10:18] LABS: ALBUMIN 3.3 g/dL (3.4-5.0); ASPARTATE AMINOTRANSFERASE 10 U/L (15-37); LIPASE 68 U/L (73-393); TOTAL BILIRUBIN 0.2 mg/dL (0.0-1.0)
[2018-05-04] MEDS ORDERED: ALUMINUM HYD/MAG/SIMETHICONE 30 ML UDC PO ONE (10:50)
[2018-05-04] MEDS ORDERED: LIDOCAINE VISCOUS 2% 20 ML UDC PO ONE (10:50)
[2018-05-04] MEDS ORDERED: DICYCLOMINE HCL LIQUID 10 MG/5 ML UDC PO ONE (10:50)
[2018-05-04 12:15] VITALS: BP 127/37
--- NOTE | 2018-05-04 12:15 | NUR ---
Patient discharged with v/s stable. Written and verbal after care instructions given and explained. Patient alert, oriented and verbalized understanding of instructions. Carried with steady gait. All questions addressed prior to discharge. ID band removed. Patient advised to follow up with PMD. Rx of zofran, cipro, flagyl, tramadol, omeprazole, imodium a-d given. Patient educated on indication of medication including possible reaction and side effects. Opportunity to ask questions provided and answered.
== END 2018-05-04 12:15 | disposition home or self-care (01) ==
LOC: MED 07:20
DX: K29.70 Gastritis, unspecified, without bleeding (principal); I50.9 Heart failure, unspecified; E11.9 Type 2 diabetes mellitus without complications; K21.9 Gastro-esophageal reflux disease without esophagitis; I11.0 Hypertensive heart disease with heart failure; Z79.899 Other long term (current) drug therapy; Z79.84 Long term (current) use of oral hypoglycemic drugs; Z90.49 Acquired absence of other specified parts of digestive tract
CPT/HCPCS: 36415; 80053; 81001; 82948; 83690; 84484; 85025; 93005; 96361; 96374; 96375; 99285; J2270; J2405; J7030; 99284

== ENCOUNTER 2018-06-25 21:23 | Emergency (ER) | payer OTHER ==
[~2018-06-25] VITALS: Ht 147.3 cm; Wt 108.9 kg
[2018-06-25 21:24] VITALS: BP 181/73
--- NOTE | 2018-06-25 21:32 | NUR ---
PT TAKEN TO BED 11
[2018-06-25] MEDS ORDERED: NACL 0.9% 1,000 ML IV ONE (21:40)
[2018-06-25] MEDS ORDERED: KETOROLAC 30 MG/ML VIAL IVP ONE (21:40)
--- NOTE | 2018-06-25 21:43 | NUR ---
PT TAKEN TO CT VIA NETO
--- NOTE | 2018-06-25 21:53 | NUR ---
PT RETURN FROM CT
--- NOTE | 2018-06-25 22:06 | NUR ---
Dr. Hughes evaluating patient at bedside.
--- NOTE | 2018-06-25 22:08 | NUR ---
PT PRESENTS TO ED WITH C/O JORDAN AND HTN X 3 DAYS. PT REPORTS HX OF HTN, DM, AND ARTHRITIS. PT REPORTS DIZZIES WITH NAUSEA X 3 DAYS. PT DENIES CHEST PAIN, SOB. PT CURRENTLY RESTING IN BED. ALL MONITORS PLACED. MD AT BEDSIDE FOR EXAM.
[2018-06-25] MEDS ORDERED: MECLIZINE 25 MG TAB PO ONE (22:10)
[2018-06-25 22:34] LABS: BASOPHILS % (AUTO) 0.3 % (0.0-2.0); EOSINOPHILS # (AUTO) 0.2 K/uL (0-0.4); EOSINOPHILS % (AUTO) 1.7 % (0.0-4.0); LYMPHOCYTES # (AUTO) 3.3 K/uL (2.5-16.5); LYMPHOCYTES % (AUTO) 33.9 % (20.5-51.1); MEAN CORPUSCULAR HEMOGLOBIN 25 pg (27-31); MEAN CORPUSCULAR HGB CONC 30 g/dL (33-37); MEAN CORPUSCULAR VOLUME 80.8 fL (80-94); MONOCYTES # (AUTO) 0.8 K/uL (0.8-1.0); MONOCYTES % (AUTO) 7.9 % (1.7-9.3); NEUTROPHILS # (AUTO) 5.5 K/uL (1.8-7.7); NEUTROPHILS % (AUTO) 56.2 % (42.2-75.2); RED BLOOD CELL COUNT(AUTO) 4.48 MIL/uL (4.20-5.40); RED CELL DISTRIBUTION WIDTH 16.9 % (11.6-13.7); WHITE BLOOD COUNT (AUTO) 9.9 K/uL (4.8-10.8)
[2018-06-25 22:49] LABS: ANION GAP 10.2 (8-16); CARBON DIOXIDE 30.5 mmol/L (21-32); CHLORIDE 101 mmol/L (98-107); GLUCOSE 138 mg/dL (74-106); POTASSIUM 4.7 mmol/L (3.5-5.1); SODIUM SERUM 137 mmol/L (136-145)
[2018-06-25 22:50] LABS: CREATININE 0.8 mg/dL (0.6-1.3); UREA NITROGEN, BLOOD 12 mg/dL (7-18)
[2018-06-25 22:51] LABS: PROTHROMBIN TIME 9.5 secs (10.8-13.4)
[2018-06-25 22:55] LABS: ASPARTATE AMINOTRANSFERASE 11 U/L (15-37); TOTAL BILIRUBIN 0.2 mg/dL (0.0-1.0)
[2018-06-25 22:56] LABS: ALBUMIN 3.3 g/dL (3.4-5.0)
[2018-06-25 22:57] LABS: PLATELET COUNT (AUTO) 81 K/uL (140-450)
[2018-06-26 00:08] VITALS: BP 201/49
--- NOTE | 2018-06-26 00:09 | NUR ---
Patient discharged with v/s stable. Written and verbal after care instructions given and explained. Patient alert, oriented and verbalized understanding of instructions. Ambulatory with steady gait. All questions addressed prior to discharge. ID band removed. Patient advised to follow up with PMD. Rx of MECLIZINE given. Patient educated on indication of medication including possible reaction and side effects. Opportunity to ask questions provided and answered.
== END 2018-06-26 00:09 | disposition home or self-care (01) ==
LOC: MED 21:23
DX: R42 Dizziness and giddiness (principal); R51 Headache; I10 Essential (primary) hypertension; K21.9 Gastro-esophageal reflux disease without esophagitis; I11.0 Hypertensive heart disease with heart failure; I50.9 Heart failure, unspecified; E11.9 Type 2 diabetes mellitus without complications; Z79.899 Other long term (current) drug therapy
CPT/HCPCS: 36415; 70450; 80053; 85025; 85610; 85730; 96361; 96374; 99285; J1885; J7030; J8597

== ENCOUNTER 2018-08-04 09:26 | Emergency (ER) | payer OTHER ==
[~2018-08-04] VITALS: Ht 144.8 cm; Wt 106.6 kg
[2018-08-04 09:35] VITALS: BP 143/56
[2018-08-04] MEDS ORDERED: BACITRACIN OINT 500 UNITS/GM PKT TP ONE (10:38)
[2018-08-04 10:41] VITALS: BP 143/56
== END 2018-08-04 10:42 | disposition home or self-care (01) ==
LOC: MED 09:26
DX: T24.111A Burn of first degree of right thigh, initial encounter (principal); E11.9 Type 2 diabetes mellitus without complications; K21.9 Gastro-esophageal reflux disease without esophagitis; I10 Essential (primary) hypertension; Z79.899 Other long term (current) drug therapy; Z79.84 Long term (current) use of oral hypoglycemic drugs; X12.XXXA Contact with other hot fluids, initial encounter; Y93.89 Activity, other specified; Y92.89 Other specified places as the place of occurrence of the external cause; Y99.8 Other external cause status
CPT/HCPCS: 16020; 99284

== ENCOUNTER 2018-08-13 22:42 | Emergency (ER) | payer OTHER ==
[~2018-08-13] VITALS: Ht 144.8 cm; Wt 110.7 kg
[2018-08-13 22:49] VITALS: BP 195/76
[2018-08-13] MEDS ORDERED: ONDANSETRON 4 MG ODT PO ONE (22:55)
[2018-08-13] MEDS ORDERED: MORPHINE SULFATE 4 MG/ML SYR IVP ONE (23:15)
[2018-08-13 23:38] LABS: BASOPHILS # (AUTO) 0.1 K/uL (0.00-0.22); BASOPHILS % (AUTO) 0.6 % (0.0-2.0); EOSINOPHILS # (AUTO) 0.2 K/uL (0-0.4); HEMOGLOBIN 9.9 g/dL (12.0-16.0); LYMPHOCYTES # (AUTO) 2.7 K/uL (2.5-16.5); LYMPHOCYTES % (AUTO) 27.3 % (20.5-51.1); MEAN CORPUSCULAR HEMOGLOBIN 26 pg (27-31); MEAN CORPUSCULAR HGB CONC 32 g/dL (33-37); MEAN CORPUSCULAR VOLUME 81.8 fL (80-94); MONOCYTES # (AUTO) 0.7 K/uL (0.8-1.0); MONOCYTES % (AUTO) 6.9 % (1.7-9.3); NEUTROPHILS # (AUTO) 6.3 K/uL (1.8-7.7); NEUTROPHILS % (AUTO) 63.2 % (42.2-75.2); PLATELET COUNT (AUTO) 264 K/uL (140-450); RED BLOOD CELL COUNT(AUTO) 3.79 MIL/uL (4.20-5.40); RED CELL DISTRIBUTION WIDTH 18.8 % (11.6-13.7); WHITE BLOOD COUNT (AUTO) 9.9 K/uL (4.8-10.8)
[2018-08-13 23:51] LABS: ANION GAP 8.5 (8-16); CHLORIDE 100 mmol/L (98-107); CREATININE 0.9 mg/dL (0.6-1.3); GLUCOSE 115 mg/dL (74-106); POTASSIUM 4.5 mmol/L (3.5-5.1); SODIUM SERUM 136 mmol/L (136-145); UREA NITROGEN, BLOOD 12 mg/dL (7-18)
[2018-08-13 23:55] LABS: PROTHROMBIN TIME 10.4 secs (10.8-13.4)
[2018-08-13 23:57] LABS: ASPARTATE AMINOTRANSFERASE 16 U/L (15-37); TOTAL BILIRUBIN 0.3 mg/dL (0.0-1.0)
[2018-08-14 00:10] LABS: APPEARANCE,URINE CLEAR (CLEAR); BILIRUBIN,URINE NEGATIVE (NEGATIVE); BLOOD, URINE NEGATIVE (NEGATIVE); COLOR,URINE STRAW (YELLOW); PH,URINE 6.5 (5.0-9.0); UGLUCOSE NEGATIVE (NEGATIVE)
[2018-08-14 00:11] LABS: LEUKOCYTE ESTERASE ,URINE NEGATIVE (NEGATIVE); NITRITE, URINE NEGATIVE (NEGATIVE)
[2018-08-14 00:35] VITALS: BP 142/35
== END 2018-08-14 00:35 | disposition home or self-care (01) ==
LOC: MED 22:42
DX: R51 Headache (principal); R11.0 Nausea; R07.9 Chest pain, unspecified; R07.89 Other chest pain; M54.2 Cervicalgia; I50.9 Heart failure, unspecified; I11.0 Hypertensive heart disease with heart failure; E11.9 Type 2 diabetes mellitus without complications; Z90.49 Acquired absence of other specified parts of digestive tract; Z90.710 Acquired absence of both cervix and uterus; Z79.84 Long term (current) use of oral hypoglycemic drugs; Z79.899 Other long term (current) drug therapy
CPT/HCPCS: 36415; 70450; 71045; 80053; 81003; 81025; 82948; 83880; 84484; 85025; 85610; 85730; 93005; 96374; 99285; J2270; Q0162

== ENCOUNTER 2019-01-27 09:39 | Emergency (ER) | payer OTHER ==
[~2019-01-27] VITALS: Ht 144.8 cm; Wt 110.7 kg
[~2019-01-27 09:39] MED LIST changes: -ACET-787 PO; -AMLO10TA2 PO; +AMLO10TA87 PO; -METO5SOL19 PO
[2019-01-27 09:58] VITALS: BP 143/93
--- NOTE | 2019-01-27 10:05 | NUR ---
PT AMBULATED TO BED 11
--- NOTE | 2019-01-27 10:10 | NUR ---
78 Y FEMALE BIB FAMILY C/O SUDDEN ONSET EPIGASTRIC ABDOMINAL PAIN 10/10, +NAUSEA, AND SOB X 5 DAYS. SOB EXACERBATED BY CHANGES IN POSITION AND EXERTION. LUNG SOUNDS CLEAR BILAT. DENIES DIARRHEA OR CONSTIPATION. ABDOMEN ROUND AND SOFT, BOWEL SOUNDS ACTIVE IN ALL 4 QUADRANTS. NO CHEST PAIN. NO URINARY COMPLAINTS. ACCUCHECK: 132. PT HR AT 42. AA0X4. BED IS DOWN, LOCKED, BED RAILX 1, ERMD TO SEE PT. HX: DIABETES, HEART MURMUR, HTN, ARTHRITIS, ANXIETY, DEPRESSION RX: VITAMIN D3, CLONIDINE, OMEPRAZOLE, CARAFATE, METFORMIN, LORAZEPAM, AMLODIPINE, NORCO, HYDRALAZINE, NITROGLYCERIN, ISOSORBIDE DINITRATE, ZOFRAN, PAROXETINE, OYSTER SHELL, POTASSIUM CHLORIDE,FUROSEMIDE, MECLIZINE, ASA
--- NOTE | 2019-01-27 10:12 | NUR ---
DR JUDD AT BEDSIDE
[2019-01-27] MEDS ORDERED: NACL 0.9% 1,000 ML IV SCH (10:17)
[2019-01-27] MEDS ORDERED: MORPHINE SULFATE 2 MG/ML SYR IVP ONE (10:20)
[2019-01-27] MEDS ORDERED: PANTOPRAZOLE 40 MG INJ VIAL IVP ONE (10:20)
[2019-01-27] MEDS ORDERED: ONDANSETRON 4 MG/2 ML VIAL IVP ONE (10:20)
[2019-01-27 10:35] LABS: BASOPHILS # (AUTO) 0.1 K/uL (0.00-0.22); BASOPHILS % (AUTO) 0.8 % (0.0-2.0); EOSINOPHILS # (AUTO) 0.1 K/uL (0-0.4); HEMOGLOBIN 10.8 g/dL (12.0-16.0); LYMPHOCYTES # (AUTO) 2.2 K/uL (2.5-16.5); LYMPHOCYTES % (AUTO) 29.5 % (20.5-51.1); MEAN CORPUSCULAR HEMOGLOBIN 27 pg (27-31); MEAN CORPUSCULAR HGB CONC 32 g/dL (33-37); MEAN CORPUSCULAR VOLUME 84.2 fL (80-94); MONOCYTES # (AUTO) 0.6 K/uL (0.8-1.0); MONOCYTES % (AUTO) 8.2 % (1.7-9.3); NEUTROPHILS # (AUTO) 4.4 K/uL (1.8-7.7); NEUTROPHILS % (AUTO) 59.5 % (42.2-75.2); PLATELET COUNT (AUTO) 300 K/uL (140-450); RED BLOOD CELL COUNT(AUTO) 4.03 MIL/uL (4.20-5.40); RED CELL DISTRIBUTION WIDTH 16.5 % (11.6-13.7); WHITE BLOOD COUNT (AUTO) 7.4 K/uL (4.8-10.8)
[2019-01-27 10:42] LABS: ANION GAP 6.9 (8-16); CARBON DIOXIDE 32.5 mmol/L (21-32); CHLORIDE 103 mmol/L (98-107); CREATININE 0.7 mg/dL (0.6-1.3); GLUCOSE 113 mg/dL (74-106); POTASSIUM 4.4 mmol/L (3.5-5.1); SODIUM SERUM 138 mmol/L (136-145); UREA NITROGEN, BLOOD 14 mg/dL (7-18)
[2019-01-27 10:47] LABS: ASPARTATE AMINOTRANSFERASE 16 U/L (15-37); LIPASE 76 U/L (73-393); TOTAL BILIRUBIN 0.3 mg/dL (0.0-1.0)
[2019-01-27] MEDS ORDERED: ALUMINUM HYD/MAG/SIMETHICONE 30 ML UDC PO ONE (11:25)
[2019-01-27] MEDS ORDERED: LIDOCAINE VISCOUS 2% 20 ML UDC PO ONE (11:25)
--- NOTE | 2019-01-27 11:40 | NUR ---
HR AT 53
[2019-01-27] MEDS ORDERED: MECL-272 PO (11:42)
[2019-01-27] MEDS ORDERED: FURO-572 PO (11:42)
[2019-01-27] MEDS ORDERED: ASPI-1718 PO (11:42)
[2019-01-27] MEDS ORDERED: LASIX PO (11:42)
[2019-01-27] MEDS ORDERED: HYDR-5092 PO (12:00)
[2019-01-27] MEDS ORDERED: ONDA4TAB PO (12:00)
[2019-01-27] MEDS ORDERED: ISOS20TA13 PO (12:00)
[2019-01-27] MEDS ORDERED: CALC500T37 PO (12:00)
[2019-01-27] MEDS ORDERED: AMLO10TA PO (12:00)
[2019-01-27] MEDS ORDERED: [UNRECOGNIZED DRUG - CODE] PO (12:00)
[2019-01-27] MEDS ORDERED: PREG100C PO (12:00)
[2019-01-27 12:11] VITALS: BP 142/93
== END 2019-01-27 12:11 | disposition home or self-care (01) ==
LOC: MED 09:39
DX: K29.70 Gastritis, unspecified, without bleeding (principal); I11.0 Hypertensive heart disease with heart failure; I50.9 Heart failure, unspecified; E11.9 Type 2 diabetes mellitus without complications; K21.9 Gastro-esophageal reflux disease without esophagitis; F41.9 Anxiety disorder, unspecified; Z79.82 Long term (current) use of aspirin; Z79.899 Other long term (current) drug therapy; Z79.84 Long term (current) use of oral hypoglycemic drugs; Z90.49 Acquired absence of other specified parts of digestive tract
CPT/HCPCS: 36415; 80053; 81002; 83690; 85025; 93005; 96361; 96374; 96375; 99283; C9113; J2270; J2405; J7030

== ENCOUNTER 2019-02-03 10:18 | Emergency (ER) | payer OTHER ==
[~2019-02-03] VITALS: Ht 144.8 cm; Wt 106.2 kg
[~2019-02-03 10:18] MED LIST changes: +AMLO10TA PO; +ASPI-1718 PO; +CALC500T37 PO; +FURO-572 PO; +HYDR-5092 PO; +ISOS20TA13 PO; +MECL-272 PO; +ONDA4TAB PO; +PREG100C PO; +[UNRECOGNIZED DRUG - CODE] PO
[2019-02-03 10:19] VITALS: BP 136/85
--- NOTE | 2019-02-03 10:25 | NUR ---
PT AMB WITH CANE TO BED 11.
--- NOTE | 2019-02-03 10:38 | NUR ---
PATIENT PRESENTS TO ED WITH accompanied by family c/o epigastric burning pain non radiating--provoked after eating heavy/fatty foods severe nausea--- pt states it feels exactly as before when relieved by gi cocktail bloated sensation DENIES N/V/D; SKIN IS PINK/WARM/DRY; AAOX4 WITH EVEN AND STEADY GAIT; LUNGS CLEAR BL; HR EVEN AND REGULAR; PT DENIES ANY FEVER, CP, SOB, OR COUGH AT THIS TIME; PATIENT STATES PAIN OF 10/10 AT THIS TIME; VSS; PATIENT POSITIONED FOR COMFORT; HOB ELEVATED; BEDRAILS UP X2; BED DOWN. ER MD MADE AWARE OF PT STATUS.
[2019-02-03] MEDS ORDERED: PANTOPRAZOLE 40 MG TABEC PO ONE (11:00)
[2019-02-03] MEDS ORDERED: LIDOCAINE VISCOUS 2% 20 ML UDC PO ONE (11:00)
[2019-02-03] MEDS ORDERED: ONDANSETRON 4 MG ODT PO ONE (11:00)
[2019-02-03] MEDS ORDERED: ALUMINUM HYD/MAG/SIMETHICONE 30 ML UDC PO ONE (11:00)
--- NOTE | 2019-02-03 12:02 | NUR ---
md at bedside; pt admits feeling better
[2019-02-03 12:13] VITALS: BP 138/52
== END 2019-02-03 12:14 | disposition home or self-care (01) ==
LOC: MED 10:18
DX: K29.70 Gastritis, unspecified, without bleeding (principal); R51 Headache; R06.02 Shortness of breath; I11.0 Hypertensive heart disease with heart failure; I50.9 Heart failure, unspecified; E11.9 Type 2 diabetes mellitus without complications; Z79.82 Long term (current) use of aspirin; Z79.84 Long term (current) use of oral hypoglycemic drugs; Z79.899 Other long term (current) drug therapy; Z79.891 Long term (current) use of opiate analgesic; Z90.49 Acquired absence of other specified parts of digestive tract; Z90.710 Acquired absence of both cervix and uterus; Z96.653 Presence of artificial knee joint, bilateral
CPT/HCPCS: 81002; 93005; 99284; Q0162

== ENCOUNTER 2019-04-26 09:11 | Emergency (ER) | payer OTHER ==
[~2019-04-26] VITALS: Ht 144.8 cm; Wt 108.9 kg
[2019-04-26 09:14] VITALS: BP 176/74
--- NOTE | 2019-04-26 09:20 | NUR ---
PATIENT AMBULATED TO ER BED 11.
--- NOTE | 2019-04-26 09:25 | NUR ---
PT BIB DAUGHTER TO ED, C/O EPIGASTRIC PAIN THAT DOES NOT RADIATE 07/09 X1DAY, C/O NAUSEA, NO V/D OR CONSTIPATION. LAST BOWEL MOVEMENT THIS AM. AAOX4, RR EVEN AND UNLABORED, ABD ROUND, SOFT TO TOUCH, IN NO DISTRESS, ED MD DR HUDSON MADE AWARE, WILL CONTINUE TO MONITOR CLOSELY, BED IN LOWEST POSITION. HX: HTN, DM.
[2019-04-26] MEDS ORDERED: RIVA20TA PO (09:34)
[2019-04-26] MEDS ORDERED: METO25TA PO (09:34)
[2019-04-26] MEDS ORDERED: VITD1000 PO (09:34)
[2019-04-26] MEDS ORDERED: CALC-575 PO (09:34)
[2019-04-26] MEDS ORDERED: LISI-420 PO (09:34)
[2019-04-26] MEDS ORDERED: ONDA4TAB PO (09:34)
[2019-04-26] MEDS ORDERED: MECL-272 PO (09:34)
[2019-04-26] MEDS ORDERED: HYDR100T79 PO (09:34)
[2019-04-26] MEDS ORDERED: GABA-636 PO (09:34)
[2019-04-26] MEDS ORDERED: FURO-570 PO (09:34)
[2019-04-26] MEDS ORDERED: NACL 0.9% 500 ML IV SCH (09:36)
[2019-04-26] MEDS ORDERED: ONDANSETRON 4 MG/2 ML VIAL IVP ONE (09:40)
[2019-04-26] MEDS ORDERED: PANTOPRAZOLE 40 MG INJ VIAL IVP ONE (09:40)
--- NOTE | 2019-04-26 09:45 | NUR ---
XRAY AT BEDSIDE.
--- NOTE | 2019-04-26 10:15 | NUR ---
PT TAKEN TO CT BY ACTIVITY MANAGER VIA NETO AT THIS TIME.
[2019-04-26 10:54] LABS: BASOPHILS % (AUTO) 0.6 % (0.0-2.0); EOSINOPHILS # (AUTO) 0.1 K/uL (0-0.4); EOSINOPHILS % (AUTO) 1.7 % (0.0-4.0); HEMATOCRIT 31.1 % (36-48); HEMOGLOBIN 9.8 g/dL (12.0-16.0); LYMPHOCYTES # (AUTO) 1.6 K/uL (2.5-16.5); LYMPHOCYTES % (AUTO) 20.7 % (20.5-51.1); MEAN CORPUSCULAR HEMOGLOBIN 25 pg (27-31); MEAN CORPUSCULAR HGB CONC 31 g/dL (33-37); MEAN CORPUSCULAR VOLUME 79.3 fL (80-94); MONOCYTES # (AUTO) 0.6 K/uL (0.8-1.0); MONOCYTES % (AUTO) 7.3 % (1.7-9.3); NEUTROPHILS # (AUTO) 5.5 K/uL (1.8-7.7); NEUTROPHILS % (AUTO) 69.7 % (42.2-75.2); PLATELET COUNT (AUTO) 295 K/uL (140-450); RED BLOOD CELL COUNT(AUTO) 3.92 MIL/uL (4.20-5.40); RED CELL DISTRIBUTION WIDTH 17.3 % (11.6-13.7)
[2019-04-26] MEDS ORDERED: ALUMINUM HYD/MAG/SIMETHICONE 30 ML UDC PO ONE (11:05)
[2019-04-26] MEDS ORDERED: LIDOCAINE VISCOUS 2% 20 ML UDC PO ONE (11:05)
[2019-04-26] MEDS ORDERED: DICYCLOMINE HCL LIQUID 10 MG/5 ML UDC PO ONE (11:05)
[2019-04-26 11:19] LABS: ALBUMIN 2.9 g/dL (3.4-5.0); ANION GAP 9.5 (8-16); ASPARTATE AMINOTRANSFERASE 17 U/L (15-37); CARBON DIOXIDE 33.1 mmol/L (21-32); CHLORIDE 103 mmol/L (98-107); CREATININE 0.8 mg/dL (0.6-1.3); GLUCOSE 113 mg/dL (74-106); POTASSIUM 4.6 mmol/L (3.5-5.1); SODIUM SERUM 141 mmol/L (136-145); TOTAL BILIRUBIN 0.2 mg/dL (0.0-1.0); UREA NITROGEN, BLOOD 21 mg/dL (7-18)
[2019-04-26 11:21] LABS: PROTHROMBIN TIME 9.7 secs (10.8-13.4)
[2019-04-26 11:35] LABS: APPEARANCE,URINE CLEAR (CLEAR); BILIRUBIN,URINE NEGATIVE (NEGATIVE); BLOOD, URINE NEGATIVE (NEGATIVE); COLOR,URINE YELLOW (YELLOW); LEUKOCYTE ESTERASE ,URINE TRACE (NEGATIVE); NITRITE, URINE NEGATIVE (NEGATIVE); UGLUCOSE NEGATIVE (NEGATIVE)
--- NOTE | 2019-04-26 11:40 | NUR ---
PT IN BED RESTING COMFORTABLY, IN NO ACUTE DISTRESS. WILL CONTINUE TO MONITOR CLOSELY.
[2019-04-26 11:46] LABS: RBC,URINE 0-5 /HPF (0-5); WBC,URINE 0-5 /HPF (0-5)
[2019-04-26 12:12] VITALS: BP 155/78
--- NOTE | 2019-04-26 12:12 | NUR ---
Patient discharged with v/s stable. Written and verbal after care instructions given and explained. Patient alert, oriented and verbalized understanding of instructions. Ambulatory with steady gait. All questions addressed prior to discharge. ID band removed. Patient advised to follow up with PMD. Rx of OMEPRAZOLE 40MG given. Patient educated on indication of medication including possible reaction and side effects. Opportunity to ask questions provided and answered.
== END 2019-04-26 12:12 | disposition home or self-care (01) ==
LOC: MED 09:11
DX: K29.70 Gastritis, unspecified, without bleeding (principal); K59.00 Constipation, unspecified; I11.0 Hypertensive heart disease with heart failure; E11.9 Type 2 diabetes mellitus without complications; I50.9 Heart failure, unspecified; Z79.899 Other long term (current) drug therapy; Z79.1 Long term (current) use of non-steroidal anti-inflammatories (NSAID); Z79.84 Long term (current) use of oral hypoglycemic drugs; Z79.891 Long term (current) use of opiate analgesic; K21.9 Gastro-esophageal reflux disease without esophagitis
CPT/HCPCS: 36415; 71045; 74176; 80053; 81001; 82948; 83605; 83880; 84484; 85025; 85610; 85730; 87040; 87086; 93005; 96374; 96375; 99284; C9113; J2405; J7030; Q0092

== ENCOUNTER 2019-07-19 20:33 | Inpatient (IN) | payer OTHER ==
[~2019-07-19] VITALS: Ht 144.8 cm; Wt 112.0 kg
[~2019-07-19 20:33] MED LIST changes: -AMLO10TA PO; -ASPI-1718 PO; +CALC-575 PO; -CALC500T37 PO; +FURO-570 PO; -FURO-572 PO; +GABA-636 PO; +HYDR100T79 PO; +LISI-420 PO; +METO25TA PO; +RIVA20TA PO; +VITD1000 PO
[2019-07-19 20:40] VITALS: BP 175/67
--- NOTE | 2019-07-19 20:52 | NUR ---
PT AMBULATED TO LOBBY ACCOMPANIED BY MOTHER IN LAW.
--- NOTE | 2019-07-19 22:00 | NUR ---
PT TAKEN TO BED 7
--- NOTE | 2019-07-19 22:41 | NUR ---
Dr. Hughes examining patient.
[2019-07-19] MEDS ORDERED: NACL 0.9% 500 ML IV SCH (22:55)
--- NOTE | 2019-07-19 23:15 | NUR ---
PT BIB DAUGHTER IN LAW FOR GEN. PAIN, AND HIGH BLOOD PRESSURE. PER PT SHE HAS HAD GEN. PAIN INCREASED FOR THE PAST WEEK. PT HAS HX OF ARTHRITIS. PT STATES SHE TOOK B/P AT HOME AND IT WAS HIGH. PT STATES SHE IS COMPLIANT WITH MEDICATIONS. PT AWAKE AND ALERT. PT NORMALLY HAS GEN. WEAKNESS.
--- NOTE | 2019-07-19 23:15 | NUR ---
LAB AT BEDSIDE.
--- NOTE | 2019-07-19 23:18 | NUR ---
EKG PERFORMED AT BEDSIDE
--- NOTE | 2019-07-19 23:20 | NUR ---
EMT AT BEDSIDE FOR EKG.
--- NOTE | 2019-07-19 23:24 | NUR ---
PT TO CT SCAN.
[2019-07-19 23:25] LABS: BASOPHILS % (AUTO) 0.2 % (0.0-2.0); EOSINOPHILS % (AUTO) 0.4 % (0.0-4.0); HEMATOCRIT 36.8 % (36-48); HEMOGLOBIN 11.9 g/dL (12.0-16.0); LYMPHOCYTES # (AUTO) 1.5 K/uL (2.5-16.5); LYMPHOCYTES % (AUTO) 14.3 % (20.5-51.1); MEAN CORPUSCULAR HEMOGLOBIN 27 pg (27-31); MEAN CORPUSCULAR HGB CONC 32 g/dL (33-37); MEAN CORPUSCULAR VOLUME 84.4 fL (80-94); MONOCYTES # (AUTO) 0.6 K/uL (0.8-1.0); NEUTROPHILS # (AUTO) 8.1 K/uL (1.8-7.7); NEUTROPHILS % (AUTO) 79.1 % (42.2-75.2); PLATELET COUNT (AUTO) 235 K/uL (140-450); RED BLOOD CELL COUNT(AUTO) 4.36 MIL/uL (4.20-5.40); WHITE BLOOD COUNT (AUTO) 10.3 K/uL (4.8-10.8)
--- NOTE | 2019-07-19 23:43 | NUR ---
PT RETURN FROM CT
[2019-07-19 23:44] LABS: ANION GAP 6.4 (8-16); CARBON DIOXIDE 34.4 mmol/L (21-32); CHLORIDE 102 mmol/L (98-107); CREATININE 0.6 mg/dL (0.6-1.3); GLUCOSE 114 mg/dL (74-106); POTASSIUM 4.8 mmol/L (3.5-5.1); SODIUM SERUM 138 mmol/L (136-145); UREA NITROGEN, BLOOD 12 mg/dL (7-18)
[2019-07-19 23:51] LABS: PROTHROMBIN TIME 10.2 secs (10.8-13.4)
[2019-07-19 23:53] LABS: RED CELL DISTRIBUTION WIDTH 22.4 % (11.6-13.7)
[2019-07-19 23:54] LABS: ALBUMIN 3.1 g/dL (3.4-5.0); ASPARTATE AMINOTRANSFERASE 14 U/L (15-37); TOTAL BILIRUBIN 0.3 mg/dL (0.0-1.0)
[2019-07-20 00:20] LABS: APPEARANCE,URINE CLEAR (CLEAR); BILIRUBIN,URINE NEGATIVE (NEGATIVE); BLOOD, URINE TRACE-L (NEGATIVE); COLOR,URINE YELLOW (YELLOW); LEUKOCYTE ESTERASE ,URINE TRACE (NEGATIVE); NITRITE, URINE NEGATIVE (NEGATIVE); PH,URINE 7.5 (5.0-9.0); UGLUCOSE NEGATIVE (NEGATIVE)
[2019-07-20] MEDS ORDERED: LEVOFLOXACIN 500 MG/D5W PREMIX 100 ML IV ONE (00:50)
--- NOTE | 2019-07-20 01:15 | NUR ---
PT RESTING IN BED VSS, NO NEW NEEDS AT THIS TIME.
[2019-07-20] MEDS ORDERED: ONDANSETRON 4 MG/2 ML VIAL IM/IVP PRN (01:20)
[2019-07-20] MEDS ORDERED: HYDROcodone/APAP 5/325 MG 1 TAB TAB PO PRN (01:20)
[2019-07-20] MEDS ORDERED: DOCUSATE SODIUM 100 MG GELCAP PO PRN (01:20)
[2019-07-20] MEDS ORDERED: LORazepam 2 MG/ML VIAL IM/IVP PRN (01:20)
[2019-07-20] MEDS ORDERED: MORPHINE SULFATE 2 MG/ML SYR IVP PRN ×2 (01:20→02:00)
[2019-07-20] MEDS ORDERED: ACETAMINOPHEN 325 MG TAB PO PRN (01:20)
[2019-07-20] MEDS ORDERED: ZOLPIDEM 5 MG TAB PO PRN (01:20)
[2019-07-20 01:52] LABS: MAGNESIUM 1.7 mg/dL (1.8-2.4); PHOSPHORUS 2.8 mg/dL (2.5-4.9); THYROID STIMULATING HORMONE 0.94 uIU/mL (0.34-3.74)
[2019-07-20] MEDS ORDERED: PREG100C PO (01:59)
[2019-07-20] MEDS ORDERED: CLON0.2T43 PO (01:59)
[2019-07-20] MEDS ORDERED: ASPI-1718 PO (01:59)
[2019-07-20] MEDS ORDERED: FERR325E14 PO (01:59)
[2019-07-20] MEDS ORDERED: METO-485 PO (01:59)
[2019-07-20] MEDS ORDERED: DULO30EC PO (01:59)
[2019-07-20] MEDS ORDERED: METOCLOPRAMIDE 10 MG TAB PO PRN (02:00)
[2019-07-20] MEDS ORDERED: cloNIDine 0.1 MG TAB PO PRN (02:00)
[2019-07-20] MEDS ORDERED: MELATONIN 3 MG TAB PO PRN (02:00)
[2019-07-20] MEDS ORDERED: ONDANSETRON 4 MG TAB PO SCH (02:00)
[2019-07-20] MEDS ORDERED: NITROGLYCERIN 0.4 MG TAB SL PRN (02:00)
[2019-07-20] MEDS ORDERED: LISINOPRIL 5 MG TAB PO SCH (02:30)
--- NOTE | 2019-07-20 02:40 | NUR ---
PT WHEELCHAIR ASSISTED TO BATHROOM, PT C/O DIARRHEA AND ABD PAIN, WILL MEDICATE PER ORDERS.
--- NOTE | 2019-07-20 03:10 | NUR ---
RECEIVED BEDSIDE REPORT FROM ED RN JOSE, FOR PT'S CONTINUITY OF CARE. PT IS AAOX4, MOSTLY CHINESE SPEAKING, HAS 2L O2 VIA NC, ON COLOR STRAINING BAG WASHER, HAS RIGHT AC 22G, C/O ABD PAIN 8/10, STATES MIGHT BE FROM DIARRHEA X 2 IN ED. FALL PREVENTION AND PRECAUTION IN PLACE, ASPIRATION PRECAUTION IN PLACE. EXPLAINED TO PT THE DIATHERMY EQUIPMENT REPAIRER ROUTINE, PT VERBALIZED UNDERSTANDING. WILL CONTINUE TO MONITOR PT THROUGHOUT SHIFT.
--- NOTE | 2019-07-20 03:26 | NUR ---
Patient will be admitted to care of DR RIOS. Admited to TELE. Will go to [id number]. Belongings list completed. Report to AZAEL STILES.
[2019-07-20] MEDS: NACL 0.9% 1,000 ML IV SCH ×2 (03:45→17:59)
[2019-07-20 04:00] VITALS: BP 153/46
[2019-07-20] MEDS ORDERED: metroNIDAZOLE 500 MG/NS PREMIX 100 ML IV SCH ×2 (04:00→13:00)
[2019-07-20] MEDS: HYDROcodone/APAP 10/325 MG 1 TAB TAB PO PRN ×2 (04:03→10:43)
--- NOTE | 2019-07-20 04:03 | NUR ---
ADMINISTERED SCHEDULED IV ABX, AND IV FLUID ORDERED. PT LYING DOWN, STILL C/O OF PAIN, ADMINISTERED PRN PO PAIN MEDICATION ORDERED. PT TOLERATED IT WELL. WILL CONTINUE TO MONITOR PT.
[2019-07-20] MEDS ORDERED: cefTRIAXone 1,000 MG VIAL ONE (05:26)
--- NOTE | 2019-07-20 05:30 | NUR ---
ADMINISTERED SCHEDULED IV ABX ORDERED. PT ASLEEP WITH NO SIGNS OF DISTRESS. WILL CONTINUE TO MONITOR PT.
[2019-07-20] MEDS: metFORMIN 500 MG TAB PO SCH (06:01)
--- NOTE | 2019-07-20 06:40 | NUR ---
PT LYING DOWN, STILL C/O ABDOMINAL PAIN OTHERWISE IN STABLE CONDITION. PT STILL HAS NO BM. WILL ENDORSE TO AM SHIFT RN FOR PT'S CONTINUITY OF CARE.
--- NOTE | 2019-07-20 07:28 | NUR ---
RECEIVED REPORT FROM PUMP TENDER RN. PT IS AAOX4, COOPERATIVE. PT SKIN INTACT. PT HAS RIGHT AC 22G INFUSING NS AT 60ML/HR. PT ON A CCHO 60GM DIET. PT FALL RISK DUE TO UNSTEADY GAIT. PT IS ON 2L O2 VIA NC. FECAL OCCULT BLOOD AND C-DIFF SAMPLES TAKEN AND SENT TO LAB. PT ON CONTACT PRECAUTION PENDING RESULTS. EXPLAINED POC TO PT. PT VERBALIZED UNDERSTANDING. BED IN LOW POSITION, CALL LIGHT WITHIN REACH. WILL ROUND FREQUENTLY ON PT.
[2019-07-20 07:44] LABS: BASOPHILS % (AUTO) 0.3 % (0.0-2.0); EOSINOPHILS % (AUTO) 0.4 % (0.0-4.0); HEMATOCRIT 35.1 % (36-48); HEMOGLOBIN 11.1 g/dL (12.0-16.0); LYMPHOCYTES # (AUTO) 1.2 K/uL (2.5-16.5); LYMPHOCYTES % (AUTO) 12.5 % (20.5-51.1); MEAN CORPUSCULAR HEMOGLOBIN 27 pg (27-31); MEAN CORPUSCULAR HGB CONC 32 g/dL (33-37); MEAN CORPUSCULAR VOLUME 85.1 fL (80-94); MONOCYTES # (AUTO) 0.5 K/uL (0.8-1.0); MONOCYTES % (AUTO) 5.5 % (1.7-9.3); NEUTROPHILS # (AUTO) 7.5 K/uL (1.8-7.7); NEUTROPHILS % (AUTO) 81.3 % (42.2-75.2); PLATELET COUNT (AUTO) 213 K/uL (140-450); RED BLOOD CELL COUNT(AUTO) 4.13 MIL/uL (4.20-5.40); RED CELL DISTRIBUTION WIDTH 22.2 % (11.6-13.7); WHITE BLOOD COUNT (AUTO) 9.3 K/uL (4.8-10.8)
[2019-07-20] MEDS ORDERED: PANTOPRAZOLE 40 MG TABEC PO SCH (08:00)
[2019-07-20 08:22] LABS: CHOL/HDL RATIO 2.4 (1-4.5)
[2019-07-20 08:35] LABS: ANION GAP 9.3 (8-16); CARBON DIOXIDE 31.2 mmol/L (21-32); CHLORIDE 103 mmol/L (98-107); CREATININE 0.6 mg/dL (0.6-1.3); GLUCOSE 117 mg/dL (74-106); MAGNESIUM 1.7 mg/dL (1.8-2.4); PHOSPHORUS 3.4 mg/dL (2.5-4.9); POTASSIUM 4.5 mmol/L (3.5-5.1); SODIUM SERUM 139 mmol/L (136-145); UREA NITROGEN, BLOOD 9 mg/dL (7-18)
[2019-07-20] MEDS ORDERED: [UNRECOGNIZED DRUG - OTHER] PO SCH (09:00)
[2019-07-20] MEDS ORDERED: ASCORBATE SODIUM PO SCH (09:00)
[2019-07-20] MEDS ORDERED: MECLIZINE 25 MG TAB PO SCH (09:00)
[2019-07-20] MEDS ORDERED: MAGNESIUM OXIDE 400 MG TAB PO SCH (09:00)
[2019-07-20] MEDS ORDERED: PARoxetine 20 MG TAB PO SCH (09:00)
[2019-07-20] MEDS ORDERED: SUCRALFATE PO SCH (09:00)
[2019-07-20] MEDS ORDERED: LISINOPRIL 20 MG TAB PO SCH (09:00)
[2019-07-20] MEDS ORDERED: NON-FORMULARY ITEM (Omeprazole (Omeprazole) 40 MG) PO SCH (09:00)
[2019-07-20] MEDS ORDERED: ASCORBIC ACID PO SCH (09:00)
[2019-07-20] MEDS ORDERED: NON-FORMULARY ITEM (Hydralazine HCl (Hydralazine Hydrochloride) 25 MG) PO SCH (09:00)
--- NOTE | 2019-07-20 09:47 | NUR ---
ADMINISTERED MORNING MEDS TO PT. PT TOLERATED WELL. ADMINISTERED NORCO 10MG FOR PAIN OF 03/09. PT REPORTED THAT DIARRHEA HAS STOPPED. ACCORDING TO SENIOR GRADUATE ADVISOR PT HAD 4 EPISODES OF DIARRHEA. PT HAD 3 THIS MORNING ON MY SHIFT. WILL CONTINUE TO ROUND FREQUENTLY ON PT. BED IN LOW POSITION, CALL LIGHT WITHIN REACH.
[2019-07-20] MEDS: FERROUS SULFATE 325 MG TABEC PO SCH ×2 (10:44→13:22)
[2019-07-20] MEDS: LISINOPRIL 20 MG TAB PO SCH (10:44)
[2019-07-20] MEDS: LACTOBACILLUS RHAMNOSUS GG 1 EACH CAP PO SCH (10:44)
[2019-07-20] MEDS: CALCIUM CARBONATE 500 MG TAB PO SCH (10:45)
[2019-07-20] MEDS: FUROSEMIDE 40 MG TAB PO SCH ×2 (10:45→21:12)
[2019-07-20] MEDS: hydrALAZINE 25 MG TAB PO SCH ×2 (10:45→21:10)
[2019-07-20] MEDS: ASPIRIN 81 MG TAB.CHEW PO SCH (10:46)
[2019-07-20] MEDS: METOPROLOL 25 MG TAB PO SCH ×2 (10:46→21:11)
[2019-07-20] MEDS: PREGABALIN 50 MG CAP PO SCH ×2 (10:46→21:09)
[2019-07-20] MEDS: DULoxetine 30 MG CAPDR PO SCH ×2 (10:47→21:11)
[2019-07-20] MEDS ORDERED: DEXTROSE 50% 50 ML SYR IVP PRN (11:45)
[2019-07-20] MEDS ORDERED: INSULIN LISPRO SLIDING SCALE 100 UNITS/ML VIAL SUBQ PRN (11:45)
--- NOTE | 2019-07-20 11:47 | NUR ---
PT RESTING IN BED WITH FAMILY AT BEDSIDE. ALL NEEDS MET. WILL CONTINUE TO ROUND FREQUENTLY ON PT.
--- NOTE | 2019-07-20 13:18 | NUR ---
PATIENT HAS BEEN SCREENED AND CATEGORIZED HIGH NUTRITION RISK. PATIENT WILL BE SEEN WITHIN 1-2 DAYS OF ADMISSION. 07/20/19-07/21/[address]
--- NOTE | 2019-07-20 13:47 | NUR ---
STARTED PT FLAGYL AND PT BEGAN TO COMPLAIN OF ABD PAIN AND HAD EPISODE OF DIARRHEA. MD NOTIFIED AND PER , , FLAGYL TO BE STOPPED AND SHE WILL ORDER DIFFERENT ABX THERAPY.
[2019-07-20 13:58] VITALS: BP 145/48
--- NOTE | 2019-07-20 14:31 | NUR ---
ATTEMPTED TO DO ECHO AT 14:15. PATIENT COMPLAINED OF ABDOMINAL PAIN. REQUESTED TO GET THE ECHO DONE AT A LATER TIME. NOTIFIED RN. GARCIA
--- NOTE | 2019-07-20 15:47 | NUR ---
PT RESTING IN BED. NO COMPLAINTS OF PAIN AT THIS TIME. WILL CONTINUE TO ROUND FREQUENTLY ON PT.
[2019-07-20 16:00] VITALS: BP 161/54
[2019-07-20] MEDS ORDERED: SUCRALFATE 1 GM TAB PO SCH (16:30)
--- NOTE | 2019-07-20 16:30 | NUR ---
ENDORSED PT TO [facility] RN FOR CONTINUITY OF CARE. PT IN STABLE CONDITION AT THIS TIME.
--- NOTE | 2019-07-20 16:30 | NUR ---
RECEIVED PATIENT FROM AZAEL GARCIA. PATIENT IS RESTING QUIETLY IN BED. PT IS CURRENTLY ON ROOM AIR, AAOX4. PATIENT HAS A BEDSIDE COMMODE. PATIENT HAD X6 EPISODES OF DIARRHEA TODAY. WILL CONTINUE WITH PLAN OF CARE.
[2019-07-20] MEDS ORDERED: SENNA 8.6 MG TAB PO SCH (17:00)
[2019-07-20] MEDS: BLOOD GLUCOSE MONITORING 1 DEV DEV FS SCH ×2 (17:27→21:22)
[2019-07-20] MEDS: SUCRALFATE 1 GM TAB PO SCH (17:28)
--- NOTE | 2019-07-20 19:30 | NUR ---
RECEIVED BEDSIDE REPORT FROM AM NURSE. PT IS IN STABLE CONDITION LAYING IN BED COMFORTABLY. AOX4. ON TELE MONITOR. NO SIGNS OF SOB OR RESPIRATORY DISTRESS NOTED. ON 2L VIA NASAL CANNULA. PT AMBULATORY WITH STAND-BY ASSISTANCE. IV ACCESS ON RIGHT AC, 22 GAUGE, PATENT AND INTACT. BOARD UPDATED. CALL LIGHT WITHIN PT REACH. WILL CONTINUE TO MONITOR
[2019-07-20 20:10] VITALS: BP 148/87
[2019-07-20] MEDS: PIPERACILLIN/TAZOBACTAM 3.375 GM in DEXTROSE 5% 50 ML IV SCH (21:09)
--- NOTE | 2019-07-20 22:00 | NUR ---
ROUNDS DONE. PT SLEEPING COMFORTABLY IN BED. VISIBLE CHEST RISE AND FALL NOTED. WILL CONTINUE TO MONITOR.
--- NOTE | 2019-07-21 00:15 | NUR ---
VITAL SIGNS TAKEN. PT ASLEEP. NO SIGNS OF DISTRESS. WILL CONTINUE TO MONITOR.
[2019-07-21 00:20] VITALS: BP 167/56
[2019-07-21] MEDS: NACL 0.9% 1,000 ML IV SCH ×2 (00:34→23:37)
--- NOTE | 2019-07-21 02:07 | NUR ---
ROUNDS DONE. PT ASLEEP. VISIBLE CHEST RISE AND FALL NOTED. WILL CONTINUE TO MONITOR.
--- NOTE | 2019-07-21 03:50 | NUR ---
PT ASSISTED TO RESTROOM AT THIS TIME.
--- NOTE | 2019-07-21 04:15 | NUR ---
VITAL SIGNS TAKEN. NO DISTRESS OR SOB NOTED. WILL CONTINUE TO MONITOR.
[2019-07-21] MEDS: PIPERACILLIN/TAZOBACTAM 3.375 GM in DEXTROSE 5% 50 ML IV SCH ×3 (04:45→20:57)
[2019-07-21 04:47] VITALS: BP 158/76
--- NOTE | 2019-07-21 05:38 | NUR ---
NO DIARRHEA NOTED DURING SHIFT.
[2019-07-21 06:30] LABS: BASOPHILS # (AUTO) 0.1 K/uL (0.00-0.22); BASOPHILS % (AUTO) 0.8 % (0.0-2.0); EOSINOPHILS # (AUTO) 0.2 K/uL (0-0.4); EOSINOPHILS % (AUTO) 2.8 % (0.0-4.0); HEMATOCRIT 36.3 % (36-48); HEMOGLOBIN 11.6 g/dL (12.0-16.0); LYMPHOCYTES # (AUTO) 1.7 K/uL (2.5-16.5); LYMPHOCYTES % (AUTO) 23.3 % (20.5-51.1); MEAN CORPUSCULAR HEMOGLOBIN 27 pg (27-31); MEAN CORPUSCULAR HGB CONC 32 g/dL (33-37); MEAN CORPUSCULAR VOLUME 85.1 fL (80-94); MONOCYTES # (AUTO) 0.7 K/uL (0.8-1.0); MONOCYTES % (AUTO) 9.2 % (1.7-9.3); NEUTROPHILS # (AUTO) 4.6 K/uL (1.8-7.7); NEUTROPHILS % (AUTO) 63.9 % (42.2-75.2); PLATELET COUNT (AUTO) 229 K/uL (140-450); RED BLOOD CELL COUNT(AUTO) 4.27 MIL/uL (4.20-5.40); RED CELL DISTRIBUTION WIDTH 22.3 % (11.6-13.7); WHITE BLOOD COUNT (AUTO) 7.2 K/uL (4.8-10.8)
--- NOTE | 2019-07-21 06:30 | NUR ---
BLOOD SUGAR THIS AM 97. NO INSULIN NEEDED.
[2019-07-21] MEDS: BLOOD GLUCOSE MONITORING 1 DEV DEV FS SCH ×4 (06:33→21:06)
[2019-07-21] MEDS: metFORMIN 500 MG TAB PO SCH (06:33)
[2019-07-21 06:37] LABS: ANION GAP 9.4 (8-16); CHLORIDE 102 mmol/L (98-107); CREATININE 0.7 mg/dL (0.6-1.3); GLUCOSE 103 mg/dL (74-106); POTASSIUM 3.4 mmol/L (3.5-5.1); SODIUM SERUM 143 mmol/L (136-145); UREA NITROGEN, BLOOD 7 mg/dL (7-18)
[2019-07-21] MEDS: HYDROcodone/APAP 10/325 MG 1 TAB TAB PO PRN ×2 (06:40→23:40)
[2019-07-21 07:03] LABS: MAGNESIUM 1.4 mg/dL (1.8-2.4); PHOSPHORUS 3.9 mg/dL (2.5-4.9)
[2019-07-21 07:07] LABS: T4 (THYROXINE) 8.4 ug/dL (4.5-12.0)
--- NOTE | 2019-07-21 07:25 | NUR ---
ENDORSED PT IN STABLE CONDITION TO AM NURSE FOR CONTINUITY OF CARE.
--- NOTE | 2019-07-21 07:26 | NUR ---
RECEIVED BEDSIDE REPORT FROM WASTEWATER TREATMENT PLANT OPERATOR NURSE. PATIENT IS AWAKE, ALERT AND ORIENTEDX4. NO SIGNS OF DISTRESS ON RA. SKIN IS INTACT. IV ON R AC 22G INFUSING NS AT 60. CLEAN, DRY AND INTACT. TELE MONITOR IN PLACE. PATIENT HAS WEAKNESS, FALL RISK PROTOCOL IN PLACE. CALL LIGHT WITHIN REACH. WILL CONTINUE TO MONITOR THE PATIENT.
[2019-07-21 08:00] VITALS: BP 167/51
[2019-07-21] MEDS: PREGABALIN 50 MG CAP PO SCH ×2 (08:37→20:56)
[2019-07-21] MEDS: CALCIUM CARBONATE 500 MG TAB PO SCH (08:38)
[2019-07-21] MEDS: SUCRALFATE 1 GM TAB PO SCH ×3 (08:38→18:14)
[2019-07-21] MEDS: FUROSEMIDE 40 MG TAB PO SCH ×2 (08:38→20:56)
[2019-07-21] MEDS: LISINOPRIL 20 MG TAB PO SCH (08:39)
[2019-07-21] MEDS: ASPIRIN 81 MG TAB.CHEW PO SCH (08:39)
[2019-07-21] MEDS: DULoxetine 30 MG CAPDR PO SCH ×2 (08:40→20:56)
[2019-07-21] MEDS: LACTOBACILLUS RHAMNOSUS GG 1 EACH CAP PO SCH (08:40)
[2019-07-21] MEDS: hydrALAZINE 25 MG TAB PO SCH ×2 (08:40→20:58)
--- NOTE | 2019-07-21 08:54 | NUR ---
ADMINISTERED MEDS. PATIENT TOLERATED WELL. EDUCATED ON SIDE EFFECTS. PATIENT WENT TO THE AND GOT DIZZY. TOLD PATIENT THE IMPORTANCE OF USING THE BEDSIDE COMMODE TO PREVENT FALLS AND TOLD HER TO CALL FOR ASSISTANCE.
[2019-07-21] MEDS ORDERED: POLYETHYLENE GLYCOL 17 GM/PKT PO SCH (09:00)
[2019-07-21] MEDS ORDERED: POTASSIUM CHLORIDE 10 MEQ TABER PO SCH (09:30)
[2019-07-21] MEDS ORDERED: MAG SULF 2000 MG/WATER PREMIX 50 ML IV SCH (09:30)
--- NOTE | 2019-07-21 10:00 | NUR ---
PATIENT IN NO DISTRESS. WILL CONTINUE TO MONITOR THE PATIENT
[2019-07-21 11:57] VITALS: BP 139/78
--- NOTE | 2019-07-21 12:00 | NUR ---
PATIENT WATCHING TV. NO SIGNS OF DISTRESS. WILL CONTINUE TO MONITOR
--- NOTE | 2019-07-21 14:00 | NUR ---
ADMINISTERED MEDS. PATIENT TOLERATED WELL. EDUCATED ON SIDE EFFECTS. SON AT BEDSIDE
--- NOTE | 2019-07-21 14:01 | NUR ---
07/21/19 RD INITIAL ASSESSMENT COMPLETED PLEASE REFER TO NUTRITION ASSESSMENT UNDER CARE ACTIVITY FOR ESTIMATED NUTRITIONAL NEEDS. 1. CONTINUE CCHO 60GM DIET TOLERATED 2. ENCOURAGE INCREASING PO INTAKE 3. RD TO FOLLOW-UP 5-7 DAYS, LOW RISK CUCA OBREGON, RD
[2019-07-21 16:00] VITALS: BP 166/58
--- NOTE | 2019-07-21 16:00 | NUR ---
PATIENT LAYING IN BED. NO DISTREss
--- NOTE | 2019-07-21 18:15 | NUR ---
ADMINISTERED MEDS. PATIENT TOLERATED WELL. ON BEDSIDE COMMODE
--- NOTE | 2019-07-21 19:05 | NUR ---
GAVE BEDSIDE REPORT TO SUPPLIER QUALITY ENGINEER NURSE. PATIENT ENDORSED IN STABLE CONDITION
--- NOTE | 2019-07-21 19:06 | NUR ---
Received endorsement from AM shift RN. Patient A/Ox4, able to make needs known. Amharic speaking but can understand Indonesian. Ambulatory but noted with bedside commode. Patient talking with family members; introduced self, updated board. No SOB or distress noted. On Room Air. IV site noted on Right antecubital 22G running IVF at 60ml/hr. Bed in the lowest position. Call light within reach. Initial assessment done. Will continue to monitor.
--- NOTE | 2019-07-21 21:05 | NUR ---
Received a call from lab at [facility]; stated patient has gram (+) cocci in clusters but no organisms noted. Dr. Conner made aware.
--- NOTE | 2019-07-21 21:22 | NUR ---
Due meds given, tolerated well.
--- NOTE | 2019-07-21 23:50 | NUR ---
Vitals taken. no distress noted. Patient resting comfortably. Visible chest rise and fall noted.
[2019-07-22] VITALS: BP 153/60
--- NOTE | 2019-07-22 01:19 | NUR ---
Rounds done. Patient asleep, eyes closed. Visible chest rise and fall noted.
--- NOTE | 2019-07-22 03:30 | NUR ---
Checks made. Resident asleep at this time. Visible chest rise and fall noted.
[2019-07-22] MEDS: PIPERACILLIN/TAZOBACTAM 3.375 GM in DEXTROSE 5% 50 ML IV SCH (04:08)
--- NOTE | 2019-07-22 04:30 | NUR ---
Due meds given. Patient asleep. No apparent distress noted.
[2019-07-22] MEDS: BLOOD GLUCOSE MONITORING 1 DEV DEV FS SCH ×2 (05:59→11:55)
[2019-07-22] MEDS: metFORMIN 500 MG TAB PO SCH (05:59)
--- NOTE | 2019-07-22 06:02 | NUR ---
Made Dr. Galdamez aware of glucose level of 95; stated to hold Metformin AM dose. Carried out.
--- NOTE | 2019-07-22 06:17 | NUR ---
Vitals stable. Due medications given. Will endorse to AM shift RN for continuity of care.
[2019-07-22 06:22] LABS: BASOPHILS % (AUTO) 0.6 % (0.0-2.0); EOSINOPHILS # (AUTO) 0.3 K/uL (0-0.4); EOSINOPHILS % (AUTO) 4.6 % (0.0-4.0); HEMATOCRIT 37.6 % (36-48); LYMPHOCYTES # (AUTO) 2.5 K/uL (2.5-16.5); LYMPHOCYTES % (AUTO) 40.1 % (20.5-51.1); MEAN CORPUSCULAR HEMOGLOBIN 27 pg (27-31); MEAN CORPUSCULAR HGB CONC 32 g/dL (33-37); MEAN CORPUSCULAR VOLUME 84.8 fL (80-94); MONOCYTES # (AUTO) 0.7 K/uL (0.8-1.0); MONOCYTES % (AUTO) 11.3 % (1.7-9.3); NEUTROPHILS # (AUTO) 2.7 K/uL (1.8-7.7); NEUTROPHILS % (AUTO) 43.4 % (42.2-75.2); PLATELET COUNT (AUTO) 242 K/uL (140-450); RED BLOOD CELL COUNT(AUTO) 4.44 MIL/uL (4.20-5.40); RED CELL DISTRIBUTION WIDTH 21.9 % (11.6-13.7); WHITE BLOOD COUNT (AUTO) 6.2 K/uL (4.8-10.8)
[2019-07-22 06:31] LABS: ANION GAP 8.5 (8-16); CARBON DIOXIDE 36.9 mmol/L (21-32); CHLORIDE 100 mmol/L (98-107); CREATININE 0.9 mg/dL (0.6-1.3); GLUCOSE 93 mg/dL (74-106); POTASSIUM 3.4 mmol/L (3.5-5.1); SODIUM SERUM 142 mmol/L (136-145); UREA NITROGEN, BLOOD 9 mg/dL (7-18)
[2019-07-22 06:39] LABS: MAGNESIUM 1.6 mg/dL (1.8-2.4); PHOSPHORUS 4.5 mg/dL (2.5-4.9)
[2019-07-22] MEDS ORDERED: POTASSIUM CHLORIDE 10 MEQ TABER PO SCH ×2 (07:00→11:00)
--- NOTE | 2019-07-22 07:26 | NUR ---
RECEIVED HAND OFF REPORT FROM PM RN PT APPEARS STABLE AND IN NO APPARENT DISTRESS. ALL SAFETY MEASURES ARE IN PLACE WILL CONTINUE TO MONITOR
[2019-07-22] MEDS: hydrALAZINE 25 MG TAB PO SCH (09:50)
[2019-07-22] MEDS: ASPIRIN 81 MG TAB.CHEW PO SCH (09:50)
[2019-07-22] MEDS: CALCIUM CARBONATE 500 MG TAB PO SCH (09:51)
[2019-07-22] MEDS: DULoxetine 30 MG CAPDR PO SCH (09:51)
[2019-07-22] MEDS: SUCRALFATE 1 GM TAB PO SCH (09:51)
[2019-07-22] MEDS: LISINOPRIL 20 MG TAB PO SCH (09:51)
[2019-07-22] MEDS: HYDROcodone/APAP 10/325 MG 1 TAB TAB PO PRN (09:51)
[2019-07-22] MEDS: FUROSEMIDE 40 MG TAB PO SCH (09:51)
[2019-07-22] MEDS: LACTOBACILLUS RHAMNOSUS GG 1 EACH CAP PO SCH (09:52)
--- NOTE | 2019-07-22 10:01 | NUR ---
UNABLE TO ADMINISTER LYRICA AT THIS TIME BOTH MS AND TELE PYXIS NOT STOCKED. CALLED AND NOTIFIED PHARMACY
[2019-07-22] MEDS ORDERED: LACT10CA1 PO (10:39)
[2019-07-22] MEDS ORDERED: NITR100C7 PO (10:39)
[2019-07-22] MEDS ORDERED: LISI-420 PO (10:43)
[2019-07-22] MEDS: PREGABALIN 50 MG CAP PO SCH (10:56)
[2019-07-22] MEDS ORDERED: MAGNESIUM OXIDE 400 MG TAB PO SCH (11:00)
[2019-07-22 11:37] VITALS: BP 152/59
--- NOTE | 2019-07-22 12:20 | NUR ---
REVIEWED DISCHARGE INSTRUCTIONS PROVIDED DISCHARGE PACKET. INFORMED PT TO DISTRIBUTION OPERATION SUPERVISOR HER NEW PRESCRIPTIONS AT HER PREFERRED PHARMACY. REMOVED IV. REMOVED ID BAND. GAVE PATIENT ALL HER HOME MEDICATIONS FROM PHARMACY. ANSWERED ALL QUESTIONS. PT DAUGHTER AT BEDSIDE. ALL SAFETY MEASURES IN PLACE PT LEFT VIA WHEELCHAIR. PT LEFT WITH ALL PERSONAL BELONGINGS.
== END 2019-07-22 12:20 | disposition home or self-care (01) | DRG 689 ==
LOC: MED 20:33 → MMU 07-20 01:19
PROVIDERS: ADMIT General Practice; ATTEND General Practice
DX: N12 Tubulo-interstitial nephritis, not specified as acute or chronic (principal); I50.43 Acute on chronic combined systolic (congestive) and diastolic (congestive) heart failure; E44.1 Mild protein-calorie malnutrition; Z68.43 Body mass index [BMI] 50.0-59.9, adult; K52.9 Noninfective gastroenteritis and colitis, unspecified; I25.10 Atherosclerotic heart disease of native coronary artery without angina pectoris; K57.90 Diverticulosis of intestine, part unspecified, without perforation or abscess without bleeding; M19.90 Unspecified osteoarthritis, unspecified site; Z96.653 Presence of artificial knee joint, bilateral; E11.65 Type 2 diabetes mellitus with hyperglycemia; E86.0 Dehydration; I11.0 Hypertensive heart disease with heart failure; G89.4 Chronic pain syndrome; K21.9 Gastro-esophageal reflux disease without esophagitis; F32.9 Major depressive disorder, single episode, unspecified; D50.9 Iron deficiency anemia, unspecified; M85.80 Other specified disorders of bone density and structure, unspecified site; E66.01 Morbid (severe) obesity due to excess calories; E87.6 Hypokalemia; E83.42 Hypomagnesemia; R42 Dizziness and giddiness; Z79.82 Long term (current) use of aspirin; Z82.61 Family history of arthritis; Z79.899 Other long term (current) drug therapy; Z90.49 Acquired absence of other specified parts of digestive tract; Z90.710 Acquired absence of both cervix and uterus; Z95.5 Presence of coronary angioplasty implant and graft; Z82.49 Family history of ischemic heart disease and other diseases of the circulatory system
CPT/HCPCS: 36415; 71045; 71046; 80048; 80053; 81001; 82150; 82272; 82550; 82948; 83036; 83605; 83690; 83735; 83880; 84100; 84436; 84443; 84484; 85025; 85610; 85730; 87015; 87040; 87045; 87070; 87081; 87086; 87186; 87804; 89055; 93005; 96361; 96365; 97110; 97116; 97530; 99285; J0696; J1644; J1815; J1956; J2270; J2405; J2543; J3475; J3490; J7030; J7060; J8597; Q0092

== ENCOUNTER 2019-09-21 23:23 | Emergency (ER) | payer OTHER ==
[~2019-09-21] VITALS: Ht 147.3 cm; Wt 111.1 kg
[~2019-09-21 23:23] MED LIST changes: -AMLO10TA87 PO; +ASPI-1718 PO; -ATI.5 PO; -DOL10 PO; +DULO30EC PO; -FAMO-90 PO; -GABA-636 PO; -ISOS20TA13 PO; +LACT10CA1 PO; +METO-485 PO; -METO25TA PO; +NITR100C7 PO; -POTA10TE30 PO; -RIVA20TA PO; -VALS320T2 PO; -VITD1000 PO
[2019-09-21 23:30] VITALS: BP 196/79
--- NOTE | 2019-09-21 23:39 | NUR ---
PT TAKEN TO CT VIA WHEELCHAIR
--- NOTE | 2019-09-21 23:40 | NUR ---
79 Y/O FEMALE BIB HER DAUGHTER. EPIGASTRIC PAIN WITH NAUSEA X1 DAY. HX OF GASTRITIS. A/OX4 AND FOLLOWS COMMANDS; RR 18; 95%ON RA. BOWEL SOUNDS HEARD ON ALL FOUR QUADRANTS. TENDER TO TOUCH IN THE MID EPIGASTRIC REGION. LAST BOWEL MOVEMENT WAS EARLIER TODAY. ERMD MADE AWARE OF STATUS. SIDE RAILSX1. DAUGHTER AT BEDSIDE. MEDHX- GASTRITIS, HTN, DM, ARTHRITIS NKA RX: MEDICATION FOR HTN.
--- NOTE | 2019-09-21 23:49 | NUR ---
PT BACK FROM CT
[2019-09-22] MEDS ORDERED: NACL 0.9% 500 ML IV SCH (00:03)
[2019-09-22 00:29] LABS: BASOPHILS % (AUTO) 0.5 % (0.0-2.0); EOSINOPHILS # (AUTO) 0.4 K/uL (0-0.4); EOSINOPHILS % (AUTO) 4.3 % (0.0-4.0); HEMATOCRIT 38.7 % (36-48); HEMOGLOBIN 12.5 g/dL (12.0-16.0); LYMPHOCYTES # (AUTO) 2.1 K/uL (2.5-16.5); LYMPHOCYTES % (AUTO) 23.5 % (20.5-51.1); MEAN CORPUSCULAR HEMOGLOBIN 29 pg (27-31); MEAN CORPUSCULAR HGB CONC 32 g/dL (33-37); MEAN CORPUSCULAR VOLUME 88.3 fL (80-94); MONOCYTES # (AUTO) 0.6 K/uL (0.8-1.0); MONOCYTES % (AUTO) 6.3 % (1.7-9.3); NEUTROPHILS # (AUTO) 5.8 K/uL (1.8-7.7); NEUTROPHILS % (AUTO) 65.4 % (42.2-75.2); PLATELET COUNT (AUTO) 249 K/uL (140-450); RED BLOOD CELL COUNT(AUTO) 4.38 MIL/uL (4.20-5.40); WHITE BLOOD COUNT (AUTO) 8.9 K/uL (4.8-10.8)
[2019-09-22 00:46] LABS: PROTHROMBIN TIME 9.3 secs (10.8-13.4)
--- NOTE | 2019-09-22 00:47 | NUR ---
Dr. Hughes examining patient.
[2019-09-22 00:49] LABS: ALBUMIN 3.4 g/dL (3.4-5.0); ANION GAP 9.3 (8-16); ASPARTATE AMINOTRANSFERASE 13 U/L (15-37); CARBON DIOXIDE 32.3 mmol/L (21-32); CHLORIDE 102 mmol/L (98-107); CREATININE 0.8 mg/dL (0.6-1.3); GLUCOSE 114 mg/dL (74-106); POTASSIUM 4.6 mmol/L (3.5-5.1); SODIUM SERUM 139 mmol/L (136-145); TOTAL BILIRUBIN 0.4 mg/dL (0.0-1.0); UREA NITROGEN, BLOOD 14 mg/dL (7-18)
[2019-09-22] MEDS ORDERED: PANTOPRAZOLE 40 MG INJ VIAL IVP ONE (00:55)
[2019-09-22] MEDS ORDERED: ALUMINUM HYD/MAG/SIMETHICONE 30 ML UDC PO ONE (00:55)
[2019-09-22] MEDS ORDERED: LIDOCAINE VISCOUS 2% 20 ML UDC PO ONE (00:55)
[2019-09-22] MEDS ORDERED: DICYCLOMINE HCL LIQUID 10 MG/5 ML UDC PO ONE (00:55)
--- NOTE | 2019-09-22 00:58 | NUR ---
XR AT BEDSIDE.
--- NOTE | 2019-09-22 01:12 | NUR ---
40 MG IVP PROTONIX AND PO GI COCKTAIL ADMINISTERED FOR 10/10 EPIGASTRIC PAIN. WILL REASSESS.
--- NOTE | 2019-09-22 01:17 | NUR ---
AMBULATES TO WITH SLOW, STEADY GAIT. DAUGHTER ASSISTING.
[2019-09-22 02:36] VITALS: BP 147/74
--- NOTE | 2019-09-22 02:36 | NUR ---
Patient discharged with v/s stable. Written and verbal after care instructions given and explained. Patient alert, oriented and verbalized understanding of instructions. Ambulatory with steady gait. All questions addressed prior to discharge. ID band removed. Patient advised to follow up with PMD. Rx of PROTONIX given. Patient educated on indication of medication including possible reaction and side effects. Opportunity to ask questions provided and answered.
== END 2019-09-22 02:36 | disposition home or self-care (01) ==
LOC: MED 23:23
DX: K29.70 Gastritis, unspecified, without bleeding (principal); I11.0 Hypertensive heart disease with heart failure; I50.9 Heart failure, unspecified; E11.9 Type 2 diabetes mellitus without complications; K21.9 Gastro-esophageal reflux disease without esophagitis; Z90.49 Acquired absence of other specified parts of digestive tract; Z79.899 Other long term (current) drug therapy; Z79.891 Long term (current) use of opiate analgesic; Z79.82 Long term (current) use of aspirin; Z79.2 Long term (current) use of antibiotics
CPT/HCPCS: 36415; 71045; 74176; 80053; 83605; 83880; 84484; 85025; 85610; 85730; 87040; 87086; 93005; 96361; 96374; 99284; C9113; Q0092; J7030

== ENCOUNTER 2019-10-20 16:32 | Inpatient (IN) | payer OTHER ==
[~2019-10-20] VITALS: Ht 144.8 cm; Wt 108.9 kg
[2019-10-20 16:45] VITALS: BP 202/90
--- NOTE | 2019-10-20 16:55 | NUR ---
PT AMBULTED TO BED 06
--- NOTE | 2019-10-20 17:14 | NUR ---
79 Y/O FEMALE C/O EPIGASTRIC PAIN AND 2 EPISODES VOMITING X 1 DAY. 10/10 BURNING PAIN TO EPIGASTRIC REGION. DENIES DIARRHEA/FEVER. BOWEL SOUNDS PRESENT X 4 QUAD. ABD SOFT, ROUND, AND TENDER TO PALP. RR EVEN AND UNLABORED, PT CALM AND PLEASANT. PT PLACED ON THE MONITOR. FAMILY MEMBER AT BEDSIDE. VSS MEDHX: DM, HTN, ARTHRITIS, GASTRITIS, STOMACH ULCER
[2019-10-20] MEDS ORDERED: ONDANSETRON 4 MG/2 ML VIAL IVP ONE (17:35)
[2019-10-20] MEDS ORDERED: ALUMINUM HYD/MAG/SIMETHICONE 30 ML, DICYCLOMINE HCL LIQUID 20 MG, LIDOCAINE VISCOUS 2% ... PO ONE ×3 (17:35)
[2019-10-20] MEDS ORDERED: NACL 0.9% 1,000 ML IV ONE (17:35)
[2019-10-20] MEDS ORDERED: NACL 0.9% 1,000 ML IV SCH (17:35)
[2019-10-20] MEDS ORDERED: MORPHINE SULFATE 2 MG/ML SYR IVP ONE (17:35)
[2019-10-20] MEDS ORDERED: PROMETHAZINE 25 MG/ML VIAL IM ONE (17:35)
--- NOTE | 2019-10-20 17:45 | NUR ---
PT TO CT VIA NETO
[2019-10-20 18:25] LABS: BASOPHILS # (AUTO) 0.1 K/uL (0.00-0.22); BASOPHILS % (AUTO) 0.7 % (0.0-2.0); EOSINOPHILS # (AUTO) 0.1 K/uL (0-0.4); EOSINOPHILS % (AUTO) 0.7 % (0.0-4.0); HEMATOCRIT 39.1 % (36-48); HEMOGLOBIN 12.7 g/dL (12.0-16.0); LYMPHOCYTES # (AUTO) 1.9 K/uL (2.5-16.5); LYMPHOCYTES % (AUTO) 18.6 % (20.5-51.1); MEAN CORPUSCULAR HEMOGLOBIN 29 pg (27-31); MEAN CORPUSCULAR HGB CONC 33 g/dL (33-37); MEAN CORPUSCULAR VOLUME 90.1 fL (80-94); MONOCYTES # (AUTO) 0.5 K/uL (0.8-1.0); MONOCYTES % (AUTO) 4.5 % (1.7-9.3); NEUTROPHILS # (AUTO) 7.8 K/uL (1.8-7.7); NEUTROPHILS % (AUTO) 75.5 % (42.2-75.2); PLATELET COUNT (AUTO) 264 K/uL (140-450); RED BLOOD CELL COUNT(AUTO) 4.33 MIL/uL (4.20-5.40); RED CELL DISTRIBUTION WIDTH 15.3 % (11.6-13.7); WHITE BLOOD COUNT (AUTO) 10.3 K/uL (4.8-10.8)
[2019-10-20] MEDS ORDERED: ALUMINUM HYD/MAG/SIMETHICONE 30 ML UDC ONE (18:25)
[2019-10-20] MEDS ORDERED: LIDOCAINE VISCOUS 2% 20 ML UDC ONE (18:25)
[2019-10-20] MEDS ORDERED: DICYCLOMINE HCL LIQUID 10 MG/5 ML UDC ONE (18:25)
[2019-10-20 18:40] LABS: BILIRUBIN,URINE NEGATIVE (NEGATIVE); BLOOD, URINE NEGATIVE (NEGATIVE); COLOR,URINE YELLOW (YELLOW); LEUKOCYTE ESTERASE ,URINE TRACE (NEGATIVE); NITRITE, URINE NEGATIVE (NEGATIVE); PH,URINE 7.5 (5.0-9.0); UGLUCOSE NEGATIVE (NEGATIVE)
[2019-10-20 18:49] LABS: AMYLASE 28 U/L (25-115); LIPASE 55 U/L (73-393)
[2019-10-20 18:50] LABS: ANION GAP 10.8 (8-16); CARBON DIOXIDE 31.5 mmol/L (21-32); CHLORIDE 102 mmol/L (98-107); CREATININE 0.7 mg/dL (0.6-1.3); GLUCOSE 122 mg/dL (74-106); POTASSIUM 5.3 mmol/L (3.5-5.1); SODIUM SERUM 139 mmol/L (136-145); UREA NITROGEN, BLOOD 19 mg/dL (7-18)
[2019-10-20 18:58] LABS: ALBUMIN 3.5 g/dL (3.4-5.0); ASPARTATE AMINOTRANSFERASE 14 U/L (15-37); TOTAL BILIRUBIN 0.3 mg/dL (0.0-1.0)
[2019-10-20] MEDS ORDERED: ACETAMINOPHEN 325 MG TAB PO PRN (19:10)
[2019-10-20] MEDS ORDERED: DOCUSATE SODIUM 100 MG GELCAP PO PRN (19:10)
[2019-10-20] MEDS ORDERED: ONDANSETRON 4 MG/2 ML VIAL IM/IVP PRN (19:10)
[2019-10-20 19:21] LABS: APPEARANCE,URINE CLEAR (CLEAR); RBC,URINE NONE SEEN /HPF (0-5); WBC,URINE NONE SEEN /HPF (0-5)
--- NOTE | 2019-10-20 19:25 | NUR ---
Pt RECEIED FROM NANCY ADDISON. Transfer of care at this time.
[2019-10-20] MEDS ORDERED: METOCLOPRAMIDE 10 MG TAB PO PRN (19:30)
[2019-10-20] MEDS ORDERED: INSULIN LISPRO SLIDING SCALE 100 UNITS/ML VIAL SUBQ PRN (19:30)
[2019-10-20] MEDS ORDERED: DEXTROSE 50% 50 ML SYR IVP PRN (19:30)
[2019-10-20] MEDS ORDERED: SODIUM POLYSTYRENE 15 GM/60 ML UDBTL PO SCH (19:30)
--- NOTE | 2019-10-20 19:36 | NUR ---
X-Ray at bedside.
[2019-10-20] MEDS ORDERED: LISI40TA4 PO (19:39)
[2019-10-20] MEDS ORDERED: FURO-570 PO (19:55)
[2019-10-20] MEDS ORDERED: HYDR-1098 PO (19:55)
[2019-10-20] MEDS ORDERED: PREG200C PO (19:55)
[2019-10-20 20:00] VITALS: BP 179/60
--- NOTE | 2019-10-20 20:00 | NUR ---
Patient will be admitted to care of DR RIOS. Admited to TELE. Will go to room 127B. Belongings list completed. Report to KAYLA ADDISON.
--- NOTE | 2019-10-20 20:00 | NUR ---
RECEIVED PT FROM LILIA COLLINS PT, PT CAME VIA NETO, PT ABLE TO AMBULATE BUT WITH MINIMAL ASSISTANCE. PT WITH IV ON THE LEFT AC G 20.WITH DAUGHTER IN LAW AT BEDSIDE. PT ON FALL RISK WILL CONTINUE TO MONITOE
[2019-10-20 20:02] LABS: MAGNESIUM 2.4 mg/dL (1.8-2.4); PHOSPHORUS 3.1 mg/dL (2.5-4.9); THYROID STIMULATING HORMONE 0.67 uIU/mL (0.34-3.74)
[2019-10-20] MEDS ORDERED: PANTOPRAZOLE 40 MG INJ VIAL IVP SCH (20:30)
[2019-10-20] MEDS ORDERED: hydrALAZINE 20 MG/ML VIAL IVP SCH (20:30)
[2019-10-20] MEDS: BLOOD GLUCOSE MONITORING 1 DEV DEV FS SCH (21:00)
[2019-10-20] MEDS ORDERED: hydrALAZINE 10 MG TAB ONE (22:21)
[2019-10-20] MEDS ORDERED: cefTRIAXone 1,000 MG VIAL ONE (22:24)
[2019-10-20] MEDS: NACL 0.9% 1,000 ML IV SCH (22:40)
[2019-10-20] MEDS: PREGABALIN 50 MG CAP PO SCH (22:46)
[2019-10-20] MEDS: HYDROcodone/APAP 10/325 MG 1 TAB TAB PO PRN (22:46)
[2019-10-20] MEDS: FUROSEMIDE 40 MG TAB PO SCH (22:47)
[2019-10-20] MEDS: DULoxetine 30 MG CAPDR PO SCH (22:47)
[2019-10-20] MEDS: SUCRALFATE 1 GM TAB PO SCH (22:47)
--- NOTE | 2019-10-20 22:49 | NUR ---
RETURNED APRESOLINE 10 MG TAB, AND GOT THE ORDERED VIAL
--- NOTE | 2019-10-20 23:40 | NUR ---
PT SLEEPING, NOT ION PAIN AND NOT IN RESPIRATORY DISTRESS
[2019-10-21] VITALS: BP 146/51
--- NOTE | 2019-10-21 00:19 | NUR ---
PT SLEEPING NOT IN RESPIRATORY DISTRESS
[2019-10-21 04:00] VITALS: BP 142/59
--- NOTE | 2019-10-21 04:00 | NUR ---
PT SLEEPING, NOT IN RESPIRATORY DISTRESS, WILL CONTINUE TO MONITOR
--- NOTE | 2019-10-21 05:32 | NUR ---
CHECKED ON PT PT WENT TO THE BATHROOM, AMBULATORY W/ ASSISTANCE
[2019-10-21 06:28] LABS: BASOPHILS # (AUTO) 0.1 K/uL (0.00-0.22); BASOPHILS % (AUTO) 0.7 % (0.0-2.0); EOSINOPHILS # (AUTO) 0.2 K/uL (0-0.4); EOSINOPHILS % (AUTO) 2.2 % (0.0-4.0); LYMPHOCYTES # (AUTO) 2.6 K/uL (2.5-16.5); LYMPHOCYTES % (AUTO) 30.2 % (20.5-51.1); MEAN CORPUSCULAR HEMOGLOBIN 30 pg (27-31); MEAN CORPUSCULAR HGB CONC 33 g/dL (33-37); MEAN CORPUSCULAR VOLUME 90.9 fL (80-94); MONOCYTES # (AUTO) 0.6 K/uL (0.8-1.0); MONOCYTES % (AUTO) 6.5 % (1.7-9.3); NEUTROPHILS # (AUTO) 5.2 K/uL (1.8-7.7); NEUTROPHILS % (AUTO) 60.4 % (42.2-75.2); PLATELET COUNT (AUTO) 271 K/uL (140-450); RED CELL DISTRIBUTION WIDTH 15.3 % (11.6-13.7); WHITE BLOOD COUNT (AUTO) 8.7 K/uL (4.8-10.8)
[2019-10-21] MEDS: metFORMIN 500 MG TAB PO SCH (06:40)
[2019-10-21] MEDS: BLOOD GLUCOSE MONITORING 1 DEV DEV FS SCH ×4 (06:40→21:55)
[2019-10-21 07:03] LABS: ANION GAP 9.9 (8-16); CARBON DIOXIDE 32.6 mmol/L (21-32); CHLORIDE 105 mmol/L (98-107); CREATININE 0.8 mg/dL (0.6-1.3); GLUCOSE 105 mg/dL (74-106); POTASSIUM 4.5 mmol/L (3.5-5.1); SODIUM SERUM 143 mmol/L (136-145); UREA NITROGEN, BLOOD 15 mg/dL (7-18)
[2019-10-21 07:13] LABS: MAGNESIUM 2.2 mg/dL (1.8-2.4); PHOSPHORUS 3.6 mg/dL (2.5-4.9)
--- NOTE | 2019-10-21 07:25 | NUR ---
PT PT AWAKE, ALERT ORIENTED, PT IN STABLE CONDITION AT THIS TIME. WILL ENDORSE TO NEXT SHIFT
--- NOTE | 2019-10-21 07:30 | NUR ---
RECEIVED REPORT FROM NIGHT NURSE. PT IN STABLE CONDITION, AAOX4, NO DISTRESS NOTED, DENIES PAIN. RESPIRATIONS EVEN AND UNLABORED ON ROOM AIR. SKIN INTACT. AMBULATORY WITH ASSIST. IV IN PLACE PATENT AND ASYMPTOMATIC INFUSING PER ORDER IN L AC 20G. SAFETY MEASURES IN PLACE. CALL LIGHT WITHIN REACH. BED IN LOS POSITION. WILL CONTINUE TO MONITOR.
[2019-10-21 08:00] VITALS: BP 146/21
[2019-10-21] MEDS ORDERED: METOCLOPRAMIDE 10 MG/2 ML INJ VIAL IVP SCH (08:00)
--- NOTE | 2019-10-21 08:46 | NUR ---
PATIENT HAS BEEN SCREENED AND CATEGORIZED MODERATE NUTRITION RISK. PATIENT WILL BE SEEN WITHIN 3-5 DAYS OF ADMISSION. 10/23/19 10/25/[address]
[2019-10-21] MEDS: DULoxetine 30 MG CAPDR PO SCH ×2 (09:24→22:06)
[2019-10-21] MEDS: LACTOBACILLUS RHAMNOSUS GG 1 EACH CAP PO SCH (09:24)
[2019-10-21] MEDS: SUCRALFATE 1 GM TAB PO SCH ×2 (09:25→22:02)
[2019-10-21] MEDS: ASPIRIN 81 MG TAB.CHEW PO SCH (09:25)
[2019-10-21] MEDS: LISINOPRIL 20 MG TAB PO SCH (09:25)
[2019-10-21] MEDS: FUROSEMIDE 40 MG TAB PO SCH ×2 (09:25→22:02)
[2019-10-21] MEDS: PREGABALIN 50 MG CAP PO SCH ×2 (09:26→22:02)
[2019-10-21] MEDS: PANTOPRAZOLE 40 MG TABEC PO SCH ×2 (09:26→22:02)
[2019-10-21] MEDS: hydrALAZINE 25 MG TAB PO SCH ×3 (09:27→17:38)
--- NOTE | 2019-10-21 09:45 | NUR ---
MEDICATIONS ADMINISTERED PER ORDER. PT TOLERATED WELL. NO DISTRESS NOTED. SAFETY MEASURES IN PLACE. CALL LIGHT WITHIN REACH.
--- NOTE | 2019-10-21 11:08 | NUR ---
PT SITTING IN BED IN COMPANY OF FAMILY MEMBER, WATCHING TELEVISION. NO DISTRESS NOTED, DENIES PAIN. SAFETY MEASURES IN PLACE. WILL CONTINUE TO MONITOR.
[2019-10-21 11:10] LABS: CHOL/HDL RATIO 2.6 (1-4.5)
[2019-10-21 12:00] VITALS: BP 168/112
--- NOTE | 2019-10-21 12:49 | NUR ---
VITAL SIGNS TAKEN AT THIS TIME. PT IN STABLE CONDITION, NO DISTRESS NOTED. SAFETY MEASURES IN PLACE. CALL LIGHT WITHIN REACH. WILL CONTINUE TO MONITOR.
--- NOTE | 2019-10-21 15:02 | NUR ---
PT IN BED SLEEPING AT THIS TIME. NO DISTRESS NOTED. SAFETY MEASURES IN PLACE. CALL LIGHT WITHIN REACH, WILL CONTINUE TO MONITOR.
[2019-10-21 16:00] VITALS: BP 151/49
--- NOTE | 2019-10-21 16:22 | NUR ---
VITAL SIGNS AND BLOOD SUGAR CHECKED AT THIS TIME. PT TOLERATED WELL, NO DISTRESS NOTED, PT DENIES PAIN. SAFETY MEASURES IN PLACE. CALL LIGHT WITHIN REACH. WILL CONTINUE TO MONITOR.
--- NOTE | 2019-10-21 16:24 | NUR ---
DISCHARGE PLANNING: AN 79 Y/O FEMALE PATIENT FROM HOME, WHO CAME IN DUE TO NAUSEA AND VOMITING X 1 DAY. PAST MEDICAL HISTORY INCLUDE CAD S/P STENT PLACEMENT, CHF, CHRONIC GASTRITIS/ESOPHAGITIS, DIVERTICULOSIS, COLONIC POLYPS, DM, ESSENTIAL HTN, MAJOR DEPRESSION AND ARTHRITIS. INITIAL DIAGNOSIS OF DEHYDRATION. CURRENT LABS INCLUDE WBC 8.7, H/H 13.0/40.0, NA/K 143/4.5, BUN/CREA 15/0.8. MRSA NARES PENDING. ON ROCEPHIN. NO CONSULTS AT THIS TIME. DC PLAN TO HOME ONCE STABLE.
[2019-10-21] MEDS: HYDROcodone/APAP 10/325 MG 1 TAB TAB PO PRN (17:43)
--- NOTE | 2019-10-21 19:10 | NUR ---
REPORT GIVEN TO NIGHT NURSE FOR CONTINUITY OF CARE.
--- NOTE | 2019-10-21 19:15 | NUR ---
RECEIVED PT IN STAB;E CONDITION FROM AM NURSE. AWAKE, ALERT AND ORIENTED X4. ON TELE MONITOR. LUXEMBOURGISH SPEAKING. WITH NO C/O ANY DISCOMFORT NOR PAIN NOTED. WITH IVF INFUSING WELL ON THE LT ACG#20. CLEAR AND PATENT. PLAN OF CARE DISCUSSED AND VERBALIZED UNDERSTANDING. BED ON LOW POSITION, SIDE RAILS UP X2. CALL LIGHT PLACED WITHIN EASY REACH. WILL CONTINUE TO MONITOR.
[2019-10-21 20:00] VITALS: BP 142/39
--- NOTE | 2019-10-21 21:55 | NUR ---
BLOOD SUGAR WAS CHECKED RESULT 87. PROVIDE WITH SOME SNACK. TOLERATED WELL. WILL CONTINUE TO MONITOR.
[2019-10-21] MEDS: NACL 0.9% 1,000 ML IV SCH (22:00)
--- NOTE | 2019-10-21 22:10 | NUR ---
IV ACCESS ON LT AC LEAKING DISCONTINUED . STARTED A NEW IV ON LT WRIST G#24. CLEAR AND PATENT.
[2019-10-22] VITALS: BP 158/57
--- NOTE | 2019-10-22 00:25 | NUR ---
ENDORSED PT TO AZAEL YANEZ FOR CONTINUITY OF CARE.
--- NOTE | 2019-10-22 00:30 | NUR ---
RECEIVED PT FROM OLLIE RN PT IS AAOX4 AMBULATES TOT HE RESTROOM ON TELEMETRY SR IV ON LEFT WRIST INFUSING WELL INITIAL ASSESSMENT DONE
[2019-10-22 04:00] VITALS: BP 124/61
--- NOTE | 2019-10-22 04:00 | NUR ---
SPONGE BATH GIVEN LINEN CHANGED NOT DISTRESS NOTED ON TELEMETRY SB
[2019-10-22 06:11] LABS: BASOPHILS # (AUTO) 0.1 K/uL (0.00-0.22); BASOPHILS % (AUTO) 0.7 % (0.0-2.0); EOSINOPHILS # (AUTO) 0.3 K/uL (0-0.4); EOSINOPHILS % (AUTO) 3.3 % (0.0-4.0); HEMATOCRIT 37.4 % (36-48); HEMOGLOBIN 12.2 g/dL (12.0-16.0); LYMPHOCYTES # (AUTO) 2.7 K/uL (2.5-16.5); LYMPHOCYTES % (AUTO) 35.4 % (20.5-51.1); MEAN CORPUSCULAR HEMOGLOBIN 30 pg (27-31); MEAN CORPUSCULAR HGB CONC 33 g/dL (33-37); MEAN CORPUSCULAR VOLUME 90.6 fL (80-94); MONOCYTES # (AUTO) 0.6 K/uL (0.8-1.0); MONOCYTES % (AUTO) 8.1 % (1.7-9.3); NEUTROPHILS % (AUTO) 52.5 % (42.2-75.2); PLATELET COUNT (AUTO) 245 K/uL (140-450); RED BLOOD CELL COUNT(AUTO) 4.13 MIL/uL (4.20-5.40); RED CELL DISTRIBUTION WIDTH 14.9 % (11.6-13.7); WHITE BLOOD COUNT (AUTO) 7.7 K/uL (4.8-10.8)
[2019-10-22 06:48] LABS: ANION GAP 8.6 (8-16); CARBON DIOXIDE 32.4 mmol/L (21-32); CHLORIDE 103 mmol/L (98-107); CREATININE 0.8 mg/dL (0.6-1.3); GLUCOSE 90 mg/dL (74-106); SODIUM SERUM 140 mmol/L (136-145); UREA NITROGEN, BLOOD 16 mg/dL (7-18)
[2019-10-22] MEDS: metFORMIN 500 MG TAB PO SCH (06:59)
--- NOTE | 2019-10-22 06:59 | NUR ---
PT WILL BE ENDORSED TO DAY SHIFT NURSE FOR CONTINUE OF CARE
--- NOTE | 2019-10-22 07:10 | NUR ---
RECEIVED PT FROM AUDITOR INTERNAL NURSE, PT IS AWAKE AND SEATED ON THE BED WITH SIDE RAILS UP AND CALL LIGHT WITHIN REACH, PERIPHERAL LINE ON THE LEFT HAND G. 24 WITH NS INFUSING AT 30ML/HR, PT IS AOX4, ON ROOM AIR AND DENIES PAIN, NO SIGN OF DISTRESS NOTED AND WILL MONITOR PT.
[2019-10-22 07:44] LABS: PHOSPHORUS 4.2 mg/dL (2.5-4.9)
[2019-10-22 08:00] VITALS: BP 143/58
[2019-10-22] MEDS: BLOOD GLUCOSE MONITORING 1 DEV DEV FS SCH ×2 (08:20→12:09)
[2019-10-22] MEDS: LACTOBACILLUS RHAMNOSUS GG 1 EACH CAP PO SCH (09:21)
[2019-10-22] MEDS: SUCRALFATE 1 GM TAB PO SCH (09:22)
[2019-10-22] MEDS: ASPIRIN 81 MG TAB.CHEW PO SCH (09:22)
[2019-10-22] MEDS: PANTOPRAZOLE 40 MG TABEC PO SCH (09:22)
[2019-10-22] MEDS: FUROSEMIDE 40 MG TAB PO SCH (09:23)
[2019-10-22] MEDS: hydrALAZINE 25 MG TAB PO SCH ×2 (09:24→12:49)
--- NOTE | 2019-10-22 09:27 | NUR ---
PT WAS GIVEN THE SCHEDULED AM MEDICATIONS, PARAMETERS CHECK AND IS STABLE TO RECEIVED THE MEDICATIONS, WILL MONITOR PT.
[2019-10-22] MEDS: PREGABALIN 50 MG CAP PO SCH (09:38)
[2019-10-22] MEDS: DULoxetine 30 MG CAPDR PO SCH (09:38)
[2019-10-22] MEDS: LISINOPRIL 20 MG TAB PO SCH (09:39)
[2019-10-22 12:00] VITALS: BP 163/51
--- NOTE | 2019-10-22 12:09 | NUR ---
BLOOD GLUCOSE CHECK DONE AND RESULT IS 94 AND NO INSULIN COVERAGE IS NEEDED.
--- NOTE | 2019-10-22 12:49 | NUR ---
PT'S BP WAS 163/51, PULSE IS 71, O2 SATURATION IS 96%, SCHEDULED HYDRALAZINE ORAL WAS GIVEN TO PT AND TOLERFATED IT. WILL RE-CHECK BP.
[2019-10-22 15:38] VITALS: BP 150/78
--- NOTE | 2019-10-22 15:38 | NUR ---
DISCHARGED PT TO HOME WITH DAUGHTER, DISCHARGED TEACHINGS REGARDING DIABETES AND INSTRUCTIONS ON HOW TO PREVENT GASTROENTERITIS WERE GIVEN TO PT AND PT VERBALIZED UNDERSTANDING, IV LINE AND ARM BAND REMOVED AND PT IS STABLE AT THIS TIME WITH BP IS 150/78, PULSE IS 78, O2 SATURATION IS 95%, TEMP IS 98.2, PT IS STABLE AT THIS TIME.
== END 2019-10-22 15:38 | disposition home or self-care (01) | DRG 391 ==
LOC: MED 16:32 → MMU 19:15
PROVIDERS: ADMIT General Practice; ATTEND General Practice
DX: K29.00 Acute gastritis without bleeding (principal); E43 Unspecified severe protein-calorie malnutrition; Z68.43 Body mass index [BMI] 50.0-59.9, adult; I11.0 Hypertensive heart disease with heart failure; I50.9 Heart failure, unspecified; M19.90 Unspecified osteoarthritis, unspecified site; K21.9 Gastro-esophageal reflux disease without esophagitis; E66.01 Morbid (severe) obesity due to excess calories; E86.0 Dehydration; I25.10 Atherosclerotic heart disease of native coronary artery without angina pectoris; K57.90 Diverticulosis of intestine, part unspecified, without perforation or abscess without bleeding; F32.9 Major depressive disorder, single episode, unspecified; Z96.653 Presence of artificial knee joint, bilateral; E87.5 Hyperkalemia; E11.40 Type 2 diabetes mellitus with diabetic neuropathy, unspecified; Z79.82 Long term (current) use of aspirin; Z79.899 Other long term (current) drug therapy; Z90.49 Acquired absence of other specified parts of digestive tract; Z95.5 Presence of coronary angioplasty implant and graft; Z90.710 Acquired absence of both cervix and uterus; Z82.61 Family history of arthritis; Z82.49 Family history of ischemic heart disease and other diseases of the circulatory system
CPT/HCPCS: 36415; 71045; 80048; 80053; 81001; 82150; 82948; 83036; 83690; 83735; 83880; 84100; 84134; 84443; 84484; 85025; 85610; 85730; 87081; 93005; 96372; 96374; 96375; 97161-GP; 99285; C9113; J0360; J0696; J1644; J1815; J2270; J2405; J2550; J2765; J7030; J7060; J8597; Q0092

== ENCOUNTER 2019-11-24 09:58 | Emergency (ER) | payer OTHER ==
[~2019-11-24] VITALS: Ht 144.8 cm; Wt 113.4 kg
[~2019-11-24 09:58] MED LIST changes: -ASPI-1718 PO; +ASPI-1822 PO; -CALC-575 PO; -CLON0.2T43 PO; +HYDR-1098 PO; -HYDR100T79 PO; -LACT10CA1 PO; -LISI-420 PO; +LISI40TA4 PO; -MECL-272 PO; +MECL-303 PO; -NITR100C7 PO; -ONDA4TAB PO; -PAX20 PO; -PREG100C PO; +PREG200C PO; -[UNRECOGNIZED DRUG - CODE] PO
[2019-11-24 10:10] VITALS: BP 170/57
[2019-11-24] MEDS ORDERED: FERR-20 PO (10:28)
[2019-11-24] MEDS ORDERED: ATI.5 PO (10:28)
[2019-11-24] MEDS ORDERED: METO25TE2 PO (10:28)
[2019-11-24] MEDS ORDERED: LISI-420 PO (10:28)
[2019-11-24] MEDS ORDERED: ONDA4TAB12 PO (10:28)
[2019-11-24] MEDS ORDERED: HYDR100T79 PO (10:28)
[2019-11-24] MEDS ORDERED: CALC-575 PO (10:28)
[2019-11-24] MEDS ORDERED: CLON0.2T43 PO (10:28)
--- NOTE | 2019-11-24 10:33 | NUR ---
RECEIVED A 79/F FROM TRIAGE FOR C/O EPIGASTRIC PAIN. PT DESCRIBES PAIN BURNING IN EPIGASTRIC REGION. PT HAS KNOWN HX OF GERD AND GASTRITIS. ABD IS SOFT NON TENDER. NO DISTENTION NOTED. IN BED FOR MSE.
[2019-11-24] MEDS ORDERED: FAMOTIDINE 20 MG TAB PO ONE (10:35)
[2019-11-24] MEDS ORDERED: ONDANSETRON 4 MG ODT PO ONE (10:35)
[2019-11-24] MEDS ORDERED: MORPHINE SULFATE 4 MG/ML SYR IM ONE (10:35)
[2019-11-24] MEDS ORDERED: ALUMINUM HYD/MAG/SIMETHICONE 30 ML UDC PO ONE (10:35)
[2019-11-24] MEDS ORDERED: LIDOCAINE VISCOUS 2% 20 ML UDC PO ONE (10:35)
--- NOTE | 2019-11-24 10:46 | NUR ---
MEDICATED ORDERED. PT TOLERATED WELL. WILL REASSESS PAIN.
--- NOTE | 2019-11-24 11:00 | NUR ---
REPORTS RELIEF OF PAIN AFTER MEDICATIONS. RATES PAIN AT 2/10.
[2019-11-24 11:03] LABS: BASOPHILS # (AUTO) 0.1 K/uL (0.00-0.22); BASOPHILS % (AUTO) 0.6 % (0.0-2.0); EOSINOPHILS # (AUTO) 0.2 K/uL (0-0.4); EOSINOPHILS % (AUTO) 1.7 % (0.0-4.0); HEMATOCRIT 40.1 % (36-48); HEMOGLOBIN 12.9 g/dL (12.0-16.0); LYMPHOCYTES # (AUTO) 1.6 K/uL (2.5-16.5); LYMPHOCYTES % (AUTO) 16.6 % (20.5-51.1); MEAN CORPUSCULAR HEMOGLOBIN 30 pg (27-31); MEAN CORPUSCULAR HGB CONC 32 g/dL (33-37); MEAN CORPUSCULAR VOLUME 92.4 fL (80-94); MONOCYTES # (AUTO) 0.7 K/uL (0.8-1.0); MONOCYTES % (AUTO) 7.2 % (1.7-9.3); NEUTROPHILS # (AUTO) 6.9 K/uL (1.8-7.7); NEUTROPHILS % (AUTO) 73.9 % (42.2-75.2); PLATELET COUNT (AUTO) 260 K/uL (140-450); RED BLOOD CELL COUNT(AUTO) 4.34 MIL/uL (4.20-5.40); RED CELL DISTRIBUTION WIDTH 15.7 % (11.6-13.7); WHITE BLOOD COUNT (AUTO) 9.3 K/uL (4.8-10.8)
[2019-11-24 11:17] LABS: ALBUMIN 3.4 g/dL (3.4-5.0); ANION GAP 11.8 (8-16); ASPARTATE AMINOTRANSFERASE 12 U/L (15-37); CARBON DIOXIDE 29.6 mmol/L (21-32); CHLORIDE 102 mmol/L (98-107); CREATININE 0.7 mg/dL (0.6-1.3); GLUCOSE 108 mg/dL (74-106); LIPASE 50 U/L (73-393); POTASSIUM 5.4 mmol/L (3.5-5.1); SODIUM SERUM 138 mmol/L (136-145); TOTAL BILIRUBIN 0.3 mg/dL (0.0-1.0); UREA NITROGEN, BLOOD 15 mg/dL (7-18)
[2019-11-24 12:33] VITALS: BP 170/57
== END 2019-11-24 12:33 | disposition home or self-care (01) ==
LOC: MED 09:58
DX: K29.70 Gastritis, unspecified, without bleeding (principal); I11.0 Hypertensive heart disease with heart failure; I50.9 Heart failure, unspecified; E11.9 Type 2 diabetes mellitus without complications; K21.9 Gastro-esophageal reflux disease without esophagitis; Z90.710 Acquired absence of both cervix and uterus; Z90.49 Acquired absence of other specified parts of digestive tract; Z98.890 Other specified postprocedural states; Z79.899 Other long term (current) drug therapy
CPT/HCPCS: 36415; 80053; 81002; 83690; 84484; 85025; 93005; 96372; 99284; J2270; Q0162

== ENCOUNTER 2019-11-26 11:40 | Emergency (ER) | payer OTHER ==
[~2019-11-26] VITALS: Ht 144.8 cm; Wt 117.9 kg
[~2019-11-26 11:40] MED LIST changes: +ATI.5 PO; +CALC-575 PO; +CLON0.2T43 PO; +FERR-20 PO; +HYDR100T79 PO; +LISI-420 PO; +METO25TE2 PO; +ONDA4TAB12 PO
[2019-11-26 11:53] VITALS: BP 135/59
--- NOTE | 2019-11-26 11:59 | NUR ---
Patient ambulated to bed 4 with family. RN evaluating patient at bedside.
--- NOTE | 2019-11-26 12:05 | NUR ---
79/F BIB DAUGHTER IN LAW C/O EPIGASTRIC PAIN X 1 WK WITH N/V. VOMITUS X4 YESTERDAY NON BLOODY. DENIES FEVER. STATES CHILLS. NO DIARRHEA. EPIGASTRIC PAIN BURNING THAT RADIATES UPWARD TO THROAT. PAIN IS NOT POSITIONAL. D/C ON 11/24/19 AND NEW RX OF ZOFRAN FOR NAUSEA. PAIN 06/09 HX- GASTRITIS, DM, HTN, RA, GASTRIC ULCERS RX-OMEPRAZOLE, CARAFATE
--- NOTE | 2019-11-26 12:11 | NUR ---
BRADYCARDIC IN 40s BPM AT BASELINE. PT CONNECTED TO BEDSIDE MONITOR. PER DAUGHTER IN LAW, NO CARDIAC PROBLEMS. PCP TOLD PT THAT SHE IS BRADYCARDIC DUE TO AGE.
--- NOTE | 2019-11-26 12:42 | NUR ---
DR CORRAL EVALUATING PT AT BEDSIDE
[2019-11-26] MEDS ORDERED: MAGNESIUM HYDROXIDE 2400 MG/30 ML UDC PO ONE (12:50)
[2019-11-26] MEDS ORDERED: FAMOTIDINE 20 MG/2 ML VIAL IVP ONE (12:50)
[2019-11-26] MEDS ORDERED: LIDOCAINE VISCOUS 2% 20 ML UDC PO ONE (12:50)
[2019-11-26] MEDS ORDERED: MORPHINE SULFATE 4 MG/ML SYR IVP ONE (12:50)
[2019-11-26] MEDS ORDERED: ONDANSETRON 4 MG/2 ML VIAL IVP ONE (12:50)
--- NOTE | 2019-11-26 13:02 | NUR ---
SKINNER PELTS @ BEDSIDE
[2019-11-26 13:19] LABS: APPEARANCE,URINE SL CLOUDY (CLEAR); BILIRUBIN,URINE NEGATIVE (NEGATIVE); BLOOD, URINE NEGATIVE (NEGATIVE); COLOR,URINE YELLOW (YELLOW); LEUKOCYTE ESTERASE ,URINE 1+ (NEGATIVE); NITRITE, URINE NEGATIVE (NEGATIVE); PH,URINE 6.5 (5.0-9.0); UGLUCOSE NEGATIVE (NEGATIVE)
[2019-11-26 13:36] LABS: ALBUMIN 3.5 g/dL (3.4-5.0); AMYLASE 22 U/L (25-115); ANION GAP 8.4 (8-16); ASPARTATE AMINOTRANSFERASE 14 U/L (15-37); CARBON DIOXIDE 31.5 mmol/L (21-32); CHLORIDE 100 mmol/L (98-107); GLUCOSE 107 mg/dL (74-106); LIPASE 44 U/L (73-393); POTASSIUM 4.9 mmol/L (3.5-5.1); SODIUM SERUM 135 mmol/L (136-145); TOTAL BILIRUBIN 0.4 mg/dL (0.0-1.0); UREA NITROGEN, BLOOD 20 mg/dL (7-18)
[2019-11-26 13:45] LABS: BASOPHILS % (AUTO) 0.4 % (0.0-2.0); EOSINOPHILS # (AUTO) 0.1 K/uL (0-0.4); EOSINOPHILS % (AUTO) 0.9 % (0.0-4.0); HEMATOCRIT 39.3 % (36-48); HEMOGLOBIN 13.1 g/dL (12.0-16.0); LYMPHOCYTES % (AUTO) 22.9 % (20.5-51.1); MEAN CORPUSCULAR HEMOGLOBIN 30 pg (27-31); MEAN CORPUSCULAR HGB CONC 33 g/dL (33-37); MONOCYTES # (AUTO) 0.7 K/uL (0.8-1.0); MONOCYTES % (AUTO) 7.9 % (1.7-9.3); NEUTROPHILS # (AUTO) 6.1 K/uL (1.8-7.7); NEUTROPHILS % (AUTO) 67.9 % (42.2-75.2); PLATELET COUNT (AUTO) 283 K/uL (140-450); RED BLOOD CELL COUNT(AUTO) 4.37 MIL/uL (4.20-5.40); RED CELL DISTRIBUTION WIDTH 15.3 % (11.6-13.7); WHITE BLOOD COUNT (AUTO) 8.9 K/uL (4.8-10.8)
[2019-11-26 14:27] LABS: RBC,URINE 0-5 /HPF (0-5); WBC,URINE 16-25 (MOD) /HPF (0-5)
[2019-11-26] MEDS ORDERED: cefTRIAXone 2,000 MG in DEXTROSE 5% 100 ML IV ONE (14:50)
[2019-11-26] MEDS ORDERED: cefTRIAXone 2,000 MG VIAL ONE (15:08)
--- NOTE | 2019-11-26 15:53 | NUR ---
PT RESTING COMFORTABLY IN BED. SHE STATES HER PAIN IS 0/10. WILL CONTINUE TO MONITOR, BED SIDE RAILS X2
[2019-11-26 18:08] VITALS: BP 148/47
--- NOTE | 2019-11-26 18:08 | NUR ---
Patient discharged with v/s stable. Written and verbal after care instructions given and explained. Patient alert, oriented and verbalized understanding of instructions. Ambulatory with steady gait. All questions addressed prior to discharge. ID band removed. Patient advised to follow up with PMD. Rx of MACROBID given. Patient educated on indication of medication including possible reaction and side effects. Opportunity to ask questions provided and answered. PT D/C BY DR CORRAL
--- NOTE | 2019-11-27 10:04 | NUR ---
Late entry. COnfirmed with RN that Rocephin IV completed at 1615
== END 2019-11-26 18:08 | disposition home or self-care (01) ==
LOC: MED 11:40
DX: N39.0 Urinary tract infection, site not specified (principal); I11.0 Hypertensive heart disease with heart failure; I50.9 Heart failure, unspecified; K21.9 Gastro-esophageal reflux disease without esophagitis; E11.9 Type 2 diabetes mellitus without complications; Z90.49 Acquired absence of other specified parts of digestive tract; Z98.890 Other specified postprocedural states; Z90.710 Acquired absence of both cervix and uterus; Z79.82 Long term (current) use of aspirin; Z79.84 Long term (current) use of oral hypoglycemic drugs; Z79.899 Other long term (current) drug therapy
CPT/HCPCS: 36415; 80053; 81001; 82150; 83690; 85025; 87086; 96365; 96375; 99284; J0696; J2270; J2405; J3490

== ENCOUNTER 2019-12-08 15:01 | Inpatient (IN) | payer OTHER ==
[~2019-12-08] VITALS: Ht 143.5 cm; Wt 114.8 kg
[2019-12-08 15:09] VITALS: BP 123/47
--- NOTE | 2019-12-08 15:17 | NUR ---
AMB TO BED 06
--- NOTE | 2019-12-08 15:29 | NUR ---
PT PLACED FULL FOWLERS
--- NOTE | 2019-12-08 15:29 | NUR ---
79 Y/O F C/C DYSPNEA X 3 DAYS. PER PT PAIN INSPIRATION /10. PT DENIES DIZZINESS OR ANY OTHER S/S. LUNG SOUNDS CLEAR BILATERAL UPPER; DIMINISHED BILATERAL BOTTOM. PT DENIES CHEST PAIN. PT NKA. HX HTN,DM,ASTHMA. RX AMLODOPINE,METFORMIN,BUDESONIDE. NO N/V/D. SIDE RAIL X1. FAMILY AT BEDISE. PT RA 98%; PLACED ON O2 2LMP.
--- NOTE | 2019-12-08 15:42 | NUR ---
ERMD AT BEDSIDE
[2019-12-08] MEDS ORDERED: MORPHINE SULFATE 4 MG/ML SYR IVP ONE (15:45)
[2019-12-08] MEDS ORDERED: ONDANSETRON 4 MG/2 ML VIAL IVP ONE (15:45)
[2019-12-08] MEDS ORDERED: ALUMINUM HYD/MAG/SIMETHICONE 30 ML UDC PO ONE (15:45)
--- NOTE | 2019-12-08 16:02 | NUR ---
LAB AT BEDSIDE
--- NOTE | 2019-12-08 16:02 | NUR ---
XRAY AT BEDSIDE
[2019-12-08 16:29] LABS: BASOPHILS # (AUTO) 0.1 K/uL (0.00-0.22); BASOPHILS % (AUTO) 0.9 % (0.0-2.0); EOSINOPHILS # (AUTO) 0.2 K/uL (0-0.4); EOSINOPHILS % (AUTO) 1.7 % (0.0-4.0); HEMATOCRIT 38.6 % (36-48); HEMOGLOBIN 12.6 g/dL (12.0-16.0); LYMPHOCYTES # (AUTO) 1.6 K/uL (2.5-16.5); LYMPHOCYTES % (AUTO) 17.4 % (20.5-51.1); MEAN CORPUSCULAR HEMOGLOBIN 30 pg (27-31); MEAN CORPUSCULAR HGB CONC 33 g/dL (33-37); MEAN CORPUSCULAR VOLUME 92.6 fL (80-94); MONOCYTES # (AUTO) 0.4 K/uL (0.8-1.0); MONOCYTES % (AUTO) 4.5 % (1.7-9.3); NEUTROPHILS % (AUTO) 75.5 % (42.2-75.2); PLATELET COUNT (AUTO) 251 K/uL (140-450); RED BLOOD CELL COUNT(AUTO) 4.17 MIL/uL (4.20-5.40); RED CELL DISTRIBUTION WIDTH 14.7 % (11.6-13.7); WHITE BLOOD COUNT (AUTO) 9.2 K/uL (4.8-10.8)
[2019-12-08 16:46] LABS: ALBUMIN 3.1 g/dL (3.4-5.0); ANION GAP 9.2 (8-16); ASPARTATE AMINOTRANSFERASE 17 U/L (15-37); CARBON DIOXIDE 31.2 mmol/L (21-32); CHLORIDE 99 mmol/L (98-107); CREATININE 0.7 mg/dL (0.6-1.3); GLUCOSE 121 mg/dL (74-106); LIPASE 47 U/L (73-393); SODIUM SERUM 133 mmol/L (136-145); TOTAL BILIRUBIN 0.2 mg/dL (0.0-1.0); UREA NITROGEN, BLOOD 20 mg/dL (7-18)
[2019-12-08 16:48] LABS: POTASSIUM 6.4 mmol/L (3.5-5.1)
--- NOTE | 2019-12-08 16:49 | NUR ---
CRITICAL VALUE: POTASSIUM 6.[address] MARTINEZ.
--- NOTE | 2019-12-08 17:01 | NUR ---
PT RESTING IN BED, SIDE RAIL X1
[2019-12-08] MEDS ORDERED: FUROSEMIDE 20 MG/2 ML VIAL IVP ONE (17:30)
[2019-12-08] MEDS ORDERED: DEXTROSE 50% 50 ML SYR IVP ONE (17:30)
[2019-12-08] MEDS ORDERED: INSULIN REGULAR, HUMAN 100 UNIT/ML VIAL IVP ONE (17:30)
[2019-12-08] MEDS ORDERED: SODIUM BICARBONATE 8.4% PFS 50 MEQ/50 ML SYR IVP ONE (17:30)
[2019-12-08] MEDS ORDERED: SODIUM POLYSTYRENE 15 GM/60 ML UDBTL PO ONE (17:30)
[2019-12-08] MEDS ORDERED: CALCIUM GLUCONATE 10% 1,000 MG in NACL 0.9% 50 ML IV ONE (17:35)
[2019-12-08] MEDS ORDERED: NACL 0.9% 1,000 ML IV SCH (17:38)
[2019-12-08] MEDS ORDERED: ONDANSETRON 4 MG/2 ML VIAL IVP PRN (17:40)
[2019-12-08] MEDS ORDERED: ACETAMINOPHEN 325 MG TAB PO PRN (17:40)
[2019-12-08] MEDS ORDERED: CALCIUM GLUCONATE 10% 1000 MG/10 ML VIAL ONE (18:07)
[2019-12-08 18:28] LABS: PROTHROMBIN TIME 9.3 secs (10.8-13.4)
[2019-12-08 18:39] LABS: FREE T4 (FREE THYROXINE) 1.04 ng/dL (0.76-1.46); MAGNESIUM 2.2 mg/dL (1.8-2.4); PHOSPHORUS 3.7 mg/dL (2.5-4.9); THYROID STIMULATING HORMONE 0.78 uIU/mL (0.34-3.74)
[2019-12-08 18:45] VITALS: BP 137/37
--- NOTE | 2019-12-08 18:45 | NUR ---
Pt arrived to unit from ER via gurney accompanied by daughter w personal belongings. Pt observed to be A/Ox4 ambulatory w standby assist, pt c/o sob on exertion but denies at this time, o2 saturation on 2lpm via NC 100%. Pt assisted to bed and oriented to room, Dr Cuellar at bedside for Pt intake. Pt states abdominal pain is improving. call light and personal items placed within easy reach. No s/s of acute distress at this time. Report to be endorsed to oncoming nurse.
--- NOTE | 2019-12-08 18:45 | NUR ---
Patient will be admitted to care of [facility]. Admited to TELEMTRY. Will go to room 127B. Belongings list completed. Report to AZAEL ARENAS.
--- NOTE | 2019-12-08 19:15 | NUR ---
PT REMAINS A/O ABLE TO COMMUNICATE NEEDS, NO S/S OF ACUTE DISTRESS NOTED AT THIS TIME. BEDSIDE REPORT ENDORSED TO ONCOMING NURSE ALYSHA.
--- NOTE | 2019-12-08 19:30 | NUR ---
Patient's Plan of Care was discussed and reviewed with FOAMITE MIXER: ALYSHA WHEATLEY
--- NOTE | 2019-12-08 19:40 | NUR ---
Admitted from ER TO TELEMETRY UNIT VIA GURNEY, with chief complaint of epigastric pain x 3 days , 79 y/o ,Female, Cooperative, AWAKE, A/OX4. RESPIRATION EVEN AND UNLABORED. IV SALINE LOCK AT THE RIGHT AC G22, PATENT AND INTACT. PATIENT AMBULATES WITH A WALKER AT HOME. HEAD TO TOE ASSESSMENT DONE WITH AZAEL ZUNIGA, SKIN IS INTACT. SINUS BRADYCARDIA ON TELE MONITORING, 42. ADMISSION DATA AND PLAN OF CARE FOR PATIENT DISCUSSED WITH HELP OF INDUSTRIAL RELATIONS OFFICER AMISH, #[id number]. PAIN IN THE EPIGASTRIC AREA 01/07, WILL MEDICATE ORDER. oriented to call light, bed, phone,television, bathroom, smoking policy,visiting hours, procedures, DISCUSSED ALSO WITH HELP OF INDUSTRIAL RELATIONS OFFICER AMISH. ID bracelet on. Belongings list checked. SAFETY MEASURES ENFORCED BED IN THE LOWEST POSITION, SIDE RAILS UP, BED ON ALARM, CALL LIGHT IN REACH.
[2019-12-08] MEDS ORDERED: DEXTROSE 50% 50 ML SYR IVP PRN (19:45)
[2019-12-08] MEDS ORDERED: INSULIN LISPRO SLIDING SCALE 100 UNITS/ML VIAL SUBQ PRN (19:45)
--- NOTE | 2019-12-08 19:51 | NUR ---
PATIENT IS AWAKE, ALERT, AND COOPERATIVE. RESPIRATION EVEN UNLABORED ON ROOM AIR. NO DISTRESS NOTED. HEART RATE WADE RUNNING 40'S. LUNGS SOUNDS CLEAR ON AUSCULTATION. NO DISTRESS NOTED. BOWEL SOUNDS ACTIVE IN ALL 4 QUADRANTS. ABDOMEN SOFT AND NON-TENDER. SKIN IS WARM AND DRY. IV PATENT AND INTACT. PLAN OF CARE WAS DISCUSSED. ALL SAFETY MEASURES IN PLACE. BED IS AT LOW POSITION. CALL LIGHT WITHIN REACH. WILL CONTINUE TO MONITOR.
[2019-12-08 20:00] VITALS: BP 122/81
[2019-12-08] MEDS ORDERED: METO25TA PO (20:17)
[2019-12-08] MEDS ORDERED: PANTOPRAZOLE 40 MG INJ VIAL IVP SCH (20:30)
[2019-12-08] MEDS ORDERED: HYDROcodone/APAP 10/325 MG 1 TAB TAB PO PRN (20:40)
[2019-12-08] MEDS ORDERED: METOCLOPRAMIDE 10 MG TAB PO PRN (20:40)
[2019-12-08] MEDS ORDERED: MECLIZINE 25 MG TAB PO PRN (20:40)
[2019-12-08] MEDS ORDERED: LIDOCAINE VISCOUS 2% 20 ML UDC PO SCH (20:40)
[2019-12-08] MEDS ORDERED: DICYCLOMINE HCL LIQUID 10 MG/5 ML UDC PO SCH (20:40)
[2019-12-08] MEDS ORDERED: NITROGLYCERIN 0.4 MG TAB SL PRN (20:40)
[2019-12-08] MEDS ORDERED: LORazepam 0.5 MG TAB PO SCH (20:40)
[2019-12-08] MEDS ORDERED: ALUMINUM HYD/MAG/SIMETHICONE 30 ML UDC PO SCH (20:40)
[2019-12-08] MEDS: DEXT 5% / NACL 0.9% 500 ML IV SCH (20:55)
[2019-12-08] MEDS ORDERED: ALBUTEROL SULFATE/IPRATROPIU 3 ML SOL IH PRN (20:55)
[2019-12-08] MEDS: FUROSEMIDE 20 MG/2 ML VIAL IVP SCH (21:00)
[2019-12-08] MEDS ORDERED: METOPROLOL 25 MG TAB PO SCH (21:00)
[2019-12-08] MEDS: BLOOD GLUCOSE MONITORING 1 DEV DEV FS SCH (21:00)
--- NOTE | 2019-12-08 21:00 | NUR ---
LASIX IV NOT GIVEN BY AZAEL ZUNIGA PER VERBAL INSTRUCTION OF DR. ROD, WILL BE GIVEN TOMORROW. METROPOLOL NOT GIVEN, HR IN THE 40s. AWARE.
[2019-12-08 21:28] LABS: ANION GAP 6.2 (8-16); CARBON DIOXIDE 34.7 mmol/L (21-32); CHLORIDE 102 mmol/L (98-107); CREATININE 0.8 mg/dL (0.6-1.3); GLUCOSE 112 mg/dL (74-106); POTASSIUM 4.9 mmol/L (3.5-5.1); SODIUM SERUM 138 mmol/L (136-145); UREA NITROGEN, BLOOD 21 mg/dL (7-18)
[2019-12-08] MEDS: PREGABALIN 50 MG CAP PO SCH (22:31)
[2019-12-08] MEDS: SUCRALFATE 1 GM TAB PO SCH (22:32)
[2019-12-08] MEDS: DOCUSATE SODIUM 100 MG GELCAP PO SCH (22:33)
--- NOTE | 2019-12-08 22:35 | NUR ---
DUE PO MEDICATIONS GIVEN.
[2019-12-08] MEDS ORDERED: LORazepam 0.5 MG TAB PO PRN (22:45)
--- NOTE | 2019-12-08 23:40 | NUR ---
RECEIVED PATIENT ON ROOM AIR, 97%. PT DENIES SOB. PRN HHN NOT INDICATED AT THIS TIME. NO ACUTE RESPIRATORY DISTRESS NOTED. WILL CONTINUE TO MONITOR.
[2019-12-09] VITALS: BP 133/33
--- NOTE | 2019-12-09 | NUR ---
SLEEPING COMFORTABLY IN BED.
--- NOTE | 2019-12-09 01:08 | NUR ---
HR DROPPED TO 30 BUT POPS BACK UP QUICKLY TO 35, PER NOTED BY ENGINEERING PROGRAMMER BOBBIE. DR. ALDRIDGE AWARE. PATIENT RESTING COMFORTABLY SLEEPING IN BED, NO DISTRESS NOTED.
[2019-12-09 04:00] VITALS: BP 93/39
--- NOTE | 2019-12-09 04:00 | NUR ---
STILL SLEEPING COMFORTABLY IN BED.
[2019-12-09] MEDS: BLOOD GLUCOSE MONITORING 1 DEV DEV FS SCH ×4 (05:39→20:32)
[2019-12-09 06:20] LABS: MAGNESIUM 2.2 mg/dL (1.8-2.4); PHOSPHORUS 4.4 mg/dL (2.5-4.9)
[2019-12-09 06:25] LABS: ANION GAP 8.6 (8-16); CARBON DIOXIDE 33.8 mmol/L (21-32); CHLORIDE 102 mmol/L (98-107); CREATININE 0.9 mg/dL (0.6-1.3); GLUCOSE 96 mg/dL (74-106); POTASSIUM 5.4 mmol/L (3.5-5.1); SODIUM SERUM 139 mmol/L (136-145); UREA NITROGEN, BLOOD 23 mg/dL (7-18)
[2019-12-09 06:30] LABS: BASOPHILS # (AUTO) 0.1 K/uL (0.00-0.22); BASOPHILS % (AUTO) 0.7 % (0.0-2.0); EOSINOPHILS # (AUTO) 0.2 K/uL (0-0.4); EOSINOPHILS % (AUTO) 3.3 % (0.0-4.0); HEMATOCRIT 33.9 % (36-48); HEMOGLOBIN 11.2 g/dL (12.0-16.0); LYMPHOCYTES # (AUTO) 2.9 K/uL (2.5-16.5); LYMPHOCYTES % (AUTO) 39.2 % (20.5-51.1); MEAN CORPUSCULAR HEMOGLOBIN 31 pg (27-31); MEAN CORPUSCULAR HGB CONC 33 g/dL (33-37); MEAN CORPUSCULAR VOLUME 92.8 fL (80-94); MONOCYTES # (AUTO) 0.6 K/uL (0.8-1.0); MONOCYTES % (AUTO) 8.2 % (1.7-9.3); NEUTROPHILS # (AUTO) 3.6 K/uL (1.8-7.7); NEUTROPHILS % (AUTO) 48.6 % (42.2-75.2); PLATELET COUNT (AUTO) 245 K/uL (140-450); RED BLOOD CELL COUNT(AUTO) 3.66 MIL/uL (4.20-5.40); RED CELL DISTRIBUTION WIDTH 14.7 % (11.6-13.7); WHITE BLOOD COUNT (AUTO) 7.5 K/uL (4.8-10.8)
[2019-12-09] MEDS ORDERED: metFORMIN 500 MG TAB PO SCH ×2 (06:30→07:13)
--- NOTE | 2019-12-09 07:20 | NUR ---
ABLE TO SLEPT WELL. CONDITION REMAIN STABLE. ENDORSED TO AM SHIFT NURSE FOR CONTINUITY OF CARE.
--- NOTE | 2019-12-09 07:20 | NUR ---
RECEIVED REPORT FROM NURSE WHEATLEY. PT AROUSABLE TO NAME, NO C/O PAIN. PT ON FINANCE ADMIN, SB, TO BE SEEN BY DR. LEY. IV ON RT AC 22 GA RUNNING IVF PER ORDER, DRESSING I/C/D. RESPIRATIONS EVEN AND UNLABORED ON RA. ABD SOFT, ACTIVE BS. PT ON FALL RISK PRECAUTIONS, SAFETY MEASURES IN PLACE, CALL LIGHT WITHIN REACH. SKIN IS INTACT, WARM TO TOUCH. REVIEWED POC WITH PT, PT VERBALIZED UNDERSTANDING.
[2019-12-09 08:00] VITALS: BP 127/35
[2019-12-09] MEDS: FUROSEMIDE 20 MG/2 ML VIAL IVP SCH ×2 (08:28→20:23)
[2019-12-09] MEDS: PANTOPRAZOLE 40 MG INJ VIAL IVP SCH (08:28)
--- NOTE | 2019-12-09 08:30 | NUR ---
PATIENT HAS BEEN SCREENED AND CATEGORIZED MODERATE NUTRITION RISK. PATIENT WILL BE SEEN WITHIN 3-5 DAYS OF ADMISSION. 12/11/19 12/13/[address]
[2019-12-09] MEDS: PREGABALIN 50 MG CAP PO SCH ×2 (08:31→20:22)
[2019-12-09] MEDS: HYDROcodone/APAP 10/325 MG 1 TAB TAB PO PRN ×2 (08:31→14:47)
[2019-12-09] MEDS: DOCUSATE SODIUM 100 MG GELCAP PO SCH (08:32)
[2019-12-09] MEDS: SUCRALFATE 1 GM TAB PO SCH ×4 (08:32→20:22)
[2019-12-09] MEDS: hydrALAZINE 25 MG TAB PO SCH ×3 (08:33→17:00)
[2019-12-09] MEDS: CALCIUM CARBONATE 500 MG TAB PO SCH (08:34)
--- NOTE | 2019-12-09 08:37 | NUR ---
ADMINISTERED MEDICATIONS PER ORDER, PT VERBALIZED UNDERSTANDING OF INDICATIONS AND POTENTIAL SIDE EFFECTS.
[2019-12-09] MEDS ORDERED: SODIUM POLYSTYRENE 15 GM/60 ML UDBTL PO SCH (10:00)
[2019-12-09] MEDS ORDERED: LACTULOSE 20 GM/30 ML UDC PO SCH (10:00)
--- NOTE | 2019-12-09 10:40 | NUR ---
PT IS AWARE THAT SHE NEEDS TO PROVIDE URINE SAMPLE, PROVIDED SPECIMEN CUP.
--- NOTE | 2019-12-09 11:28 | NUR ---
REGISTERED DIETETIC TECHNICIAN DISCHARGE ASSESSMENT [facility] Patient: Pooja Tillman : 1940 Age/Sex: 79/F Unit#: [id number] Room/Bed: 127/B User: Nenita Huerta CM Date: 12/09/19 11:03 Type: CM: Discharge Planning Basic Screen: No High Risk DC Screen Yes Name: Abel Tillman [facility] Relationship: Son Pre-Admission Living Arrangements: Lives with Other Other: Lives with family Prior ADL Needs Assistance Current Home Health Name/Tel: [facility] Information Taught: Advance Directive Person Taught: Patient Teaching Tools: Verbal Participation Level: Active Evaluation: Demonstrate Understanding Discipline: Case Mgt/Social Svcs Tentative Discharge Plan/Destination: Home Health Will require assistance post discharge: No Referred to Chro: No Tentative Discharge Plan Summary: 79 y/o female admitted for chest pressure, ACSDHF w/pulmonary vascular congestion on CXR. Pt with hx of CHF, asthma, hypertension and DM. SW met with pt at the bedside. Pt was a&o x4, mood and affect appropriate with the situation. Sw verified demographics and phone #. Pt report she lives with family. Pt ambulates with a cane/walker, has wheelchair and inhaler. Pt needs some assistance with ADLs which is provided by family. Pt stated she was receiving services from [facility] in [facility] and would like to resume upon dc. Pt denied any hx of ETOH, tobacco use and/or mental health. DC plan to home once medically cklear. Signature: Nenita Huerta LCSW Date: Dec 09, 2019
--- NOTE | 2019-12-09 11:45 | NUR ---
COLLECTED URINE SAMPLE, PT HAS NO REPORTS OF DYSURIA OR FREQUENCY.
[2019-12-09 12:00] VITALS: BP 130/38
[2019-12-09 13:44] LABS: APPEARANCE,URINE CLEAR (CLEAR); BILIRUBIN,URINE NEGATIVE (NEGATIVE); BLOOD, URINE NEGATIVE (NEGATIVE); COLOR,URINE YELLOW (YELLOW); LEUKOCYTE ESTERASE ,URINE NEGATIVE (NEGATIVE); NITRITE, URINE NEGATIVE (NEGATIVE); UGLUCOSE NEGATIVE (NEGATIVE)
[2019-12-09] MEDS ORDERED: BISACODYL 5 MG TABEC PO SCH (14:15)
--- NOTE | 2019-12-09 14:15 | NUR ---
ULTRASOUND AT BEDSIDE, PT HAS NO S/S OF DISTRESS. WILL CONTINUE TO MONITOR.
[2019-12-09 15:07] LABS: CARBON DIOXIDE 36.7 mmol/L (21-32); CHLORIDE 101 mmol/L (98-107); CREATININE 0.9 mg/dL (0.6-1.3); GLUCOSE 93 mg/dL (74-106); POTASSIUM 4.7 mmol/L (3.5-5.1); SODIUM SERUM 140 mmol/L (136-145); UREA NITROGEN, BLOOD 22 mg/dL (7-18)
--- NOTE | 2019-12-09 15:47 | NUR ---
NOTIFIED DR. GARCIA THAT POTASSIUM LEVEL IS NOW 4.7, PER PHYSICIAN, NOTIFY DR. LEY REGARDING PT'S CHANGES IN HEART RATE. NO NEW ORDERS RECEIVED.
[2019-12-09 16:00] VITALS: BP 123/75
--- NOTE | 2019-12-09 16:30 | NUR ---
DR. LEY NOTIFIED REGARDING PT'S LOW HEART RATE, AWAITING ORDERS.
--- NOTE | 2019-12-09 16:35 | NUR ---
PER PT, SHE TAKES "NORCO AND LYRICA" FOR PAIN AT HOME AND STILL TAKES CYMBALTA, DR. GARCIA NOTIFIED.
--- NOTE | 2019-12-09 16:40 | NUR ---
NOTIFIED BLANQUITA FROM [facility] THAT WE HAVE RECEIVED FAX/HEALTH INFORMATION FROM [facility] FROM [facility], DR. GARCIA AWARE. PT HAS FOLLOW-UP APPOINTMENT. Addendum: 12/09/19 at 1642 by Jackeline Macdonald RN [facility].
[2019-12-09] MEDS ORDERED: KETOROLAC 15 MG/ML VIAL IVP SCH (16:55)
--- NOTE | 2019-12-09 19:05 | NUR ---
ENDORSED PT TO AZAEL MILIAN. PT HAS NO S/S OF DISTRESS AT THIS TIME.
--- NOTE | 2019-12-09 19:19 | NUR ---
RECEIVED BEDSIDE REPORT FROM DAY SHIFT NURSE. PATIENT IS AWAKE, ALERT, AND COOPERATIVE. RESPIRATION EVEN UNLABORED ON ROOM AIR. NO DISTRESS NOTED. SKIN IS WARM AND DRY. IV PATENT AND INTACT. FAMILY AT BEDSIDE. PLAN OF CARE WAS DISCUSS. ALL SAFETY MEASURE IN PLACE. BED IS AT LOW POSITION. CALL LIGHT WITHIN REACH AND VERBALIZES ITS USE. WILL CONTINUE TO MONITOR.
[2019-12-09 20:00] VITALS: BP 144/45
--- NOTE | 2019-12-09 20:05 | NUR ---
INITIAL ASSESSMENT DONE. VITALS WERE TAKEN. NO DISTRESS NOTED. WILL CONTINUE TO MONITOR.
--- NOTE | 2019-12-09 20:20 | NUR ---
PATIENT ACCIDENTALLY PULLED HER IV. INSERTED NEW ONE RIGHT AC 20G. TOLERATED IT WELL. WILL CONTINUE TO MONITOR.
[2019-12-09] MEDS: DULoxetine 30 MG CAPDR PO SCH (20:22)
--- NOTE | 2019-12-09 20:30 | NUR ---
ALL SCHEDULED MEDS WERE GIVEN PER ORDER. NO ASE NOTED. WILL CONTINUE TO MONITOR.
[2019-12-09] MEDS: DEXT 5% / NACL 0.9% 500 ML IV SCH (20:55)
--- NOTE | 2019-12-09 21:35 | NUR ---
PATIENT ON THE PHONE RESPIRATION EVEN UNLABORED ON ROOM AIR. NO DISTRESS NOTED. WILL CONTINUE TO MONITOR.
[2019-12-10] VITALS: BP 143/50
--- NOTE | 2019-12-10 00:07 | NUR ---
VITALS WERE TAKEN. PATIENT IS IN STABLE CONDITION. NO DISTRESS NOTED. WILL CONTINUE TO MONITOR.
[2019-12-10] MEDS: HYDROcodone/APAP 10/325 MG 1 TAB TAB PO PRN (01:51)
--- NOTE | 2019-12-10 01:51 | NUR ---
PATIENT COMPLAINED OF BACK PAIN 03/09. PRN PAIN MED ADMINISTERED PER ORDER. WILL CONTINUE TO MONITOR.
[2019-12-10 04:00] VITALS: BP 140/55
--- NOTE | 2019-12-10 04:45 | NUR ---
PATIENT WENT TO CT IN STABLE CONDITION. AWAITING TO COME BACK
--- NOTE | 2019-12-10 05:00 | NUR ---
PATIENT CAME BACK FROM THE UNIT IN STABLE CONDITION.
[2019-12-10] MEDS: BLOOD GLUCOSE MONITORING 1 DEV DEV FS SCH (05:48)
[2019-12-10 05:58] LABS: BASOPHILS # (AUTO) 0.1 K/uL (0.00-0.22); BASOPHILS % (AUTO) 0.9 % (0.0-2.0); EOSINOPHILS # (AUTO) 0.5 K/uL (0-0.4); HEMATOCRIT 36.9 % (36-48); HEMOGLOBIN 12.1 g/dL (12.0-16.0); LYMPHOCYTES # (AUTO) 2.9 K/uL (2.5-16.5); LYMPHOCYTES % (AUTO) 34.8 % (20.5-51.1); MEAN CORPUSCULAR HEMOGLOBIN 31 pg (27-31); MEAN CORPUSCULAR HGB CONC 33 g/dL (33-37); MEAN CORPUSCULAR VOLUME 93.4 fL (80-94); MONOCYTES # (AUTO) 0.6 K/uL (0.8-1.0); MONOCYTES % (AUTO) 7.7 % (1.7-9.3); NEUTROPHILS # (AUTO) 4.2 K/uL (1.8-7.7); NEUTROPHILS % (AUTO) 50.6 % (42.2-75.2); PLATELET COUNT (AUTO) 243 K/uL (140-450); RED BLOOD CELL COUNT(AUTO) 3.95 MIL/uL (4.20-5.40); RED CELL DISTRIBUTION WIDTH 14.8 % (11.6-13.7); WHITE BLOOD COUNT (AUTO) 8.3 K/uL (4.8-10.8)
[2019-12-10 06:41] LABS: ALBUMIN 2.9 g/dL (3.4-5.0); ANION GAP 7.2 (8-16); ASPARTATE AMINOTRANSFERASE 36 U/L (15-37); CARBON DIOXIDE 35.2 mmol/L (21-32); CHLORIDE 98 mmol/L (98-107); CREATININE 0.9 mg/dL (0.6-1.3); GLUCOSE 99 mg/dL (74-106); POTASSIUM 4.4 mmol/L (3.5-5.1); SODIUM SERUM 136 mmol/L (136-145); TOTAL BILIRUBIN 0.3 mg/dL (0.0-1.0); UREA NITROGEN, BLOOD 20 mg/dL (7-18)
[2019-12-10 06:44] LABS: PHOSPHORUS 4.4 mg/dL (2.5-4.9)
--- NOTE | 2019-12-10 07:17 | NUR ---
RECEIVED REPORT FROM NIGHT NURSE FOR CONTINUITY OF CARE, PT IS STABLE, [id number], PT HAS RIGHT AC 20G INFUSING D5NS AT 20 ML/H, PT IS POLISH SPEAKING, INTRODUCE SELF, UPDATED WHITEBOARD, SAFETY MEASURES IN PLACE, CALL LIGHT WITHIN REACH, ALL NEEDS MET, WILL CONTINUE TO MONITOR.
--- NOTE | 2019-12-10 07:18 | NUR ---
ENDORSED PATIENT TO DAY SHIFT NURSE. PATIENT IS IN STABLE CONDITION.
[2019-12-10 08:00] VITALS: BP 121/70
[2019-12-10 08:17] LABS: AMYLASE 22 U/L (25-115); LIPASE 48 U/L (73-393)
[2019-12-10] MEDS: PANTOPRAZOLE 40 MG INJ VIAL IVP SCH (09:00)
[2019-12-10] MEDS: FUROSEMIDE 20 MG/2 ML VIAL IVP SCH (09:00)
[2019-12-10] MEDS: SUCRALFATE 1 GM TAB PO SCH (09:35)
[2019-12-10] MEDS: hydrALAZINE 25 MG TAB PO SCH (09:36)
[2019-12-10] MEDS: DULoxetine 30 MG CAPDR PO SCH (09:36)
[2019-12-10] MEDS: CALCIUM CARBONATE 500 MG TAB PO SCH (09:36)
[2019-12-10] MEDS: PREGABALIN 50 MG CAP PO SCH (09:37)
[2019-12-10] MEDS ORDERED: LACTULOSE 20 GM/30 ML UDC PO SCH (10:00)
--- NOTE | 2019-12-10 10:00 | NUR ---
NOTIFIED DR XIONG, PT'S IV ACCESS IS LEAKING AND TO CHANGE IV MEDS TO PO, WILL GIVE PO MEDICATION ONCE THEY BECOME AVAILABLE.
[2019-12-10] MEDS ORDERED: PANTOPRAZOLE 40 MG TABEC PO SCH (10:38)
[2019-12-10] MEDS ORDERED: FUROSEMIDE 20 MG TAB PO SCH (10:38)
--- NOTE | 2019-12-10 11:30 | NUR ---
PT DISCHARGED HOME, INSTRUCTIONS GIVEN, PT VERBALIZED UNDERSTANDING, PT STABLE, PT USED WHEELCHAIR TO LEAVE THE HOSPITAL. PT FLU VACCINE UP TO DATE, PT PNA IN 2017.
== END 2019-12-10 11:51 | disposition home or self-care (01) | DRG 291 ==
LOC: MED 15:01 → MMU 17:45
PROVIDERS: ADMIT General Practice; ATTEND General Practice
DX: I11.0 Hypertensive heart disease with heart failure (principal); E43 Unspecified severe protein-calorie malnutrition; Z68.43 Body mass index [BMI] 50.0-59.9, adult; K21.9 Gastro-esophageal reflux disease without esophagitis; I50.43 Acute on chronic combined systolic (congestive) and diastolic (congestive) heart failure; K29.00 Acute gastritis without bleeding; E66.01 Morbid (severe) obesity due to excess calories; Z71.3 Dietary counseling and surveillance; D64.9 Anemia, unspecified; G89.29 Other chronic pain; J45.909 Unspecified asthma, uncomplicated; K59.03 Drug induced constipation; T40.605A Adverse effect of unspecified narcotics, initial encounter; M19.90 Unspecified osteoarthritis, unspecified site; E87.5 Hyperkalemia; Z96.651 Presence of right artificial knee joint; F32.9 Major depressive disorder, single episode, unspecified; F41.0 Panic disorder [episodic paroxysmal anxiety]; E11.40 Type 2 diabetes mellitus with diabetic neuropathy, unspecified; K29.50 Unspecified chronic gastritis without bleeding; Y92.89 Other specified places as the place of occurrence of the external cause; Z90.49 Acquired absence of other specified parts of digestive tract; Z79.82 Long term (current) use of aspirin; Z79.899 Other long term (current) drug therapy; Z90.710 Acquired absence of both cervix and uterus; Z95.5 Presence of coronary angioplasty implant and graft
CPT/HCPCS: 36415; 71045; 71270; 76700; 80048; 80053; 81003; 82150; 82948; 83036; 83690; 83735; 83880; 84100; 84439; 84443; 84484; 85025; 85610; 85730; 87081; 93005; 96374; 96375; 97116; 97161-GP; 97530; 99285; C9113; J0610; J1644; J1815; J1885; J1940; J2270; J2405; J7042; Q0092; Q9967

== ENCOUNTER 2020-01-05 23:17 | Emergency (ER) | payer OTHER ==
[~2020-01-05] VITALS: Ht 162.6 cm; Wt 108.1 kg
[~2020-01-05 23:17] MED LIST changes: -CLON0.2T43 PO; -LISI-420 PO; -LISI40TA4 PO; +METO25TA PO; -METO25TE2 PO
[2020-01-05 23:30] VITALS: BP 146/59
[2020-01-06] MEDS ORDERED: ACETAMINOPHEN EXTRA STRENGTH 500 MG TAB PO ONE (01:00)
[2020-01-06 01:25] LABS: BASOPHILS # (AUTO) 0.1 K/uL (0.00-0.22); BASOPHILS % (AUTO) 0.8 % (0.0-2.0); EOSINOPHILS # (AUTO) 0.4 K/uL (0-0.4); EOSINOPHILS % (AUTO) 4.2 % (0.0-4.0); HEMATOCRIT 39.4 % (36-48); HEMOGLOBIN 12.9 g/dL (12.0-16.0); LYMPHOCYTES # (AUTO) 2.3 K/uL (2.5-16.5); LYMPHOCYTES % (AUTO) 25.7 % (20.5-51.1); MEAN CORPUSCULAR HEMOGLOBIN 30 pg (27-31); MEAN CORPUSCULAR HGB CONC 33 g/dL (33-37); MEAN CORPUSCULAR VOLUME 93.2 fL (80-94); MONOCYTES # (AUTO) 0.7 K/uL (0.8-1.0); MONOCYTES % (AUTO) 7.8 % (1.7-9.3); NEUTROPHILS # (AUTO) 5.5 K/uL (1.8-7.7); NEUTROPHILS % (AUTO) 61.5 % (42.2-75.2); PLATELET COUNT (AUTO) 244 K/uL (140-450); RED BLOOD CELL COUNT(AUTO) 4.22 MIL/uL (4.20-5.40); RED CELL DISTRIBUTION WIDTH 13.8 % (11.6-13.7)
[2020-01-06 01:43] LABS: ALBUMIN 3.3 g/dL (3.4-5.0); ANION GAP 9.4 (8-16); ASPARTATE AMINOTRANSFERASE 15 U/L (15-37); CARBON DIOXIDE 32.6 mmol/L (21-32); CHLORIDE 103 mmol/L (98-107); CREATININE 0.8 mg/dL (0.6-1.3); GLUCOSE 119 mg/dL (74-106); SODIUM SERUM 140 mmol/L (136-145); TOTAL BILIRUBIN 0.3 mg/dL (0.0-1.0); UREA NITROGEN, BLOOD 12 mg/dL (7-18)
[2020-01-06 02:05] LABS: CREATINE KINASE MB 0.7 ng/mL (0-3.6)
[2020-01-06 02:45] VITALS: BP 184/70
== END 2020-01-06 02:45 | disposition left against medical advice (07) ==
LOC: MED 23:17
DX: I11.0 Hypertensive heart disease with heart failure (principal); R51 Headache; R79.89 Other specified abnormal findings of blood chemistry; I50.9 Heart failure, unspecified; E11.9 Type 2 diabetes mellitus without complications; K21.9 Gastro-esophageal reflux disease without esophagitis; Z98.890 Other specified postprocedural states; Z79.84 Long term (current) use of oral hypoglycemic drugs; Z79.82 Long term (current) use of aspirin; Z79.899 Other long term (current) drug therapy
CPT/HCPCS: 36415; 70450; 71045; 80053; 82550; 82553; 84484; 85025; 93005; 99283; Q0092

== ENCOUNTER 2021-04-09 11:13 | Inpatient (IN) | payer OTHER, SELFPAY ==
[~2021-04-09] VITALS: Ht 147.3 cm; Wt 117.9 kg
[~2021-04-09 11:13] MED LIST changes: +OMEP-278 PO; -OMEP20TC12 PO
--- NOTE | 2021-04-09 11:21 | NUR ---
Patient ambulated with steady gait to bed 1.
[2021-04-09 11:24] VITALS: BP 127/33
--- NOTE | 2021-04-09 11:40 | NUR ---
80 YEAR OLD FEMALE COMPLAINS OF ABDOMINAL PAIN, NAUSEA, AND VOMITTING X 1 MONTH. PT STATES PAIN IS DESCRIBED "HARD". PT ALSO COMPLAINS OF HEADACHE /. PT DENIES BLOOD IN STOOL OR VOMIT. PT AOX4, BREATHING EVEN AND UNLABORED, SKIN WARM AND DRY. BED IN LOWEST POSITION, LOCKED, BED RAIL UPX1. PMH - DM2, HTN, ARTHRITIS ALLERGIES - NKA
[2021-04-09] MEDS ORDERED: DICYCLOMINE HCL LIQUID 20 MG, ALUMINUM HYD/MAG/SIMETHICONE 30 ML, LIDOCAINE VISCOUS 2% ... PO ONE ×3 (12:10)
[2021-04-09] MEDS ORDERED: ALUMINUM HYD/MAG/SIMETHICONE 30 ML UDC ONE (12:16)
[2021-04-09] MEDS ORDERED: DICYCLOMINE HCL LIQUID 10 MG/5 ML UDC ONE (12:16)
[2021-04-09 12:40] LABS: BASOPHILS # (AUTO) 0.2 K/uL (0.00-0.22); BASOPHILS % (AUTO) 1.3 % (0.0-2.0); EOSINOPHILS # (AUTO) 0.1 K/uL (0-0.4); EOSINOPHILS % (AUTO) 1.2 % (0.0-4.0); HEMATOCRIT 34.4 % (36-48); HEMOGLOBIN 11.2 g/dL (12.0-16.0); LYMPHOCYTES # (AUTO) 1.4 K/uL (2.5-16.5); LYMPHOCYTES % (AUTO) 12.4 % (20.5-51.1); MEAN CORPUSCULAR HEMOGLOBIN 30 pg (27-31); MEAN CORPUSCULAR HGB CONC 33 g/dL (33-37); MEAN CORPUSCULAR VOLUME 92.1 fL (80-94); MONOCYTES # (AUTO) 0.8 K/uL (0.8-1.0); MONOCYTES % (AUTO) 6.9 % (1.7-9.3); NEUTROPHILS # (AUTO) 8.9 K/uL (1.8-7.7); NEUTROPHILS % (AUTO) 78.2 % (42.2-75.2); PLATELET COUNT (AUTO) 425 K/uL (140-450); RED BLOOD CELL COUNT(AUTO) 3.73 MIL/uL (4.20-5.40); RED CELL DISTRIBUTION WIDTH 14.9 % (11.6-13.7); WHITE BLOOD COUNT (AUTO) 11.4 K/uL (4.8-10.8)
[2021-04-09 13:01] LABS: ALBUMIN 2.9 g/dL (3.4-5.0); ANION GAP 11.5 (8-16); ASPARTATE AMINOTRANSFERASE 16 U/L (15-37); CARBON DIOXIDE 31.2 mmol/L (21-32); CHLORIDE 98 mmol/L (98-107); CREATININE 1.1 mg/dL (0.6-1.3); GLUCOSE 125 mg/dL (74-106); LIPASE 49 U/L (73-393); POTASSIUM 3.7 mmol/L (3.5-5.1); SODIUM SERUM 137 mmol/L (136-145); TOTAL BILIRUBIN 0.2 mg/dL (0.0-1.0); UREA NITROGEN, BLOOD 19 mg/dL (7-18)
[2021-04-09] MEDS ORDERED: MORPHINE SULFATE 4 MG/ML SYR IM ONE (13:15)
[2021-04-09] MEDS ORDERED: MORPHINE SULFATE 4 MG/ML SYR IVP ONE (13:20)
--- NOTE | 2021-04-09 13:30 | NUR ---
PT ALERT AND AWAKE, BREATHING EVEN AND UNLABORED. NO DISTRESS NOTED. ALL NEEDS MET AT THIS TIME WILL CONTINUE TO MONITOR.
[2021-04-09] MEDS ORDERED: IMO2 PO (14:17)
[2021-04-09] MEDS ORDERED: PREG100C PO (14:17)
[2021-04-09] MEDS ORDERED: METH150T PO (14:17)
[2021-04-09] MEDS ORDERED: APR10 PO (14:17)
[2021-04-09] MEDS ORDERED: OMEP40EC24 PO (14:17)
[2021-04-09] MEDS ORDERED: METR500S14 IV (14:17)
[2021-04-09] MEDS ORDERED: TORS100T14 PO (14:17)
[2021-04-09] MEDS ORDERED: CARV6.25 PO (14:17)
[2021-04-09] MEDS ORDERED: LOSA100T1 PO (14:17)
[2021-04-09] MEDS ORDERED: NACL 0.9% 1,000 ML IV ONE (14:20)
[2021-04-09] MEDS ORDERED: HYDROcodone/APAP 5/325 MG 1 TAB TAB PO PRN (14:20)
--- NOTE | 2021-04-09 14:53 | NUR ---
RECEIVED REPORT FROM ER NURSE KARINA PATIENT 80 Y/O FEMALE WITH CHIEF COMPLAIN OF ABDOMINAL PAIN, N/V FOR THE PAST 1 MONTH, DIAGNOSIS OF ABDOMINAL PAIN, NO KNOWN ALLERGIES, HISTORY OF DM, HTN, ARTHRITIS, COVID VACCINE COMPLETE CAME FROM HOME, PT IS AAOX4, AMBULATORY, ROOM AIR AND SKIN INTACT, LAST BLOOD SUGAR 125 MG/DL, ON NPO EXCEPT MEDICATIONS, IV INTACT ON RIGHT AC GAUGE 20 WITH SODIUM CHLORIDE 0.9% 1000 ML AT 100 MLS/HR. MORPHINE 4 MG GIVEN 90 MINS AGO.
[2021-04-09 15:15] VITALS: BP 121/49
--- NOTE | 2021-04-09 15:15 | NUR ---
PATIENT BROUGHT TO THE UNIT VIA GURNEY, ASSISTED TO PATIENT BED, CHECK VITAL SIGNS, CHANGED PT GOWN, SOCKS AND FALL RISK ARIZMENDI IN PLACE, ORIENTED TO ROOM,SAFETY MEASURES IN PLACE AND CALL LIGHT WITHIN REACH. WILL CONTINUE TO MONITOR.
--- NOTE | 2021-04-09 15:15 | NUR ---
Patient will be admitted to care of Dr Izquierdo. Admited to Tele. Will go to room 110A. Belongings list completed. Report to Cecilia.
--- NOTE | 2021-04-09 15:25 | NUR ---
MRSA NARES DONE ON BOTH RIGHT AND LEFT NARES AND SENT TO LAB. PT TOLERATED WELL.
--- NOTE | 2021-04-09 15:59 | NUR ---
INFORMED DR ANNE CRAIG FOR CONSULT ON PATIENT DX; ABDOMINAL PAIN.
--- NOTE | 2021-04-09 16:19 | NUR ---
ADMINISTERED SCHEDULED MEDICATION ROCEPHIN 1000 MG INFUSING WELL.
--- NOTE | 2021-04-09 17:05 | NUR ---
SPOKE WITH DR CAR AND GAVE UPDATES ON THE STATUS OF THE PATIENT, ORDER PT NPO AFTER MIDNIGHT FOR POSSIBLE EGD.
--- NOTE | 2021-04-09 19:30 | NUR ---
RECEIVED REPORT FROM RN DAYSHIFT NURSE AT BEDSIDE FOR CONTINUITY OF CARE, PT IN STABLE CONDITION. PT SITTING UP IN BED AOX4 SAMI SPEAKING. SHE HAS A RAC 20GUAGE INTACT AND RUNNING NORMAL SALINE AT 100MLS/HR. ALL FALLS PRECAUTIONS IN PLACE.
--- NOTE | 2021-04-09 19:31 | NUR ---
ENDORSED TO NIGHT NURSE FOR CONTINUITY OF CARE.
[2021-04-09 20:00] VITALS: BP 112/30
[2021-04-09] MEDS: metroNIDAZOLE 250 MG TAB PO SCH (20:12)
[2021-04-09] MEDS: MORPHINE SULFATE 2 MG/ML SYR IVP PRN (20:18)
--- NOTE | 2021-04-09 20:30 | NUR ---
PT SITTING UP IN BED AOX4 NORMAL SALINE RUNNING AT 100MLS/HR ORDERED. V/S FOLLOWS: T 98.5 P 64 R 20 B/P 112/30 02 93% ON ROOM AIR. PT C/O OF 7/10 HEADACHE AND STOMACH PAIN, SHE WAS GIVEN IVP/PRN MORPHINE . ALL FALLS PRECAUTIONS IN PLACE.
--- NOTE | 2021-04-09 21:00 | NUR ---
FLAGYL HUNG AND RUNNING ORDERED AT 100MLS/HR. PT EDUCATION REGARDING MEDICATION AND SIDE EFFECTS PROVIDED AT BEDSIDE, PT VERBALIZED UNDERSTANDING.
[2021-04-09] MEDS ORDERED: hydrALAZINE 20 MG/ML VIAL IVP SCH (21:30)
[2021-04-09] MEDS ORDERED: carvediloL 6.25 MG TAB PO ONE (21:36)
[2021-04-09] MEDS ORDERED: LOSARTAN 50 MG TAB PO ONE (21:36)
--- NOTE | 2021-04-09 22:00 | NUR ---
PT ASLEEP IN BED NORMAL SALINE HUNG AND RUNNING AT 100MLS/HR ORDERED. ALL ORDERED PRECAUTIONS IN PLACE.
[2021-04-09] MEDS ORDERED: ONDANSETRON 4 MG/2 ML VIAL IVP PRN (23:45)
[2021-04-10] VITALS: BP 154/43
[2021-04-10] MEDS: MORPHINE SULFATE 2 MG/ML SYR IVP PRN ×6 (00:42→21:25)
[2021-04-10 04:00] VITALS: BP 141/43
--- NOTE | 2021-04-10 05:30 | NUR ---
PT C/O OF 04/08 PAIN GIVEN MORPHINE IVP. PT ASSISTED TO TOILET AND BACK.
[2021-04-10] MEDS: metroNIDAZOLE 250 MG TAB PO SCH ×3 (05:36→21:14)
--- NOTE | 2021-04-10 06:00 | NUR ---
PT GIVEN FLAGYL PO PER ORDER.
--- NOTE | 2021-04-10 07:39 | NUR ---
PT RECEIVED FROM ELECTRONICS COMMODITY MANAGER RN. PT RESTING IN BED ON LEFT SIDE. EASY TO AROUSE. NO S/SX OF DISTRESS AT THIS TIME
[2021-04-10 08:00] VITALS: BP 149/41
--- NOTE | 2021-04-10 08:23 | NUR ---
PT RESTING IN BED TALKING ON PHONE WITH FAMILY NO S/SX OF DISTRESS AT THIS TIME. ALL SAFETY MEASURES ARE IN PLACE.
[2021-04-10] MEDS ORDERED: NITROGLYCERIN 0.4 MG TAB SL PRN (08:40)
[2021-04-10] MEDS ORDERED: MECLIZINE 25 MG TAB PO PRN (08:40)
--- NOTE | 2021-04-10 08:44 | NUR ---
PT ASSESSED. PT IS ABLE TO STAND AND WALK. PT DENIES SOB, FEVER COUGH. NO SWELLING. CURRENTLY EXPERIENCING DEEP SHARP ABDOMINAL PAIN . PT STATES SHE HAS HX OF GASTRITIS. PRN MEDICATION DUE IN ONE HOUR. BREAKTHROUGH MEDICATION OFFERED. PT DENIED PILL BECAUSE SHE STATED PILLS DO NOT WORK FOR HER. PT EDUCATED AND VERBALIZED UNDERSTANDING . ALL SAFETY MEASURES ARE IN PLACE. ICE PACKS PROVIDED. AND PATIENT GUIDED THROUGH BREATHING EXERCISES.
[2021-04-10] MEDS ORDERED: POTASSIUM CHLORIDE 10 MEQ TABER PO PRN (08:45)
[2021-04-10] MEDS ORDERED: MAG SULF 2000 MG/WATER PREMIX 50 ML IV PRN (08:45)
[2021-04-10] MEDS ORDERED: LORazepam 2 MG/ML VIAL IM/IVP PRN (08:45)
[2021-04-10] MEDS ORDERED: ONDANSETRON 4 MG/2 ML VIAL IM/IVP PRN (08:45)
[2021-04-10] MEDS ORDERED: INSULIN LISPRO SLIDING SCALE 100 UNITS/ML VIAL SUBQ PRN (08:45)
[2021-04-10] MEDS ORDERED: DEXTROSE 50% 50 ML SYR IVP PRN (08:45)
[2021-04-10] MEDS ORDERED: ACETAMINOPHEN 325 MG TAB PO PRN (08:45)
[2021-04-10] MEDS ORDERED: DOCUSATE SODIUM 100 MG GELCAP PO PRN (08:45)
[2021-04-10] MEDS ORDERED: ZOLPIDEM 5 MG TAB PO PRN (08:45)
[2021-04-10] MEDS: PREGABALIN 50 MG CAP PO SCH ×3 (09:00→17:00)
[2021-04-10] MEDS ORDERED: hydrALAZINE 10 MG TAB PO SCH (09:00)
[2021-04-10] MEDS ORDERED: NON-FORMULARY ITEM (Omeprazole* (Prilosec*) 40 MG) PO SCH (09:00)
[2021-04-10] MEDS ORDERED: carvediloL 6.25 MG TAB PO SCH (09:00)
[2021-04-10] MEDS ORDERED: LOSARTAN 50 MG TAB PO SCH (09:00)
--- NOTE | 2021-04-10 09:02 | NUR ---
PATIENT HAS BEEN SCREENED AND CATEGORIZED HIGH NUTRITION RISK. PATIENT WILL BE SEEN WITHIN 1-2 DAYS OF ADMISSION. 04/10/21-04/11/[address]
[2021-04-10] MEDS: NACL 0.9% 1,000 ML IV SCH ×2 (09:09→19:06)
[2021-04-10] MEDS: FUROSEMIDE 40 MG TAB PO SCH ×2 (09:10→17:00)
[2021-04-10] MEDS: CALCIUM CARBONATE 500 MG TAB PO SCH (09:11)
[2021-04-10] MEDS: DULoxetine 30 MG CAPDR PO SCH ×2 (09:11→21:15)
[2021-04-10] MEDS: ASPIRIN 81 MG TAB.CHEW PO SCH (09:11)
[2021-04-10] MEDS: PANTOPRAZOLE 40 MG TABEC PO SCH (09:11)
[2021-04-10] MEDS: carvediloL 6.25 MG TAB PO SCH (09:13)
--- NOTE | 2021-04-10 09:40 | NUR ---
PT COMPLAINS OF 7/10 PAIN IN STOMACH. PT GUIDED THROUGH BREATHING EXERCISES, REPOSITIONED AND DISTRACTED. INTERVENTIONS INEFFECTIVE. PRN MEDICATIONS GIVEN PER MD ORDER. PT EDUCATED AND VERBALIZED UNDERSTANDING. ALL SAFETY MEASURES ARE IN PLACE.
--- NOTE | 2021-04-10 10:00 | NUR ---
PT AMBULATED TO RESTROOM WITH STAND BY ASSISTANCE. PT TOLERATED WELL. DENIES DIZZINESS, SOB , OR N/V. PT BACK IN BED. NO S/SX OF DISTRESS. ALL SAFETY MEASURES IN PLACE. PT EDUCATED TO CALL FOR ASSISTANCE AND WEAR NON SLIP SOCKS
[2021-04-10 10:26] LABS: PROTHROMBIN TIME 9.3 secs (10.8-13.4)
--- NOTE | 2021-04-10 10:40 | NUR ---
MD MACIAS AT BEDSIDE. MD EXPLAINED CONTRAST RISK AND REASON FOR ADMINISTRATION, PT VERBALIZED UNDERSTANDING AND SIGNED CONSENT AFTER MD. FUNCTIONAL SUPPORT ANALYST NAME PATTY #[id number]
--- NOTE | 2021-04-10 11:12 | NUR ---
PT LEFT UNIT VIA WHEEL CHAIR FOR PROCEDURE. PT IN STABLE CONDITION
[2021-04-10] MEDS: BLOOD GLUCOSE MONITORING 1 DEV DEV FS SCH ×3 (11:43→21:24)
[2021-04-10 12:00] VITALS: BP 136/39
--- NOTE | 2021-04-10 12:29 | NUR ---
MD SALVADOR AT BEDSIDE. PT EDUCATED ON PROCEDURE AND VERBALIZED UNDERSTANDING.
[2021-04-10 13:06] LABS: BASOPHILS # (AUTO) 0.1 K/uL (0.00-0.22); BASOPHILS % (AUTO) 0.9 % (0.0-2.0); EOSINOPHILS # (AUTO) 0.1 K/uL (0-0.4); EOSINOPHILS % (AUTO) 1.5 % (0.0-4.0); HEMOGLOBIN 9.9 g/dL (12.0-16.0); LYMPHOCYTES # (AUTO) 1.2 K/uL (2.5-16.5); LYMPHOCYTES % (AUTO) 12.7 % (20.5-51.1); MEAN CORPUSCULAR HEMOGLOBIN 30 pg (27-31); MEAN CORPUSCULAR HGB CONC 33 g/dL (33-37); MEAN CORPUSCULAR VOLUME 91.3 fL (80-94); MONOCYTES # (AUTO) 0.7 K/uL (0.8-1.0); MONOCYTES % (AUTO) 6.8 % (1.7-9.3); NEUTROPHILS # (AUTO) 7.5 K/uL (1.8-7.7); NEUTROPHILS % (AUTO) 78.1 % (42.2-75.2); PLATELET COUNT (AUTO) 381 K/uL (140-450); RED BLOOD CELL COUNT(AUTO) 3.28 MIL/uL (4.20-5.40); RED CELL DISTRIBUTION WIDTH 14.7 % (11.6-13.7); WHITE BLOOD COUNT (AUTO) 9.6 K/uL (4.8-10.8)
[2021-04-10 13:15] LABS: ANION GAP 10.5 (8-16); CARBON DIOXIDE 31.1 mmol/L (21-32); CHLORIDE 101 mmol/L (98-107); CREATININE 0.8 mg/dL (0.6-1.3); GLUCOSE 151 mg/dL (74-106); POTASSIUM 3.6 mmol/L (3.5-5.1); SODIUM SERUM 139 mmol/L (136-145); UREA NITROGEN, BLOOD 12 mg/dL (7-18)
--- NOTE | 2021-04-10 13:25 | NUR ---
PT DANGLING EATING FOOD. PT TOLERATED WELL PT COMPLAINS OF 9/10 PAIN IN ABDOMEN. SHARP . PRN MEDICATION GIVEN PER MD ORDERS. PT EDUCATED AND VERBALIZED UNDERSTANDING . NO S/SX OF DISTRESS AT THIS TIME. ALL SAFETY MEASURES ARE IN PLACE. PT REEDUCATED TO CALL FOR ASSONANCE WHEN OUT OF BED
[2021-04-10 13:35] LABS: PHOSPHORUS 3.3 mg/dL (2.5-4.9); THYROID STIMULATING HORMONE 0.92 uIU/mL (0.34-3.74)
--- NOTE | 2021-04-10 14:53 | NUR ---
04/10/21 RD INITIAL ASSESSMENT COMPLETED PLEASE REFER TO NUTRITION ASSESSMENT UNDER CARE ACTIVITY FOR ESTIMATED NUTRITIONAL NEEDS. 1. CONTINUE [facility] DIET TOLERATED 2. RD TO FOLLOW-UP 2-3 DAYS, HIGH RISK [address]
--- NOTE | 2021-04-10 15:40 | NUR ---
pt resting in bed . no s/sx of distress
[2021-04-10 16:00] VITALS: BP 147/37
--- NOTE | 2021-04-10 17:20 | NUR ---
MEDICATIONS GIVEN PER MD ORDER. PT EDUCATED. PT REFUSED LASIX SHE STATES IT MAKES HER PEE A LOT AT NIGHT. PT EDUCATED. PT REFUSED LYRICA STATES SHE STATES IT DOES NOT MAKE HER FEEL GOOD. PT EDUCATED AND VERBALIZED UNDERSTANDING . FAMILY AT BEDSIDE ALL PATIENT SAFETY MEASURES ARE IN PLACE. PT REFUSED PORCELAIN TURNER.
[2021-04-10] MEDS ORDERED: ALUMINUM HYD/MAG/SIMETHICONE 30 ML UDC PO SCH ×2 (17:45→17:55)
[2021-04-10] MEDS ORDERED: DICYCLOMINE HCL LIQUID 10 MG/5 ML UDC PO SCH ×2 (17:45→17:55)
--- NOTE | 2021-04-10 19:03 | NUR ---
PT RESTING IN BED. PT AMBULATED TO RESTROOM TOLERATED WELL . WILL ENDORSE TO CHUCKING LATHE OPERATOR RN FOR CONTINUITY OF CARE.
--- NOTE | 2021-04-10 19:30 | NUR ---
RECEIVED REPORT FROM KARLEY ADDISON DAYSHIFT NURSE AT BEDSIDE FOR CONTINUITY OF CARE, PT IN STABLE CONDITION.
[2021-04-10 20:00] VITALS: BP 148/31
--- NOTE | 2021-04-10 20:00 | NUR ---
PT SITTING UP IN BED HOB UP 45%. SHE HAS A RAC 20 GUAGE RUNNING NORMAL SALINE AT 100 MLS/HR. SHE IS AOX4 ON ROOM AIR AND MOSTLY UPPER SORBIAN SPEAKING. FAMILY AT BEDSIDE. FINGERSTICK IS 181. V/S FOLLOWS: T 98.0 P 65 R 18 B/P 148/31 02 92% ON ROOM AIR. N/S RUNNING ORDERED. ALL ORDERED PRECAUTIONS IN PLACE.
--- NOTE | 2021-04-10 21:35 | NUR ---
PT GIVEN 2 UNITS OF HUMALOG INSULIN PER S/S. PT ALSO GIVEN FLAGYL 500MG AND CYMBALTA PO ORDERED. EDUCATION REGARDING MEDICATION AND IT S PURPOSES PROVIDED AT BEDSIDE. PT ALSO GIVEN SQ HEPARIN FOR DVT PREVENTION. PT VERBALIZED UNDERSTANDING. PT WAS GIVEN ORDERED "GI COCKTAIL" PER REQUEST. PT VERBALIZED UNDERSTANDING OF PURPOSES OF MEDICATION. SHE ALSO REQUESTED MORPHINE FOR PAIN REIELF OF STOMACH AND HEADACHE. PT ALSO REQUESTED ZOFRAN FOR C/O OF NAUSEA SHE WAS GIVEN IVP MORPHINE AND ZOFRAN REQUESTED. WILL MONITOR PT FOR RELIEF OF SYMPTOMS. PT REMINDED THAT URINE NEEDS TO BE COLLECTED AND THAT SHE WILL BE NPO AFTER MIDNIGHT, PT VERBALIZED UNDERSTANDING. ALL FALLS PRECAUTIONS IN PLACE.
[2021-04-11] VITALS: BP 156/51
--- NOTE | 2021-04-11 00:15 | NUR ---
PT AMBULATED TO TOILET AND BACK WITH A STEADY GAIT. PT WAS ASSISTED TO REPOSITION IN BED. IV FLUIDS OF NORMAL SALINE CONTINUES AT 100 MLS/HR. V/S FOLLOWS: T 98.1 P 67 R 17 B/P 156/51 02 94% ON ROOM AIR. URINE COLLECTED FOR URINALYSIS. PT HAS NO FURTHER C/O VOICED; ALL ORDERED PRECAUTIONS IN PLACE.
[2021-04-11 01:01] LABS: APPEARANCE,URINE CLEAR (CLEAR); BILIRUBIN,URINE NEGATIVE (NEGATIVE); BLOOD, URINE NEGATIVE (NEGATIVE); COLOR,URINE DARK YELLOW (YELLOW); LEUKOCYTE ESTERASE ,URINE NEGATIVE (NEGATIVE); NITRITE, URINE NEGATIVE (NEGATIVE); PH,URINE 5.5 (5.0-9.0); UGLUCOSE NEGATIVE (NEGATIVE)
[2021-04-11 04:00] VITALS: BP 149/52
[2021-04-11] MEDS: NACL 0.9% 1,000 ML IV SCH ×2 (04:45→14:45)
[2021-04-11] MEDS: metroNIDAZOLE 250 MG TAB PO SCH ×2 (05:01→13:18)
[2021-04-11] MEDS: MORPHINE SULFATE 2 MG/ML SYR IVP PRN ×3 (05:07→13:20)
[2021-04-11] MEDS: BLOOD GLUCOSE MONITORING 1 DEV DEV FS SCH ×2 (05:10→11:30)
--- NOTE | 2021-04-11 05:10 | NUR ---
PT C/O OF SEVERE HEADACHE, SHE WAS GIVEN IVP MORPHINE FINGERSTICK IS 136, NO HUMALOG COVERAGE NEEDED. PT ALSO GIVEN ORDERED FLAGYL PO. PT WAS ASSISTED TO REPOSITION IN THE BED, WILL MONITOR FOR PAIN RELIEF. ALL ORDERED PRECAUTIONS IN PLACE.
[2021-04-11 06:11] LABS: BASOPHILS # (AUTO) 0.1 K/uL (0.00-0.22); BASOPHILS % (AUTO) 0.7 % (0.0-2.0); EOSINOPHILS # (AUTO) 0.2 K/uL (0-0.4); EOSINOPHILS % (AUTO) 2.2 % (0.0-4.0); HEMATOCRIT 29.2 % (36-48); HEMOGLOBIN 9.6 g/dL (12.0-16.0); LYMPHOCYTES # (AUTO) 1.3 K/uL (2.5-16.5); MEAN CORPUSCULAR HEMOGLOBIN 30 pg (27-31); MEAN CORPUSCULAR HGB CONC 33 g/dL (33-37); MONOCYTES # (AUTO) 0.7 K/uL (0.8-1.0); MONOCYTES % (AUTO) 8.6 % (1.7-9.3); NEUTROPHILS # (AUTO) 5.8 K/uL (1.8-7.7); NEUTROPHILS % (AUTO) 72.5 % (42.2-75.2); PLATELET COUNT (AUTO) 357 K/uL (140-450); RED BLOOD CELL COUNT(AUTO) 3.18 MIL/uL (4.20-5.40); RED CELL DISTRIBUTION WIDTH 14.6 % (11.6-13.7)
[2021-04-11 06:18] LABS: ANION GAP 5.6 (8-16); CARBON DIOXIDE 32.2 mmol/L (21-32); CHLORIDE 104 mmol/L (98-107); CREATININE 0.7 mg/dL (0.6-1.3); GLUCOSE 151 mg/dL (74-106); POTASSIUM 3.8 mmol/L (3.5-5.1); SODIUM SERUM 138 mmol/L (136-145); UREA NITROGEN, BLOOD 9 mg/dL (7-18)
--- NOTE | 2021-04-11 07:45 | NUR ---
RECEIVED BEDSIDE REPORT FROM VP STRATEGIC PARTNERSHIPS NURSE. PATIENT IN BED SLEEPING, ANSWERS TO NAME. SUPINE, HOB 30 DEGREES, BREATHING EVEN AND UNLABORED, NO SIGNS OF ACUTE DISTRESS NOTED ON RA. R AC 20G, INFUSING NS @ 100 ML/HR. LIQUOR DEPARTMENT MANAGER IN PLACE, SAFETY MEASURES IN PLACE.
[2021-04-11 08:07] LABS: T4 (THYROXINE) 10.9 ug/dL (4.5-12.0)
[2021-04-11] MEDS: FUROSEMIDE 40 MG TAB PO SCH (09:00)
[2021-04-11] MEDS: CALCIUM CARBONATE 500 MG TAB PO SCH (09:00)
[2021-04-11] MEDS: ASPIRIN 81 MG TAB.CHEW PO SCH (09:00)
[2021-04-11] MEDS: DULoxetine 30 MG CAPDR PO SCH (09:00)
[2021-04-11] MEDS: PREGABALIN 50 MG CAP PO SCH ×2 (09:00→13:20)
[2021-04-11] MEDS ORDERED: metFORMIN 500 MG TAB PO SCH (09:00)
--- NOTE | 2021-04-11 09:17 | NUR ---
PRN MORPHINE ADMINISTERED FOR ABD PAIN 10, SEE PAIN ASSESSMENT NOTES. MED EDUCATION PROVIDED, PATIENT VERBALIZES UNDERSTANDING. PATIENT TAKEN TO OR ROOM FOR EGD PROCEDURE AT THIS TIME. PATIENT STABLE WITH NO SIGNS OR SYMPTOMS OF ACUTE DISTRESS. ALL PO MORNING MEDS HELD FOR PROCEDURE. WILL FOLLOW UP AFTER PROCEDURE.
[2021-04-11] MEDS ORDERED: fentaNYL citrate 0.05 MG/ML VIAL ONE (09:30)
[2021-04-11] MEDS ORDERED: MIDAZOLAM 5 MG/5 ML VIAL ONE (09:30)
--- NOTE | 2021-04-11 09:59 | NUR ---
PATIENT BACK IN ROOM S/P OR EGD PROCEDURE. BREATHING EVEN AND UNLABORED, NO SIGNS OF ACUTE DISTRESS NOTED. SAFETY MEASURES IN PLACE.
[2021-04-11] MEDS ORDERED: MIDAZOLAM 2 MG/2 ML VIAL IVP ONE (11:10)
[2021-04-11] MEDS ORDERED: fentaNYL citrate 0.05 MG/ML VIAL IVP ONE (11:10)
[2021-04-11] MEDS ORDERED: OMEP40EC24 PO (11:28)
[2021-04-11] MEDS ORDERED: SUCR1SUS7 PO (11:28)
[2021-04-11] MEDS: carvediloL 6.25 MG TAB PO SCH (12:36)
[2021-04-11] MEDS: PANTOPRAZOLE 40 MG TABEC PO SCH (12:37)
--- NOTE | 2021-04-11 12:39 | NUR ---
PROTONIX, CARVEDILOL, FUROSEMIDE ADMINISTERED PER MD ORDER AT 1230. HELD AT 9AM DUE TO PATIENT NPO FOR OR PROCEDURE. MED EDUCATION PROVIDED, PATIENT VERBALIZES UNDERSTANDING. MEDICATIONS TOLERATED WELL WITH SIPS OF WATER. PATIENT SITTING UP IN BED, CONSUMING LUNCH AT THIS TIME. NO SIGNS OF ACUTE DISTRESS NOTED.
[2021-04-11] MEDS ORDERED: SUCRALFATE 1 GM TAB PO SCH (13:00)
--- NOTE | 2021-04-11 14:56 | NUR ---
PATIENT SITTING IN BED, CONVERSATING WITH FAMILY (SON) AT BEDSIDE. NO SIGNS OF ACUTE DISTRESS NOTED.
--- NOTE | 2021-04-11 15:40 | NUR ---
PATIENT DISCHARGED AT THIS TIME. DISCHARGE EDUCATION PROVIDED, PATIENT AND FAMILY VERBALIZED UNDERSTANDING. IV REMOVED, CATHETER INTACT. WHEELED TO PRIVATE VEHICLE. VITALS STABLE: BP 150/52, RR 18, PULSE 69, SPO2 96% RA, TEMP 99.0 DEGREES FAHRENHEIT. BREATHING EVEN AND UNLABORED, NO SIGNS OF ACUTE DISTRESS NOTED.
[2021-04-11] MEDS ORDERED: CHOLESTYRAMINE 4 GM/9 GM PKT PO SCH (21:00)
== END 2021-04-11 16:00 | disposition home health service (06) | DRG 384 ==
LOC: MED 11:13 → MTU 14:21
PROC: 0DB68ZX Excision of Stomach, Via Natural or Artificial Opening Endoscopic, Diagnostic (ICD-10-PCS; principal; 2021-04-11 09:30)
DX: K25.9 Gastric ulcer, unspecified as acute or chronic, without hemorrhage or perforation (principal); E44.0 Moderate protein-calorie malnutrition; Z68.43 Body mass index [BMI] 50.0-59.9, adult; K29.70 Gastritis, unspecified, without bleeding; K92.9 Disease of digestive system, unspecified; E86.0 Dehydration; D64.9 Anemia, unspecified; E11.40 Type 2 diabetes mellitus with diabetic neuropathy, unspecified; I11.0 Hypertensive heart disease with heart failure; I50.9 Heart failure, unspecified; K31.9 Disease of stomach and duodenum, unspecified; M19.90 Unspecified osteoarthritis, unspecified site; Z96.651 Presence of right artificial knee joint; Z20.822 Contact with and (suspected) exposure to COVID-19; I25.10 Atherosclerotic heart disease of native coronary artery without angina pectoris; F32.9 Major depressive disorder, single episode, unspecified; K21.9 Gastro-esophageal reflux disease without esophagitis; G89.29 Other chronic pain; Z96.659 Presence of unspecified artificial knee joint; J45.909 Unspecified asthma, uncomplicated; D63.8 Anemia in other chronic diseases classified elsewhere; E66.01 Morbid (severe) obesity due to excess calories; Z85.72 Personal history of non-Hodgkin lymphomas; Z79.82 Long term (current) use of aspirin; Z79.899 Other long term (current) drug therapy; Z90.49 Acquired absence of other specified parts of digestive tract; Z95.5 Presence of coronary angioplasty implant and graft; Z90.710 Acquired absence of both cervix and uterus
CPT/HCPCS: 36415; 71045; 80048; 80053; 81003; 82140; 82948; 83036; 83690; 83735; 83880; 84100; 84436; 84443; 85025; 85610; 85730; 86677; 87040; 87081; 87086; 88305; 88312; 88313; 88342; 96361; 96374; 97116; 97163-GP; 97530; 99285; J0696; J1644; J1815; J2250; J2270; J2405; J3010; J7060; Q9967

== ENCOUNTER 2021-06-02 12:07 | Inpatient (IN) | payer OTHER, SELFPAY ==
[~2021-06-02] VITALS: Ht 147.3 cm; Wt 109.8 kg
[~2021-06-02 12:07] MED LIST changes: +APR10 PO; -ATI.5 PO; +CARV6.25 PO; -FERR-20 PO; -HYDR-1098 PO; -HYDR100T79 PO; +LOSA100T1 PO; +METH150T PO; -METO-485 PO; -METO25TA PO; -OMEP-278 PO; +OMEP40EC24 PO; -ONDA4TAB12 PO; +PREG100C PO; -PREG200C PO; +TORS100T14 PO
[2021-06-02 12:34] VITALS: BP 123/56
--- NOTE | 2021-06-02 12:38 | NUR ---
PT TO AWAIT IN LOBBY
--- NOTE | 2021-06-02 12:55 | NUR ---
Patient wheelchair assisted to bed 5.
[2021-06-02] MEDS ORDERED: ASPIRIN 325 MG TAB PO ONE (13:35)
--- NOTE | 2021-06-02 13:44 | NUR ---
80/F presents to ED with c/o chest pain since last night. Patient states she began having unprovoked 8/10 pressure chest pain radiating to her back since last night. Reports taking pain medication 3 hours prior to arrival to ED with no relief. Patient states pain is radiating to her back, states worsens with deep breath, denies sob, fever, chills.
[2021-06-02 14:00] LABS: BASOPHILS # (AUTO) 0.2 K/uL (0.00-0.22); BASOPHILS % (AUTO) 1.2 % (0.0-2.0); EOSINOPHILS # (AUTO) 0.3 K/uL (0-0.4); EOSINOPHILS % (AUTO) 2.3 % (0.0-4.0); HEMATOCRIT 27.5 % (36-48); HEMOGLOBIN 8.5 g/dL (12.0-16.0); LYMPHOCYTES # (AUTO) 2.1 K/uL (2.5-16.5); LYMPHOCYTES % (AUTO) 16.7 % (20.5-51.1); MEAN CORPUSCULAR HEMOGLOBIN 25 pg (27-31); MEAN CORPUSCULAR HGB CONC 31 g/dL (33-37); MEAN CORPUSCULAR VOLUME 79.7 fL (80-94); MONOCYTES # (AUTO) 1.3 K/uL (0.8-1.0); MONOCYTES % (AUTO) 10.3 % (1.7-9.3); NEUTROPHILS # (AUTO) 8.7 K/uL (1.8-7.7); NEUTROPHILS % (AUTO) 69.5 % (42.2-75.2); PLATELET COUNT (AUTO) 419 K/uL (140-450); RED BLOOD CELL COUNT(AUTO) 3.46 MIL/uL (4.20-5.40); RED CELL DISTRIBUTION WIDTH 18.8 % (11.6-13.7); WHITE BLOOD COUNT (AUTO) 12.5 K/uL (4.8-10.8)
[2021-06-02] MEDS ORDERED: FAMOTIDINE 20 MG TAB PO ONE (14:15)
[2021-06-02] MEDS ORDERED: DICYCLOMINE 10 MG CAP PO ONE (14:15)
[2021-06-02 14:23] LABS: ALBUMIN 2.7 g/dL (3.4-5.0); ANION GAP 3.3 (8-16); ASPARTATE AMINOTRANSFERASE 12 U/L (15-37); CARBON DIOXIDE 37.8 mmol/L (21-32); CHLORIDE 100 mmol/L (98-107); CREATININE 1.2 mg/dL (0.6-1.3); GLUCOSE 126 mg/dL (74-106); LIPASE 47 U/L (73-393); POTASSIUM 4.1 mmol/L (3.5-5.1); SODIUM SERUM 137 mmol/L (136-145); TOTAL BILIRUBIN 0.3 mg/dL (0.0-1.0); UREA NITROGEN, BLOOD 19 mg/dL (7-18)
--- NOTE | 2021-06-02 15:00 | NUR ---
Patient appears to be resting with eyes closed, respirations even and unlabored. On bedside glove turner. VSS.
[2021-06-02] MEDS ORDERED: MORPHINE SULFATE 4 MG/ML SYR IM ONE (15:30)
[2021-06-02] MEDS ORDERED: ONDANSETRON 4 MG ODT PO ONE (15:30)
[2021-06-02] MEDS ORDERED: PANTOPRAZOLE 40 MG INJ VIAL IVP ONE (16:05)
[2021-06-02] MEDS ORDERED: POTASSIUM CHLORIDE 10 MEQ TABER PO PRN (16:40)
[2021-06-02] MEDS ORDERED: ONDANSETRON 4 MG/2 ML VIAL IM/IVP PRN (16:40)
[2021-06-02] MEDS ORDERED: ACETAMINOPHEN 325 MG TAB PO PRN (16:40)
[2021-06-02] MEDS ORDERED: MAGNESIUM OXIDE 400 MG TAB PO PRN (16:40)
[2021-06-02] MEDS ORDERED: SODIUM PHOS / POTASSIUM PHOS 1 PKT PDR PO PRN (16:40)
[2021-06-02] MEDS ORDERED: DOCUSATE SODIUM 100 MG GELCAP PO PRN (16:40)
[2021-06-02] MEDS ORDERED: DEXTROSE 50% 50 ML SYR IVP PRN (16:40)
[2021-06-02] MEDS ORDERED: MORPHINE SULFATE 2 MG/ML SYR IVP PRN (16:40)
[2021-06-02] MEDS ORDERED: MECLIZINE 25 MG TAB PO PRN (16:45)
[2021-06-02] MEDS ORDERED: NITROGLYCERIN 0.4 MG TAB SL PRN (16:45)
[2021-06-02] MEDS ORDERED: PANTOPRAZOLE 40 MG INJ VIAL ONE (17:11)
[2021-06-02] MEDS ORDERED: PREGABALIN 25 MG CAP ONE (17:17)
[2021-06-02 17:24] LABS: PHOSPHORUS 4.2 mg/dL (2.5-4.9)
[2021-06-02] MEDS: NACL 0.9% 1,000 ML IV SCH (17:24)
[2021-06-02] MEDS: PREGABALIN 50 MG CAP PO SCH (17:24)
--- NOTE | 2021-06-02 17:40 | NUR ---
Patient states unable to provide urine at this time.
--- NOTE | 2021-06-02 19:23 | NUR ---
Pt report given to Lexis. Transfer of care at this time.
--- NOTE | 2021-06-02 19:27 | NUR ---
RECEIVED REPORT FROM AZAEL OH. TRANSFER OF CARE AT THIS TIME.
--- NOTE | 2021-06-02 23:00 | NUR ---
AMBULATED TO THE RESTROOM WITH ASSISTANCE AND COLLECTED URINE SAMPLE.
[2021-06-03 00:20] LABS: APPEARANCE,URINE CLEAR (CLEAR); BILIRUBIN,URINE NEGATIVE (NEGATIVE); BLOOD, URINE NEGATIVE (NEGATIVE); COLOR,URINE DARK YELLOW (YELLOW); LEUKOCYTE ESTERASE ,URINE TRACE (NEGATIVE); NITRITE, URINE NEGATIVE (NEGATIVE); PH,URINE 5.5 (5.0-9.0); UGLUCOSE NEGATIVE (NEGATIVE)
--- NOTE | 2021-06-03 00:20 | NUR ---
URINE SAMPLE SENT TO LAB. HANDED TO SLIM
[2021-06-03] MEDS: BLOOD GLUCOSE MONITORING 1 DEV DEV FS SCH ×5 (00:24→21:04)
[2021-06-03] MEDS: DULoxetine 30 MG CAPDR PO SCH ×3 (00:25→21:05)
[2021-06-03] MEDS: SUCRALFATE 1 GM TAB PO SCH ×3 (00:25→21:05)
[2021-06-03] MEDS: FUROSEMIDE 40 MG TAB PO SCH ×2 (00:26→09:15)
[2021-06-03] MEDS: HYDROcodone/APAP 5/325 MG 1 TAB TAB PO PRN (00:39)
[2021-06-03 00:43] LABS: RBC,URINE 0-5 /HPF (0-5)
--- NOTE | 2021-06-03 02:29 | NUR ---
Patient appears to be resting comfortably in bed. Vital Signs within normal limits. Respirations even and unlabored.
--- NOTE | 2021-06-03 04:46 | NUR ---
AMBULATED TO THE RESTROOM AND BACK TO BED. VOIDED WITHOUT DIFFICULTIES.
--- NOTE | 2021-06-03 07:19 | NUR ---
GIVEN REPORT TO AZAEL LAND. TRANSFER OF CARE AT THIS TIME.
--- NOTE | 2021-06-03 07:50 | NUR ---
RECEIVED REPORT FROM ER NURSE, EMERY, FOR CONTINUITY OF CARE. WILL WAIT FOR PT TO ARRIVE TO UNIT.
[2021-06-03 08:11] LABS: ANION GAP 5.9 (8-16); CARBON DIOXIDE 35.1 mmol/L (21-32); CHLORIDE 100 mmol/L (98-107); CREATININE 1.2 mg/dL (0.6-1.3); GLUCOSE 130 mg/dL (74-106); SODIUM SERUM 137 mmol/L (136-145); UREA NITROGEN, BLOOD 19 mg/dL (7-18)
--- NOTE | 2021-06-03 08:16 | NUR ---
Patient will be admitted to care of DR. ALONZO. Admited to TELE. Will go to room 119A. Belongings list completed. Report to AZAEL FOSTER.
[2021-06-03 08:20] VITALS: BP 147/99
--- NOTE | 2021-06-03 08:20 | NUR ---
PT ARRIVED TO UNIT VIA GURNEY. PT IS AWAKE AND ALERT. NO DISTRESS NOTED ON 1L O2 NC. BREATHING IS UNLABORED. SKIN IS WARM, DRY, AND INTACT. PT DENIES PAIN AT THIS TIME. PT IS AMBULATORY INDEPENDENTLY. PT IS STABLE. WILL CONTINUE TO MONITOR.
[2021-06-03] MEDS ORDERED: LOSARTAN 50 MG TAB PO SCH (09:00)
[2021-06-03] MEDS ORDERED: carvediloL 6.25 MG TAB PO SCH (09:00)
[2021-06-03] MEDS: CALCIUM CARBONATE 500 MG TAB PO SCH (09:14)
[2021-06-03] MEDS: hydrALAZINE 25 MG TAB PO SCH ×2 (09:16→13:00)
[2021-06-03] MEDS: PREGABALIN 50 MG CAP PO SCH ×3 (09:16→17:49)
[2021-06-03] MEDS: PANTOPRAZOLE 40 MG INJ VIAL IVP SCH (09:17)
[2021-06-03 09:20] LABS: BASOPHILS # (AUTO) 0.1 K/uL (0.00-0.22); BASOPHILS % (AUTO) 0.5 % (0.0-2.0); EOSINOPHILS # (AUTO) 0.3 K/uL (0-0.4); EOSINOPHILS % (AUTO) 3.4 % (0.0-4.0); HEMATOCRIT 28.1 % (36-48); HEMOGLOBIN 8.8 g/dL (12.0-16.0); LYMPHOCYTES # (AUTO) 2.8 K/uL (2.5-16.5); LYMPHOCYTES % (AUTO) 27.6 % (20.5-51.1); MEAN CORPUSCULAR HEMOGLOBIN 25 pg (27-31); MEAN CORPUSCULAR HGB CONC 32 g/dL (33-37); MONOCYTES # (AUTO) 0.8 K/uL (0.8-1.0); MONOCYTES % (AUTO) 8.1 % (1.7-9.3); NEUTROPHILS # (AUTO) 6.2 K/uL (1.8-7.7); NEUTROPHILS % (AUTO) 60.4 % (42.2-75.2); PLATELET COUNT (AUTO) 423 K/uL (140-450); RED BLOOD CELL COUNT(AUTO) 3.55 MIL/uL (4.20-5.40); RED CELL DISTRIBUTION WIDTH 18.7 % (11.6-13.7); WHITE BLOOD COUNT (AUTO) 10.2 K/uL (4.8-10.8)
[2021-06-03] MEDS: NACL 0.9% 1,000 ML IV SCH (10:32)
--- NOTE | 2021-06-03 11:01 | NUR ---
PT STATED SHE WAS FEELING NAUSEOUS AND WAS GIVEN ZOFRAN FOR NAUSEA. MEDICATION EDUCATION WAS PROVIDED AND PT VERBALIZED UNDERSTANDING. WILL MONITOR FOR NAUSEA.
--- NOTE | 2021-06-03 11:15 | NUR ---
AFTER GIVING CARVEDILOL 6.25 MG SCHEDULED, HR HAS SUSTAINED IN THE 120'S TO 130'S. NOTIFIED DR. DRAKE ABOUT ELEVATED HR. WILL WAIT FOR RESPONSE.
--- NOTE | 2021-06-03 11:20 | NUR ---
DR. DRAKE RESPONDED WITH AN ORDER FOR CARDIOLOGY CONSULT, ULTRASOUND VENOUS BILATERAL LOWER EXTREMITIES, AND IV 5MG LOPRESSOR ONCE.
[2021-06-03] MEDS ORDERED: METOPROLOL 5 MG/5 ML VIAL IVP SCH ×5 (11:25→17:20)
--- NOTE | 2021-06-03 11:26 | NUR ---
BS READING WAS 128. PT DOES NOT NEED INSULIN PER SLIDING SCALE.
--- NOTE | 2021-06-03 11:49 | NUR ---
NOTIFIED DR. MCCRAY THAT THERE IS A NEW CONSULTATION FOR THIS PATIENT FOR ELEVATED HR.
[2021-06-03 12:00] VITALS: BP 99/65
--- NOTE | 2021-06-03 13:44 | NUR ---
DID NOT ADMINISTER HYDRALAZINE DUE TO LOW BP. BP WAS 99/65. WILL CONTINUE TO MONITOR.
--- NOTE | 2021-06-03 13:47 | NUR ---
INFORMED DR. DRAKE ABOUT THE DECREASED BP FOR THE PT AND ASKED IF SHE WOULD LIKE ME TO HOLD OFF ON THE LOPRESSOR ORDER. BP IS 99/65 AND HR IS 132 CURRENTLY. SHE STATED TO HOLD OFF ON THE MEDICATION FOR NOW.
--- NOTE | 2021-06-03 14:10 | NUR ---
EKG BEING DONE AT BEDSIDE. RESULTS: AFIB WITH ST DEPRESSION AND ABNORMAL T WAVE. MESSAGED THE RESULTS TO DR. DRAKE.
--- NOTE | 2021-06-03 14:17 | NUR ---
US TECH AT BEDSIDE PERFORMING US VENOUS BILATERAL LOWER EXTREMITIES.
--- NOTE | 2021-06-03 14:21 | NUR ---
DR. DRAKE AT BEDSIDE. VERBAL ORDER FOR TROPONIN. CALLED LAB AND THEY STATED THEY WOULD BE OVER SHORTLY. ALSO RECEIVED VERBAL ORDER FOR BOLUS 500 ML. WILL ADMINISTER ONCE VERIFIED.
[2021-06-03] MEDS ORDERED: NACL 0.9% 500 ML IV SCH ×2 (14:25→16:00)
--- NOTE | 2021-06-03 14:27 | NUR ---
BOLUS OF 500 ML NS STARTED. WILL MONITOR PT. WILL RETAKE BP AFTER BOLUS IS FINISHED.
--- NOTE | 2021-06-03 15:30 | NUR ---
RECHECKED BP AFTER RECEIVING 500 ML BOLUS AND IT IS 108/77. HR IS 116 AT THIS TIME. PT IS ST ON THE TELE MONITOR.
--- NOTE | 2021-06-03 15:54 | NUR ---
RECEIVED VERBAL ORDER FOR 500 BOLUS OF NS WIDE OPEN FROM SOFTWARE DEVELOPMENT ANALYST, DR. MCKEON. DR. MCKEON AT BEDSIDE SPEAKING WITH PT. BOLUS WAS STARTED ORDERED.
[2021-06-03 16:00] VITALS: BP 108/77
--- NOTE | 2021-06-03 16:53 | NUR ---
RECEIVED VERBAL ORDER FROM DR. MCKEON TO GIVE METOPROLOL 5 MG IVP FOR ELEVATED HR. WILL ADMINISTER ONCE VERIFIED.
--- NOTE | 2021-06-03 17:00 | NUR ---
DR. SALVADOR AT BEDSIDE ASSESSING PT. EXPLAINED COLONOSCOPY TO PT AND FAMILY MEMBER AT BEDSIDE. RISKS DISCUSSED AND QUESTIONS ANSWERED. CONSENT WAS SIGNED BY DOCTOR, PT, AND WITNESS.
--- NOTE | 2021-06-03 17:03 | NUR ---
VERBAL ORDER FROM DR. MCKEON TO HAVE 15 MG METOPROLOL IVP TO ADMINISTER AT 5 MG INCREMENTS WITH DOCTOR AT BEDSIDE MONITORING HR/BP.
--- NOTE | 2021-06-03 17:39 | NUR ---
METOPROLOL 5 MG IVP GIVEN TWICE WITH DR. MCKEON AT BEDSIDE AND MONITOR ON TELE MONITOR. WITH INSTRUCTIONS OF DR. MCKEON TWO DOES WERE GIVEN. THIRD DOSE WAS HELD PER DOCTORS ORDER. HR IS NOW 115 ON TELE MONITOR. DOCTOR PLACED VERBAL ORDER FOR METOPROLOL 25 MG PO ONCE NOW AND 25 MG PO METOPROLOL PO AT 2200 IF THE HR IS ABOVE 110.
[2021-06-03] MEDS ORDERED: METOPROLOL 25 MG TAB PO ONE ×2 (18:10)
--- NOTE | 2021-06-03 19:20 | NUR ---
ENDORSED PT TO INCOME TAX MANAGER NURSE FOR CONTINUITY OF CARE. PT IS STABLE AT THIS TIME. PLAN OF CARE DISCUSSED.
--- NOTE | 2021-06-03 19:25 | NUR ---
RECEIVED REPORT FROM DAY SHIFT RN. PT AAOX4, FOLLOWING COMMANDS, NIGERIAN SPEAKING. AMB IN ROOM. AFIB ON MONITOR, 110-120S, PALPABLE PULSES. LUNGS CLEAR TO AUSCULTATION. ABD SOFT ROUND, OBESE. ACTIVE BOWEL SOUNDS, CL LIQUID DIET. NO S/S OF BLOODY STOOLS @ THIS TIME. PT VOIDING, BSC WITHIN REACH. IV TO L FA NOTED, PATENT, WITH IVF RUNNING. BED LOCKED IN LOWEST POSITION. SAFETY PRECAUTIONS IN PLACE. BLEEDING PRECAUTION IN PLACE. WILL CONTINUE TO OBSERVE.
[2021-06-03 20:00] VITALS: BP 105/72
[2021-06-03] MEDS ORDERED: AMIODARONE 200 MG TAB PO SCH (20:15)
--- NOTE | 2021-06-03 20:45 | NUR ---
SPOKE WITH DR MCKEON, NEW ORDERS FOR AMIODARONE PO TO START TONIGHT, SEE ORDERS FOR NEW DETAILS.
[2021-06-03] MEDS ORDERED: METOPROLOL 25 MG TAB ONE (20:48)
--- NOTE | 2021-06-03 21:35 | NUR ---
PT REPOSITIONED FOR COMFORT, HR 100S AFIB. PT ASYMPTOMATIC DENIES CP SOB. WILL CONTINUE TO OBSERVE
[2021-06-03] MEDS ORDERED: METOPROLOL 25 MG TAB PO PRN (22:00)
--- NOTE | 2021-06-03 23:35 | NUR ---
PT HR 100-120S AFIB. PT DENIES CP/SOB. WILL CONTINUE TO OBSERVE
[2021-06-04] VITALS: BP 104/63
[2021-06-04] MEDS: NACL 0.9% 1,000 ML IV SCH ×2 (03:09→19:46)
--- NOTE | 2021-06-04 03:13 | NUR ---
PT HAS EYES CLOSED; AROUSABLE, NO S/S OF DISTRESS NOTED. WILL CONTINUE TO OBSERVE.
[2021-06-04 04:00] VITALS: BP 143/68
--- NOTE | 2021-06-04 06:00 | NUR ---
BS CHECKED 126, NO ACUTE DISTRESS NOTED.
[2021-06-04] MEDS: BLOOD GLUCOSE MONITORING 1 DEV DEV FS SCH ×4 (06:15→20:30)
--- NOTE | 2021-06-04 07:10 | NUR ---
RECEIVED REPORT FROM NIGHT NURSE, PT DIAGNOSED OF SEPSIS, HYPERGLYCEMIA. PT IS IN THE BED AND PT PULLED OUT IV. BLEEDING IS CONTROLLED. PT IS AWAKE AND ALERT. A&OX4. ON RA WITH BREATHING UNLABORED. ON TELE MONITOR. PT IS AMBULATORY TO THE RESTROOM NEEDED. SKIN IS WARM, DRY, AND INTACT. WILL PLACE IV SHORTLY. PT IS STABLE AT THIS TIME. PLAN OF CARE DISCUSSED.
[2021-06-04 07:26] LABS: BASOPHILS # (AUTO) 0.1 K/uL (0.00-0.22); BASOPHILS % (AUTO) 0.9 % (0.0-2.0); EOSINOPHILS # (AUTO) 0.2 K/uL (0-0.4); EOSINOPHILS % (AUTO) 2.3 % (0.0-4.0); HEMATOCRIT 29.5 % (36-48); HEMOGLOBIN 9.1 g/dL (12.0-16.0); LYMPHOCYTES # (AUTO) 2.3 K/uL (2.5-16.5); LYMPHOCYTES % (AUTO) 23.7 % (20.5-51.1); MEAN CORPUSCULAR HEMOGLOBIN 25 pg (27-31); MEAN CORPUSCULAR HGB CONC 31 g/dL (33-37); MEAN CORPUSCULAR VOLUME 80.5 fL (80-94); MONOCYTES # (AUTO) 0.7 K/uL (0.8-1.0); MONOCYTES % (AUTO) 7.5 % (1.7-9.3); NEUTROPHILS # (AUTO) 6.2 K/uL (1.8-7.7); NEUTROPHILS % (AUTO) 65.6 % (42.2-75.2); PLATELET COUNT (AUTO) 415 K/uL (140-450); RED BLOOD CELL COUNT(AUTO) 3.66 MIL/uL (4.20-5.40); RED CELL DISTRIBUTION WIDTH 18.8 % (11.6-13.7); WHITE BLOOD COUNT (AUTO) 9.5 K/uL (4.8-10.8)
[2021-06-04 07:37] LABS: ANION GAP 8.2 (8-16); CARBON DIOXIDE 31.8 mmol/L (21-32); CHLORIDE 106 mmol/L (98-107); CREATININE 0.8 mg/dL (0.6-1.3); GLUCOSE 122 mg/dL (74-106); SODIUM SERUM 142 mmol/L (136-145); UREA NITROGEN, BLOOD 13 mg/dL (7-18)
[2021-06-04 07:40] LABS: MAGNESIUM 2.1 mg/dL (1.8-2.4); PHOSPHORUS 3.6 mg/dL (2.5-4.9)
[2021-06-04 08:00] VITALS: BP 112/57
--- NOTE | 2021-06-04 08:03 | NUR ---
WAS NOTIFIED BY THE TAX ASSOCIATE THAT THE PT'S HR RECENTLY DROPPED TO THE 40'S. MESSAGED DR. MCKEON, TUNNEL MUCKER, TO INFORM HIM OF THIS INFORMATION. ALSO NOTIFIED HIM THAT THE CURRENT HR IS 46 AND THE BP IS 112/57. METER TESTER NURSE REPORTED THE HR IN THE 110-120'S LAST NIGHT. DR. MCKEON STATED TO D/C METOPROLOL AND ANY BETA BLOCKERS. DOCTOR STATED TO MONITOR CONSIDERING THE BP IS STABLE.
[2021-06-04] MEDS: PREGABALIN 50 MG CAP PO SCH ×3 (09:23→16:20)
[2021-06-04] MEDS: PANTOPRAZOLE 40 MG INJ VIAL IVP SCH (09:23)
[2021-06-04] MEDS: bisacodyL 5 MG TABEC PO SCH ×2 (09:23→16:20)
[2021-06-04] MEDS: CALCIUM CARBONATE 500 MG TAB PO SCH (09:24)
[2021-06-04] MEDS: SUCRALFATE 1 GM TAB PO SCH ×2 (09:24→20:30)
[2021-06-04] MEDS: DULoxetine 30 MG CAPDR PO SCH ×2 (09:24→20:30)
[2021-06-04] MEDS: AMIODARONE 200 MG TAB PO SCH ×3 (09:25→16:21)
[2021-06-04] MEDS: SUPREP BOWEL PREP KIT 354 ML SOLN.RECON PO SCH ×2 (09:26→18:07)
--- NOTE | 2021-06-04 09:56 | NUR ---
ADMINISTERED ALL PRESCRIBED MEDICATION PER MD ORDER. HR 67 PT IS STABLE. WILL CONTINUE TO MONITOR PT FOR BRADYCARDIA AND OTHER SIDE EFFECTS OF MEDICATIONS.
[2021-06-04] MEDS: HYDROcodone/APAP 5/325 MG 1 TAB TAB PO PRN (10:05)
--- NOTE | 2021-06-04 10:10 | NUR ---
PT REPORTED PAIN 6/10 MEDICATED WITH NORCO. BP WAS 112/57 HR 67. WILL REASSESS PT IN AN HOUR.
[2021-06-04 12:00] VITALS: BP 137/54
[2021-06-04] MEDS: INSULIN LISPRO SLIDING SCALE 100 UNITS/ML VIAL SUBQ PRN ×2 (12:32→20:32)
--- NOTE | 2021-06-04 12:32 | NUR ---
BLOOD SUGAR 182 MG/DL , 2 UNITS OF INSULIN GIVEN PER MD ORDER. WILL CONTINUE TO MONITOR PT FOR S/S OF HYPO/ HYPER GLYCEMIA. PT IS IN THE BED, CHANGE THE GOWN, PROVIDED FOOD. PT IS STABLE.
--- NOTE | 2021-06-04 13:59 | NUR ---
PT IS UP TO THE RESTROOM. PT HAD A LARGE AMOUNT OF LIQUID BM. CLEAR AND LIGHT BROWN IN COLOR. PT WAS ASSISTED BACK TO BED. GOWN WAS SOILED AND WAS CHANGED. BEDSIDE COMMODE PLACED NEAR BEDSIDE.
--- NOTE | 2021-06-04 14:53 | NUR ---
HOURLY ROUND DONE, PT IS IN THE BED, DENIES PAIN AND DISCOMFORT, NO SOB NOTED, PT REPORTED A BOWEL MOVEMENT. WILL CONTINUE TO MONITOR PT.
[2021-06-04 15:06] LABS: FERRITIN 18 ng/mL (15-150)
[2021-06-04 16:00] VITALS: BP 133/63
[2021-06-04] MEDS ORDERED: METOPROLOL 5 MG/5 ML VIAL IVP SCH (16:55)
--- NOTE | 2021-06-04 17:13 | NUR ---
BLOOD SUGAR 106 MG/DL NO INSULIN COVERAGE NEEDED WILL CONTINUE TO MONITOR PT FOR HYPOGLYCEMIA.
--- NOTE | 2021-06-04 18:17 | NUR ---
PT IS SITTING UP IN BED, DRINKING BOWEL PREP. PT HAS HAD MULTIPLE BM'S TODAY. LIQUID, CLEAR, AND LIGHT BROWN IN COLOR. PT HAS BEDSIDE COMMODE FOR ASSISTANCE. PT IS SR ON TELE MONITORING. DENIES PAIN AT THIS TIME.
--- NOTE | 2021-06-04 19:27 | NUR ---
ENDORSED THE NIGHT NURSE FOR CONTINUITY OF CARE. PT IS STABLE.
--- NOTE | 2021-06-04 19:30 | NUR ---
RECEIVED REPORT FROM CRISTIAN ADDISON FOR CONTINUITY OF CARE. PT SITTING UP AAOX4. NO APPARENT S/S OF ACUTE DISTRESS. BREATHING EVEN AND UNLABORED ON RA WITH O2 SAT OF 100%. NO C/O CP, SOB OR PAIN. CURRENTLY BOWEL PREP IN PROGRESS, TOLERATING WELL. POC AND WHITE COMMUNICATION BOARD UPDATED. BED IN LOW/LOCKED POSITION. CALL LIGHT WITHIN REACH. PT ENCOURAGED TO CALL FOR ANY NEEDS/ASSISTANCE. WILL CONTINUE TO MONITOR.
[2021-06-04 20:00] VITALS: BP 150/65
[2021-06-05] VITALS: BP 143/65
[2021-06-05 04:00] VITALS: BP 140/77
[2021-06-05] MEDS: HYDROcodone/APAP 5/325 MG 1 TAB TAB PO PRN ×3 (04:05→17:23)
[2021-06-05 06:42] LABS: BASOPHILS % (AUTO) 0.4 % (0.0-2.0); EOSINOPHILS # (AUTO) 0.2 K/uL (0-0.4); EOSINOPHILS % (AUTO) 2.3 % (0.0-4.0); LYMPHOCYTES # (AUTO) 1.5 K/uL (2.5-16.5); LYMPHOCYTES % (AUTO) 16.7 % (20.5-51.1); MEAN CORPUSCULAR HEMOGLOBIN 25 pg (27-31); MEAN CORPUSCULAR HGB CONC 31 g/dL (33-37); MEAN CORPUSCULAR VOLUME 80.4 fL (80-94); MONOCYTES # (AUTO) 0.8 K/uL (0.8-1.0); MONOCYTES % (AUTO) 9.5 % (1.7-9.3); NEUTROPHILS # (AUTO) 6.3 K/uL (1.8-7.7); NEUTROPHILS % (AUTO) 71.1 % (42.2-75.2); PLATELET COUNT (AUTO) 397 K/uL (140-450); RED BLOOD CELL COUNT(AUTO) 3.23 MIL/uL (4.20-5.40); RED CELL DISTRIBUTION WIDTH 18.9 % (11.6-13.7); WHITE BLOOD COUNT (AUTO) 8.9 K/uL (4.8-10.8)
--- NOTE | 2021-06-05 06:53 | NUR ---
REPORT GIVEN TO JHONY ADDISON FOR CONTINUITY OF CARE. PT SITTING UP AAOX4. NO APPARENT S/S OF ACUTE DISTRESS. BREATHING EVEN AND UNLABORED. BED IN LOW/LOCKED POSITION. CALL LIGHT WITHIN REACH. ALL NEEDS MET AT THIS TIME.
--- NOTE | 2021-06-05 07:24 | NUR ---
RECEIVED REPORT FROM DIGITAL SALES EXECUTIVE NURSE FOR CONTINUITY OF CARE, POC DISCUSSED. PT IS ASLEEP IN BED WITH NO ACUTE S/S OF DISTRESS. PT IS ON 2L NC WITH CHEST RISING AND FALLING EVEN AND UNLABORED. PT IS SCHEDULED FOR A COLONOSCOPY AT 1000AM. REPORTED THAT BOWEL PREP FOR PT HAS BEEN COMPLETED. PT WAS PLACED ON NPO STATUS THIS MORNING. MD MADE AWARE OF NOT HAVING CLEAR STOOL, AWAITING ORDER FOR MORE BOWEL PREP. PT BLOOD GLUCOSE IS 119. ALL SAFETY MEASURES IN PLACE, CALL LIGHT WITHIN REACH. WILL CONTINUE TO MONITOR.
[2021-06-05 07:31] LABS: ALBUMIN 2.6 g/dL (3.4-5.0); ANION GAP 8.2 (8-16); ASPARTATE AMINOTRANSFERASE 18 U/L (15-37); CARBON DIOXIDE 33.8 mmol/L (21-32); CHLORIDE 109 mmol/L (98-107); CREATININE 0.9 mg/dL (0.6-1.3); GLUCOSE 134 mg/dL (74-106); PHOSPHORUS 3.1 mg/dL (2.5-4.9); SODIUM SERUM 148 mmol/L (136-145); TOTAL BILIRUBIN 0.2 mg/dL (0.0-1.0); UREA NITROGEN, BLOOD 13 mg/dL (7-18)
[2021-06-05] MEDS: BLOOD GLUCOSE MONITORING 1 DEV DEV FS SCH ×4 (07:44→20:15)
[2021-06-05 08:00] VITALS: BP 127/86
--- NOTE | 2021-06-05 08:28 | NUR ---
DR. EPSTEIN CALLED, ORDERING PT TO DRINK 1L OF WATER TO FLUSH OUT SYSTEM PRIOR TO COLONOSCOPY. INFORMED PT AND PROVIDED 1L OF WATER.
[2021-06-05] MEDS: CALCIUM CARBONATE 500 MG TAB PO SCH (09:00)
[2021-06-05] MEDS: PREGABALIN 50 MG CAP PO SCH ×3 (09:00→16:33)
[2021-06-05] MEDS: AMIODARONE 200 MG TAB PO SCH ×3 (09:00→16:32)
[2021-06-05] MEDS: bisacodyL 5 MG TABEC PO SCH ×2 (09:00→16:33)
[2021-06-05] MEDS: SUCRALFATE 1 GM TAB PO SCH ×2 (09:00→20:08)
[2021-06-05] MEDS: DULoxetine 30 MG CAPDR PO SCH ×2 (09:00→20:08)
[2021-06-05 09:06] LABS: TRANSFERRIN 300 mg/dL (149-313)
--- NOTE | 2021-06-05 09:08 | NUR ---
DENIA IV MEDICATION ADMINISTERED PER MD ORDER, PO MEDICATION NON ADMINISTERED PER MD ORDER. PT BOWEL MOVEMENT HAD MODERATE SEDIMENT.
[2021-06-05] MEDS: PANTOPRAZOLE 40 MG INJ VIAL IVP SCH (09:19)
--- NOTE | 2021-06-05 09:21 | NUR ---
PT REPORT MOD PAIN, MEDICATED PER MD ORDER. ALL SAFETY MEASURES IN PLACE. CALL LIGHT WITHIN REACH. WILL CONTINUE TO MONITOR.
[2021-06-05] MEDS ORDERED: POTASSIUM CHLORIDE 40 MEQ, LIDOCAINE MPF 1% 25 MG in NACL 0.9% 250 ML IV SCH (09:30)
--- NOTE | 2021-06-05 09:33 | NUR ---
POTASSIUM ADMINISTERED PER MD ORDER FOR A POTASSIUM LEVEL OF 3.0. PT EDUCATION PROVIDED, PT NODDED IN UNDERSTANDING. ALL SAFETY MEASURES IN PLACE, CALL LIGHT WITHIN REACH. WILL CONTINUE TO MONITOR.
--- NOTE | 2021-06-05 10:08 | NUR ---
PT HAD A BOWEL MOVEMENT THAT WAS CLEAR, NO SEDIMENT NOTED.
--- NOTE | 2021-06-05 10:47 | NUR ---
PT PICKED UP FROM THE OR IN STABLE CONDITION. GAVE REPORT TO OR NURSE. PT CELL PHONE AND EARRINGS PLACED AT BEDSIDE.
[2021-06-05] MEDS ORDERED: diphenhydrAMINE 50 MG/ML VIAL ONE (10:50)
[2021-06-05] MEDS ORDERED: fentaNYL citrate 0.05 MG/ML VIAL ONE (10:50)
[2021-06-05] MEDS ORDERED: MIDAZOLAM 5 MG/5 ML VIAL ONE (10:51)
[2021-06-05] MEDS ORDERED: LIDOCAINE 2% 100 MG/5 ML UJET TP ONE ×2 (10:51→11:15)
[2021-06-05] MEDS ORDERED: fentaNYL citrate 0.05 MG/ML VIAL IVP ONE (11:15)
[2021-06-05] MEDS ORDERED: MIDAZOLAM 2 MG/2 ML VIAL IVP ONE (11:15)
--- NOTE | 2021-06-05 11:32 | NUR ---
PT RETURNED FROM COLONOSCOPY. PT IS STABLE. POSTOP VITAL SIGNS TAKE. WILL CONTINUE TO MONITOR.
--- NOTE | 2021-06-05 11:48 | NUR ---
DENIA MEDICATION ADMINISTERED PER MD ORDER. PT TOLERATED ADMINISTRATION. PT BLOOD GLUCOSE IS 113, NO INSULIN COVERAGE NEEDED AT THIS TIME. ALL SAFETY MEASURES IN PLACE. CALL LIGHT WITHNI REACH. WILL CONTINUE TO MONITOR.
[2021-06-05 12:00] VITALS: BP 159/92
[2021-06-05] MEDS: NACL 0.9% 1,000 ML IV SCH (12:19)
--- NOTE | 2021-06-05 13:03 | NUR ---
PT IS ASLEEP IN BED WITH NO ACUTE S/S OF DISTRESS, ALL SAFETY MEASURES IN PLACE. CALL LIGHT WITHIN REACH. WILL CONTINUE TO MONITOR.
--- NOTE | 2021-06-05 15:33 | NUR ---
PRN PAINI MEDICATION ADMINISTERED PER MD ORDER. PT TOLERATED ADMINISTRATION. PT IV STILL RUNNING POTASSIUM IV, IV RATE SLOWED DUE TO INCREASED PAIN IN IV. ALL SAFETY MEASURES IN PLACE. WILL CONTINUE TO MONITOR. VITAL SIGNS WNL
[2021-06-05 16:00] VITALS: BP 149/69
--- NOTE | 2021-06-05 16:48 | NUR ---
PT BLOOD GLUCOSE IS 99, NO INSULIN COVERAGE NEEDED AT THIS TIME. ALL DENIA MEDICATION ADMINISTERED PER MD ORDER. PT TOLERATED ADMINISTRATION. ALL SAFETY MEASURES IN PLACE. CALL LIGHT WITHIN REACH. WILL CONTINUE TO MONITOR.
--- NOTE | 2021-06-05 18:59 | NUR ---
PT WILL BE ENDORSED TO SPECIAL DELIVERY CARRIER NURSE FOR CONTINUITY OF CARE IN STABLE CONDITION, POC DISCUSSED.
--- NOTE | 2021-06-05 19:30 | NUR ---
RECEIVED REPORT FROM KAYLEEN ADDISON FOR CONTINUITY OF CARE. PT SITTING UP AAOX4 WITH FAMILY AT BEDSIDE. NO APPARENT S/S OF ACUTE DISTRESS. BREATHING EVEN AND UNLABORED ON RA WITH O2 SAT OF 94%. NO C/O CP, SOB OR PAIN. POC AND WHITE COMMUNICATION BOARD UPDATED. BED IN LOW/LOCKED POSITION. CALL LIGHT WITHIN REACH. PT/FAMILY ENCOURAGED TO CALL FOR ANY NEEDS/ASSISTANCE. WILL CONTINUE TO MONITOR. Addendum: 06/05/21 at 2038 by Yessica Rutherford RN RECEIVED REPORT FROM JHONY ADDISON, NOT KAYLEEN ADDISON.
[2021-06-05 20:00] VITALS: BP 145/64
[2021-06-05] MEDS: INSULIN LISPRO SLIDING SCALE 100 UNITS/ML VIAL SUBQ PRN (20:09)
[2021-06-06] VITALS: BP 159/52
[2021-06-06 04:00] VITALS: BP 149/72
[2021-06-06] MEDS: NACL 0.9% 1,000 ML IV SCH (05:42)
--- NOTE | 2021-06-06 07:24 | NUR ---
PT ENDORSED BY STOCK CONTROLLER NURSE FOR CONTINUITY OF CARE, POC DISCUSSED. PT IS ASLEEP IN BED ON HER SIDE WITH CHEST RISING AND FALLING EVEN AND UNLABORED. PT IS STABLE ON TELE MONITOR. ALL SAFETY MEASURES IN PLACE, CALL LIGHT WITHIN REACH. WILL CONTINUE TO MONITOR.
[2021-06-06 07:38] LABS: BASOPHILS % (AUTO) 0.6 % (0.0-2.0); EOSINOPHILS # (AUTO) 0.3 K/uL (0-0.4); EOSINOPHILS % (AUTO) 3.9 % (0.0-4.0); HEMATOCRIT 25.2 % (36-48); HEMOGLOBIN 7.9 g/dL (12.0-16.0); LYMPHOCYTES # (AUTO) 1.5 K/uL (2.5-16.5); LYMPHOCYTES % (AUTO) 19.8 % (20.5-51.1); MEAN CORPUSCULAR HEMOGLOBIN 25 pg (27-31); MEAN CORPUSCULAR HGB CONC 31 g/dL (33-37); MEAN CORPUSCULAR VOLUME 79.4 fL (80-94); MONOCYTES # (AUTO) 0.6 K/uL (0.8-1.0); MONOCYTES % (AUTO) 8.3 % (1.7-9.3); NEUTROPHILS % (AUTO) 67.4 % (42.2-75.2); PLATELET COUNT (AUTO) 343 K/uL (140-450); RED BLOOD CELL COUNT(AUTO) 3.17 MIL/uL (4.20-5.40); RED CELL DISTRIBUTION WIDTH 19.6 % (11.6-13.7); WHITE BLOOD COUNT (AUTO) 7.4 K/uL (4.8-10.8)
[2021-06-06] MEDS: BLOOD GLUCOSE MONITORING 1 DEV DEV FS SCH ×3 (07:55→16:11)
[2021-06-06 08:00] VITALS: BP 132/57
[2021-06-06] MEDS: CALCIUM CARBONATE 500 MG TAB PO SCH (08:37)
[2021-06-06] MEDS: SUCRALFATE 1 GM TAB PO SCH (08:37)
[2021-06-06] MEDS: PANTOPRAZOLE 40 MG INJ VIAL IVP SCH (08:37)
[2021-06-06] MEDS: AMIODARONE 200 MG TAB PO SCH ×3 (08:37→16:11)
[2021-06-06] MEDS: bisacodyL 5 MG TABEC PO SCH ×2 (08:38→16:11)
[2021-06-06] MEDS: DULoxetine 30 MG CAPDR PO SCH (08:38)
[2021-06-06] MEDS: PREGABALIN 50 MG CAP PO SCH ×3 (08:38→16:11)
[2021-06-06 08:40] LABS: ALBUMIN 2.5 g/dL (3.4-5.0); ANION GAP 8.1 (8-16); ASPARTATE AMINOTRANSFERASE 20 U/L (15-37); CARBON DIOXIDE 32.1 mmol/L (21-32); CHLORIDE 107 mmol/L (98-107); CREATININE 0.8 mg/dL (0.6-1.3); GLUCOSE 100 mg/dL (74-106); PHOSPHORUS 3.2 mg/dL (2.5-4.9); POTASSIUM 3.2 mmol/L (3.5-5.1); SODIUM SERUM 144 mmol/L (136-145); TOTAL BILIRUBIN 0.3 mg/dL (0.0-1.0); UREA NITROGEN, BLOOD 7 mg/dL (7-18)
--- NOTE | 2021-06-06 08:46 | NUR ---
DENIA MEDICATION ADMINISTERED PER MD ORDER. PT TOLERATED ADMINISTRATION. PT HAS BREAKFAST AT BEDSIDE. ALL SAFETY MEASURES IN PLACE. CALL LIGHT WITHIN REACH. WILL CONTINUE TO MONITOR.
--- NOTE | 2021-06-06 10:45 | NUR ---
RECEIVED REPORT FROM JHONY ADDISON
[2021-06-06] MEDS ORDERED: DIGOXIN 0.25 MG/ML AMP IV SCH (11:15)
[2021-06-06 12:00] VITALS: BP 154/75
[2021-06-06] MEDS ORDERED: DIGO0.122 PO (12:14)
[2021-06-06] MEDS ORDERED: APIX5TAB PO (12:14)
[2021-06-06] MEDS ORDERED: AMIO200T66 PO (12:14)
--- NOTE | 2021-06-06 12:30 | NUR ---
WITH C/O ACHING ABD PAIN 05/09. DILAUDID GIVEN ORDERED
[2021-06-06 13:01] VITALS: BP 152/75
--- NOTE | 2021-06-06 14:30 | NUR ---
DISCHARGE INSTRUCTIONS AND PRESCRIPTION GIVEN. VERBALIZED UNDERSTANDING
[2021-06-06] MEDS ORDERED: FUROSEMIDE 40 MG TAB PO SCH (17:00)
[2021-06-06] MEDS ORDERED: carvediloL 6.25 MG TAB PO SCH (21:00)
[2021-06-06] MEDS ORDERED: APIXABAN 2.5 MG TAB PO SCH (21:00)
[2021-06-07] MEDS ORDERED: LOSARTAN 25 MG TAB PO SCH (09:00)
== END 2021-06-06 16:50 | disposition home health service (06) | DRG 377 ==
LOC: MED 12:07 → MTU 16:18
PROVIDERS: ADMIT Hospitalist; ATTEND Hospitalist
PROC: 0DJD8ZZ Inspection of Lower Intestinal Tract, Via Natural or Artificial Opening Endoscopic (ICD-10-PCS; principal; 2021-06-05 10:00)
DX: K57.31 Diverticulosis of large intestine without perforation or abscess with bleeding (principal); E43 Unspecified severe protein-calorie malnutrition; Z68.43 Body mass index [BMI] 50.0-59.9, adult; K27.4 Chronic or unspecified peptic ulcer, site unspecified, with hemorrhage; E11.40 Type 2 diabetes mellitus with diabetic neuropathy, unspecified; D50.9 Iron deficiency anemia, unspecified; K59.09 Other constipation; I11.0 Hypertensive heart disease with heart failure; I50.9 Heart failure, unspecified; D72.829 Elevated white blood cell count, unspecified; R07.9 Chest pain, unspecified; I49.5 Sick sinus syndrome; I25.10 Atherosclerotic heart disease of native coronary artery without angina pectoris; I48.0 Paroxysmal atrial fibrillation; E66.01 Morbid (severe) obesity due to excess calories; I05.0 Rheumatic mitral stenosis; R23.3 Spontaneous ecchymoses; M19.90 Unspecified osteoarthritis, unspecified site; I95.9 Hypotension, unspecified; K21.9 Gastro-esophageal reflux disease without esophagitis; Z20.822 Contact with and (suspected) exposure to COVID-19; Z90.49 Acquired absence of other specified parts of digestive tract; Z90.710 Acquired absence of both cervix and uterus; Z79.82 Long term (current) use of aspirin; Z79.899 Other long term (current) drug therapy; Z82.49 Family history of ischemic heart disease and other diseases of the circulatory system; Z82.61 Family history of arthritis; Z95.5 Presence of coronary angioplasty implant and graft
CPT/HCPCS: 36415; 71045; 80048; 80053; 81001; 82607; 82728; 82746; 82948; 83540; 83690; 83735; 84100; 84443; 84484; 85025; 85045; 87081; 87086; 93005; 93970; 96372; 96374; 97163-GP; 99285; C9113; J1160; J1200; J1815; J2001; J2250; J2270; J2405; J3010; J3480; J3490; J7030; Q0092; Q0162

== ENCOUNTER 2021-09-03 16:07 | Emergency (ER) | payer OTHER ==
[~2021-09-03] VITALS: Ht 142.2 cm; Wt 108.9 kg
[~2021-09-03 16:07] MED LIST changes: +AMIO200T66 PO; +APIX5TAB PO; -APR10 PO; -ASPI-1822 PO; +DIGO0.122 PO; -LOSA100T1 PO
[2021-09-03 16:22] VITALS: BP 173/68
--- NOTE | 2021-09-03 16:29 | NUR ---
PT AMBULATED WITH ASSIST TO CHC
[2021-09-03] MEDS ORDERED: DICYCLOMINE HCL LIQUID 20 MG, ALUMINUM HYD/MAG/SIMETHICONE 30 ML, LIDOCAINE VISCOUS 2% ... PO ONE ×3 (16:45)
[2021-09-03] MEDS ORDERED: ONDANSETRON 4 MG ODT PO ONE (16:45)
--- NOTE | 2021-09-03 16:56 | NUR ---
PT W/C ASSISTED TO BED 4.
--- NOTE | 2021-09-03 17:07 | NUR ---
ERMD AT BEDSIDE EVALUATING PT.
[2021-09-03] MEDS ORDERED: ALUMINUM HYD/MAG/SIMETHICONE 30 ML UDC ONE (17:10)
[2021-09-03] MEDS ORDERED: DICYCLOMINE HCL LIQUID 10 MG/5 ML UDC ONE (17:10)
[2021-09-03] MEDS ORDERED: ONDANSETRON 4 MG/2 ML VIAL IVP ONE ×2 (17:15→19:40)
--- NOTE | 2021-09-03 17:26 | NUR ---
81 Y/O BIB DAUGHTER FROM HOME, C/O EPIGASTRIC PAIN THAT STARTED YESTERDAY WITH CONSTIPATION, N&V WITH HEARTBURN. PAIN 04/08. DENIES ANYONE SICK IN HOUSEHOLD. DENIES COUGH, SOB, SORE THROAT OR CP. PMH: DM2, HTN, HEART PROBLEMS, ARTHRITIS NKA MED: DENIES
[2021-09-03 17:29] LABS: BASOPHILS % (AUTO) 0.3 % (0.0-2.0); EOSINOPHILS # (AUTO) 0.1 K/uL (0-0.4); EOSINOPHILS % (AUTO) 1.4 % (0.0-4.0); HEMATOCRIT 33.7 % (36-48); HEMOGLOBIN 10.9 g/dL (12.0-16.0); LYMPHOCYTES # (AUTO) 1.2 K/uL (2.5-16.5); LYMPHOCYTES % (AUTO) 15.2 % (20.5-51.1); MEAN CORPUSCULAR HEMOGLOBIN 27 pg (27-31); MEAN CORPUSCULAR HGB CONC 33 g/dL (33-37); MEAN CORPUSCULAR VOLUME 84.3 fL (80-94); MONOCYTES # (AUTO) 0.5 K/uL (0.8-1.0); MONOCYTES % (AUTO) 6.3 % (1.7-9.3); NEUTROPHILS # (AUTO) 5.9 K/uL (1.8-7.7); NEUTROPHILS % (AUTO) 76.8 % (42.2-75.2); PLATELET COUNT (AUTO) 285 K/uL (140-450); RED CELL DISTRIBUTION WIDTH 28.2 % (11.6-13.7); WHITE BLOOD COUNT (AUTO) 7.7 K/uL (4.8-10.8)
[2021-09-03 18:07] LABS: ALBUMIN 3.3 g/dL (3.4-5.0); AMYLASE 19 U/L (25-115); ASPARTATE AMINOTRANSFERASE 19 U/L (15-37); CARBON DIOXIDE 29.3 mmol/L (21-32); CHLORIDE 102 mmol/L (98-107); CREATININE 0.8 mg/dL (0.6-1.3); GLUCOSE 140 mg/dL (74-106); LIPASE 22 U/L (73-393); POTASSIUM 4.3 mmol/L (3.5-5.1); SODIUM SERUM 139 mmol/L (136-145); TOTAL BILIRUBIN 0.3 mg/dL (0.0-1.0); UREA NITROGEN, BLOOD 16 mg/dL (7-18)
[2021-09-03] MEDS ORDERED: NACL 0.9% 500 ML IV ONE (19:40)
[2021-09-03] MEDS ORDERED: MORPHINE SULFATE 4 MG/ML SYR IVP ONE (19:40)
[2021-09-03 21:00] VITALS: BP 139/56
[2021-09-03] MEDS ORDERED: MAG-27 PO (21:28)
--- NOTE | 2021-09-03 21:35 | NUR ---
MEDICATED PER ERMDS ORDER, TOKLERATED WELL.
[2021-09-03] MEDS ORDERED: MORPHINE SULFATE 4 MG/ML SYR ONE (21:54)
[2021-09-03] MEDS ORDERED: ONDANSETRON 4 MG/2 ML VIAL ONE (21:55)
[2021-09-03 22:00] LABS: APPEARANCE,URINE CLEAR (CLEAR); BILIRUBIN,URINE NEGATIVE (NEGATIVE); BLOOD, URINE NEGATIVE (NEGATIVE); COLOR,URINE YELLOW (YELLOW); LEUKOCYTE ESTERASE ,URINE NEGATIVE (NEGATIVE); NITRITE, URINE NEGATIVE (NEGATIVE); PH,URINE 7.5 (5.0-9.0); UGLUCOSE NEGATIVE (NEGATIVE)
--- NOTE | 2021-09-03 22:33 | NUR ---
Patient discharged with v/s stable. Written and verbal after care instructions given and explained. Patient alert, oriented and verbalized understanding of instructions. Ambulatory with steady gait. All questions addressed prior to discharge. ID band removed. Patient advised to follow up with PMD. Rx of MYLANTA given. Patient educated on indication of medication including possible reaction and side effects. Opportunity to ask questions provided and answered.
== END 2021-09-03 22:33 | disposition home or self-care (01) ==
LOC: MED 16:07
DX: K29.70 Gastritis, unspecified, without bleeding (principal); R11.0 Nausea; E11.9 Type 2 diabetes mellitus without complications; K21.9 Gastro-esophageal reflux disease without esophagitis; I10 Essential (primary) hypertension; Z85.3 Personal history of malignant neoplasm of breast; Z79.84 Long term (current) use of oral hypoglycemic drugs; Z79.899 Other long term (current) drug therapy
CPT/HCPCS: 36415; 80053; 81003; 82150; 83690; 84484; 85025; 93005; 96361; 96374; 96375; 96376; 99284; J2270; J2405; J7030